=== PATIENT | female | born 1960 | race Caucasian/White ===

== ENCOUNTER → 2024-12-22 15:23 | Outpatient (BNVA) | payer OTHER, SELFPAY | PROVIDERS: PCP Internal Medicine; Visit Provider Surgery ==

== ENCOUNTER 2024-12-31 08:05 | Outpatient (AMB) | payer OTHER, SELFPAY ==
--- OUTSIDE RECORDS SUMMARY | 2024-12-31 08:14 | XMS_ITS | Clinical Summary ---
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 - Each Nare Active semaglutide (Wegovy) 0.25 mg/0.5 mL injection penIndications:C lass 3 severe obesity due to excess calories without serious comorbidity with body mass index (BMI) of 45.0 to 49.9 in adult Inject 0.25 mg under the skin every 7 (seven) days. 2 mL 11/05/2024 Active Active Problems Problem Noted Date Diagnosed Date Nausea and vomiting 10/23/2024 Current moderate episode of major depressive disorder (CMS/HCC V24, CMS/HCC V28) 08/10/2023 GERD (gastroesophageal reflux disease) 2 Hypertension 07/07/2022 Obesity 07/07/2022 Osteoarthritis 07/07/2022 Encounters Date Type Department Care Team Description 11/19/2024 Telephone Pediatrics - [address] [phone] Jose Rafael George MD prior auth 11/05/2024 9:45 AM EST Office Visit [facility] [address] [place] [phone] Jose Rafael George MD Follow-up exam (Primary Dx); Class 3 severe obesity due to excess calories without serious comorbidity with body mass index (BMI) of 45.0 to 49.9 in adult ([facility] V24, [facility] V28) 11/05/2024 Telephone [facility] - [facility] [address] [place], [place] [phone] Jose Rafael George MD Prior Authorization 10/23/2024 5:26 PM EST - 10/24/2024 2:13 PM EST Hospital Encounter [facility] Emergency [address] [place] [id number] Cora Noland DO Ishtiaq, Rizwan, MD Santoyo-Pach eco, Omar D, MD Intractable nausea (Primary Dx); Dizziness Discharge Disposition: Home or Self Care from Last 3 Months Immunizations Name Administration Dates Next Due Influenza, Unspecified 06/11/2023,06/15/2022 Medical History Medical History Date Comments Hypertension 07/07/2022 DX:Hypertension Obesity 07/07/2022 DX:Obesity GERD (gastroesophageal reflux disease) DX:GERD (gastroesophageal reflux disease) Osteoarthritis 07/07/2022 DX:Osteoarthriti s Social History Tobacco Use Types Packs/Day Years Used Date Smoking Tobacco: Never Smokeless Tobacco: Never Tobacco Cessation:Counseling Given: Not Answered Alcohol Use Standard Drinks/Week Comments Yes 0 (1 standard drink = 0.6 oz pur e alcohol) Comments No Sex and Gender Information Value Date Recorded Sex Assigned at Female 10/23/2024 5:35 PM EST Legal Sex Female 5:11 PM EST Gender Identity Female 10/23/2024 5:35 PM EST Sexual Orientation Straight 10/23/2024 5: 35 PM EST Obstetrics History Last Filed Vital Signs Vital Sign Reading Time Taken Comments Blood Pressure 117/80 11/05/2024 10:02 AM EST Pulse 84 11/05/2024 10:02 AM EST Temperature 36.5 ??C (97.7 ??F) 10/24/2024 6:22 AM ES T Respiratory Rate 16 10/24/2024 12:05 PM EST Oxygen Saturation 96% 10/24/2024 12:05 PM EST Inhaled Oxygen Concentration - - Weight 126 kg (277 lb 12.8 oz) 11/05/2024 10:02 AM EST Height 162.6 cm (5' 4 ) 11/05/2024 10:02 AM EST Body Mass Index 47.68 11/05/2024 10:02 AM EST Plan of Treatment Upcoming Encounters Date Type Department Care Team (Late st Contact Info) Description 01/13/2025 3:30 PM EDT Office Visit Internal Medicine - [facility] [address] [place], [place] [phone] Jose Rafael George MD [address] [place] [address] Health Maintenance Due Date Last Done Comments Breast Cancer Screening 1960 Pneumococcal Vaccine: 50+ Years (1 of 1 - PCV) 2011 Zoster Vaccines (1 of 2) 2011 RSV Immunization Adult Patients (1 - Risk 60-74 years 1-dose series) 2021 Depression Screening 08/20/2022 HIV Screening 08/20/2022 Social Influencers of Health Screening 08/20/2022 COVID-19 Vaccine ( season) 2024 09/08/2021, 01/20/2021, 12/23/2020 Hypertension/CHF/CAD Annual BMP Blood Test 10/24/2025 10/24/2024, 10/23/2024, 03/21/2024, Additional history exists Cervical Cancer Screening: Pap Smear 11/22/2025 11/22/2022 Cholesterol Screening (Lipid Panel) 10/24/2029 10/24/2024, 03/21/2024, 03/21/2024 DTaP,Tdap,and Td Vaccines (2 - Td or Tdap) 11/16/2029 11/17/2019 Colorectal Cancer Screening: Colonoscopy 10/26/2031 10/26/2021 Hepatitis C Screening Completed 04/19/2023 Influenza Vaccine Completed 08/04/2024, , 06/11/2023, Additional history exists HIB Vaccines Aged Out No longer eligi ble based on patient's age to complete this topic HPV Vaccines Aged Out No longer eligi ble based on patient's age to complete this topic Hepatitis A Vaccines Aged Out No long er eligible based on patient's age to complete this topic Hepatitis B Vaccines Aged Out No long er eligible based on patient's age to complete this topic IPV Vaccines Aged Out No longer eligi ble based on patient's age to complete this topic MMR Vaccines Aged Out No longer eligi ble based on patient's age to complete this topic Meningococcal ACWY Vaccine Aged Out N o longer eligible based on patient's age to complete this topic Meningococcal B Vaccine Aged Out No l onger eligible based on patient's age to complete this topic Pneumococcal Vaccine: Pediatrics (0 to 5 Years) and At-Risk Patients (6 to 64 Years) Aged Out No longer eligible based on patient's age to complete this topic RSV Immunization Patients Under 20 months Aged Out No longer eligible based on patient's age to complete this topic Varicella Vaccines Aged Out No longer eligible based on patient's age to complete this topic Procedures Procedure Name Priority Date/Time Associated Diagnosis Comments ECG ANNOTATED 10/27/2024 RESPIRATORY VIRUS PANEL MOLECULAR STUDY Routine 10/24/2024 9:[address] ANGIO HEAD/NECK WO AND/OR W CONTRAST STAT 10/24/2024 8:46 AM EST LIPID PANEL WITH REFLEX TO DIRECT LDL Add-On 10/24/2024 6:53 AM EST HEMOGLOBIN A1C Add-On 10/24/2024 6:53 AM EST THYROID STIMULATING HORMONE WITH REFLEX TO FREE T4 AND FREE T3 Add-On 10/24/2024 6:53 AM EST CBC WITH AUTO DIFFERENTIAL Routine 10/24/2024 6:53 AM EST MAGNESIUM Routine 10/24/2024 6:53 AM EST BASIC METABOLIC PANEL Routine 10/24/2024 6:53 AM EST CBC AND DIFFERENTIAL Routine 10/24/2024 6:53 AM EST IBRAHIM URINE CULTURE TUBE STAT 10/23/2024 9:15 PM EST URINALYSIS WITH REFLEX MICROSCOPIC AND CULTURE STAT 10/23/2024 9:15 PM EST URINALYSIS WITH REFLEX MICROSCOPIC AND CULTURE STAT 10/23/2024 9:[address] ABDOMEN PELVIS W CONTRAST STAT 10/23/2024 7:43 PM EST [id number], RSV, FLU A AND B QUALITATIVE RT-PCR, INTERNAL LAB STAT 10/23/2024 6:28 PM EST TROPONIN I HIGH SENSITIVITY STAT 10/23/2024 3:07 PM EST TROPONIN I HIGH SENSITIVITY STAT 10/23/2024 12:37 PM EST CBC WITH AUTO DIFFERENTIAL STAT 10/23/2024 12:37 PM EST MAGNESIUM STAT 10/23/2024 12:37 PM EST BASIC METABOLIC PANEL STAT 10/23/2024 12:37 PM EST CBC AND DIFFERENTIAL STAT 10/23/2024 12:37 PM EST ECG 12-LEAD STAT 10/23/2024 12:29 PM EST HM HEPATITIS C SCREENING Routine 04/19/2023 HM PAP SMEAR Routine 11/22/2022 HM COLONOSCOPY Routine 10/26/2021 from Last 3 Months or Most Recently Relevant to Health Maintenance Results * ECG-Annotated (10/27/2024) us Provider Onbase MD ECG ORDERABLES Final Result * Respiratory virus panel molecular study (10/24/2024 9:31 AM EST) Adenovirus Detection by PCR Not Detected Not Detected LAB MICROBIOLOGY METHOD 10/24/2024 10:44 AM [facility] Influenza A PCR Not Detected Not Detected LAB MICROBIOLOGY METHOD 10/24/2024 10:44 AM [facility] Influenza B PCR Not Detected Not Detected LAB MICROBIOLOGY METHOD 10/24/2024 10:44 AM [facility] Coronavirus 229E Not Detected Not Detected LAB MICROBIOLOGY METHOD 10/24/2024 10:44 AM [facility] Coronavirus HKU1 Not Detected Not Detected LAB MICROBIOLOGY METHOD 10/24/2024 10:44 AM [facility] Coronavirus OC43 Not Detected Not Detected LAB MICROBIOLOGY METHOD 10/24/2024 10:44 AM [facility] Coronavirus NL63 Not Detected Not Detected LAB MICROBIOLOGY METHOD 10/24/2024 10:44 AM [facility] Parainfluenza Virus 1 Not Detected Not Detected LAB MICROBIOLOGY METHOD 10/24/2024 10:44 AM [facility] Parainfluenza Virus 2 Not Detected Not Detected LAB MICROBIOLOGY METHOD 10/24/2024 10:44 AM [facility] Parainfluenza Virus 3 Not Detected Not Detected LAB MICROBIOLOGY METHOD 10/24/2024 10:44 AM [facility] Parainfluenza Virus 4 Not Detected Not Detected LAB MICROBIOLOGY METHOD 10/24/2024 10:44 AM [facility] RSV PCR Not Detected Not Detected LAB MICROBIOLOGY METHOD 10/24/2024 10:44 AM [facility] Human Metapneumovirus A and B Not Detected Not Detected LAB MICROBIOLOGY METHOD 10/24/2024 10:44 AM [facility] Rhinovirus/Entero virus Not Detected Not Detected LAB MICROBIOLOGY METHOD 10/24/2024 10:44 AM EST [facility] Bordetella pertussis Not Detected Not Detected LAB MICROBIOLOGY METHOD 10/24/2024 10:44 AM EST [facility] Bordetella parapertussis Not Detected Not Detected LAB MICROBIOLOGY METHOD 10/24/2024 10:44 AM EST [facility] Mycoplasma pneumo by PCR Not Detected Not Detected LAB MICROBIOLOGY METHOD 10/24/2024 10:44 AM EST [facility] Chlamydia pneumoniae Not Detected Not Detected LAB MICROBIOLOGY METHOD 10/24/2024 10:44 AM EST [facility] SARS COV-2 Not Detected Not Detected LAB MICROBIOLOGY METHOD 10/24/2024 10:44 AM [facility] Swab Both anterior nares / Unknown Non-blood Collection / Unknown 10/24/2024 9:31 AM EST 10/24/2024 9:44 AM EST [facility] - 10/24/2024 10:44 AM EST Testing was performed using the [employer] Respiratory Pathogen PCR Assay. All results must be correlated with the clinical findings. Results should not be used as the sole basis for diagnosis. False Negative results may occur from the presence of sequence variants in the region targeted by the assay or the presence of inhibitors. Results may be affected by concurrent antiviral/antimicrobial therapy or levels of organisms that are below the limit of detection. us Julius Crespo MD LAB MICROBIOLOGY - GENERAL ORD ERABLES Final Result [facility] [address] [place] [address], * CT Angio Head/Neck wo and/or w Contrast (10/24/2024 8:46 AM EST) Anatomical Region Laterality Modality Head and Neck Computed Tomogra phy 10/24/2024 12:5 8 PM EST Impressions 10/24/2024 1:02 PM EST NO ACUTE ABNORMALITY. -------- FINAL REPORT -------- Dictated By: Monique Henderson Dictated Date: 10/24/2024 12:58 ET Assigned Physician: Monique Henderson Reviewed and Electronically Signed By: Monique Henderson Signed Date: 10/24/2024 13:02 ET Workstation ID: [id number] Transcribed By: Self Edit Transcribed Date: 10/24/2024 12:58 ET Narrative 10/24/2024 1:02 PM EST PROCEDURE: CTA HEAD AND NECK INDICATION: Dizziness, non-specific TECHNIQUE: CTA of the head and neck with intravenous contrast. Multiplanar reformats. The examination was performed utilizing dose reduction techniques.3-D or MIP images were produced with postprocessing on an independent computer workstation. 90cc Omnipaque 370 injected. Scan was analyzed using Verimatrix AI based computer aided triage software. Total DLP: 1730 mGy/cm COMPARISON: ??No priors available. FINDINGS: ?? Noncon Brain: Cerebral hemispheres are symmetric without evidence for mass, hemorrhage or CT evidence for acute territorial infarct. ?? CTA Neck: There is a left-sided aortic arch. ??Great vessels are patent with conventional anatomy. Common carotid and internal carotid arteries are patent in the neck. ??Cervical vertebral arteries are patent. Visualized lung apices are clear. ??Soft tissues of the neck are normal. CTA Head: Intracranial portions of the internal carotid arteries are patent. Proximal middle and anterior circulation is patent. Vertebrobasilar system is patent. Proximal ophthalmic nurse are patent. Major dural venous sinuses opacify normally with contrast. Extracranial structures are unremarkable. ??Degenerative changes in the bones. Procedure Note Monique Henderson MD - 10/24/2024 PROCEDURE: CTA HEAD AND NECK INDICATION: Dizziness, non-specific TECHNIQUE: CTA of the head and neck with intravenous contrast. Multiplanarreformats. The examination was performed utilizing dose reductiontechniques.3-D or MIP images were produced with postprocessing on anindependent computer workstation. 90cc Omnipaque 370 injected. Scan wasanalyzed using [employer] Contact AI based computer aided triage software. Total DLP: 1730 mGy/cm COMPARISON: No priors available. FINDINGS: Noncon Brain: Cerebral hemispheres are symmetric without evidence for mass, hemorrhageor CT evidence for acute territorial infarct. CTA Neck: There is a left-sided aortic arch. Great vessels are patent withconventional anatomy. Common carotid and internal carotid arteries arepatent in the neck. Cervical vertebral arteries are patent. Visualized lung apices are clear. Soft tissues of the neck are normal. CTA Head: Intracranial portions of the internal carotid arteries are patent. Proximal middle and anterior circulation is patent. Vertebrobasilar system is patent. Proximal ophthalmic nurse are patent. Major dural venous sinuses opacify normally with contrast. Extracranial structures are unremarkable. Degenerative changes in thebones. IMPRESSION: NO ACUTE ABNORMALITY. -------- FINAL REPORT -------- Dictated By: Monique Henderson Dictated Date: 10/24/2024 12:58 ET Assigned Physician: Monique Henderson Reviewed and Electronically Signed By: Monique Henderson Signed Date: 10/24/2024 13:02 ET Workstation ID: [id number] Transcribed By: Self Edit Transcribed Date: 10/24/2024 12:58 ET us Cora Noland DO IMG CT PROCEDURES Final R esult * Thyroid stimulating hormone with reflex to free t4 and free t3 (10/24/2024 6:53 AM EST) [facility] TSH 0.82 0.40 - 4.00 mcIU/mL LAB CHEMISTRY METHOD 10/24/2024 8:04 AM EST [facility] Blood Venous blood specimen / Unknown Venipuncture / Unknown 10/24/2024 6:53 AM EST 10/24/2024 7:17 AM EST us Julius Crespo MD LAB BLOOD ORDERABLES Final Res ult [facility] [address] [place] [address], [place] [phone] * Lipid panel with reflex to direct LDL (10/24/2024 6:53 AM EST) Pathologist [facility] Cholesterol 158 0 - 200 mg/dL LAB CHEMISTRY METHOD 10/24/2024 7:56 AM EST [facility] Triglycerides 69 0 - 150 mg/dL LAB CHEMISTRY METHOD 10/24/2024 7:56 AM [facility] HDL 69 >=40 mg/dL LAB CHEMISTRY METHOD 10/24/2024 7:56 AM [facility] LDL Calculated 75 0 - 100 mg/dL LAB CHEMISTRY METHOD 10/24/2024 7:56 AM [facility] VLDL Cholesterol Antolin 13.8 mg/dL LAB CHEMISTRY METHOD 10/24/2024 7:56 AM [facility] Non HDL Chol. (LDL+VLDL) 89 <145 mg/dL LAB CHEMISTRY METHOD 10/24/2024 7:56 AM [facility] Chol/HDL Ratio 2.3 0.0 - 4.4 LAB CHEMISTRY METHOD 10/24/2024 7:56 AM [facility] Blood Venous blood specimen / Unknown Venipuncture / Unknown 10/24/2024 6:53 AM EST 10/24/2024 7:17 AM EST us Julius Crespo MD LAB BLOOD ORDERABLES Final Res ult [facility] [address] [place] [address], * (ABNORMAL) CBC auto differential (10/24/2024 6:53 AM EST) Only the most recent of2 resultswithin the time period is included. WBC 9.1 4.8 - 10.8 K/mcL LAB HEMETOLOGY METHOD 10/24/2024 7:28 AM [facility] RBC 4.00 3.80 - 4.80 M/mcL LAB HEMETOLOGY METHOD 10/24/2024 7:28 AM [facility] Hemoglobin 11.3(L) 11.5 - 16.0 g/dL LAB HEMETOLOGY METHOD 10/24/2024 7:28 AM [facility] Hematocrit 34.5(L) 35.0 - 47.0 % LAB HEMETOLOGY METHOD 10/24/2024 7:28 AM [facility] MCV 86.5 79.0 - 98.0 FL LAB HEMETOLOGY METHOD 10/24/2024 7:28 AM [facility] MCH 28.3 27.0 - 32.0 pcg LAB HEMETOLOGY METHOD 10/24/2024 7:28 AM [facility] MCHC 32.8 32.0 - 37.0 g/dL LAB HEMETOLOGY METHOD 10/24/2024 7:28 AM [facility] RDW 12.3 11.0 - 15.0 % LAB HEMETOLOGY METHOD 10/24/2024 7:28 AM [facility] Platelets 292 130 - 400 K/mcL LAB HEMETOLOGY METHOD 10/24/2024 7:28 AM [facility] MPV 10.2 7.0 - 11.0 FL LAB HEMETOLOGY METHOD 10/24/2024 7:28 AM [facility] NRBC 0.0 <1.0 % LAB HEMETOLOGY METHOD 10/24/2024 7:28 AM [facility] NRBC Absolute 0.00 <0.10 K/mcL LAB HEMETOLOGY METHOD 10/24/2024 7:28 AM [facility] Neutrophils Relative 79.3 % LAB HEMETOLOGY METHOD 10/24/2024 7:28 AM [facility] Lymphocytes Relative 15.1 % LAB HEMETOLOGY METHOD 10/24/2024 7:28 AM [facility] Monocytes Relative 4.9 % LAB HEMETOLOGY METHOD 10/24/2024 7:28 AM [facility] Eosinophils Relative 0.2 % LAB HEMETOLOGY METHOD 10/24/2024 7:28 AM EST [facility] Basophils Relative 0.2 % LAB HEMETOLOGY METHOD 10/24/2024 7:28 AM EST [facility] Immature Granulocytes Relative 0.3 % LAB HEMETOLOGY METHOD 10/24/2024 7:28 AM [facility] Neutrophils Absolute 7.19(H) 1.50 - 7.00 K/mcL LAB HEMETOLOGY METHOD 10/24/2024 7:28 AM EST [facility] Lymphocytes Absolute 1.37 1.00 - 5.00 K/mcL LAB HEMETOLOGY METHOD 10/24/2024 7:28 AM EST [facility] Monocytes Absolute 0.44 0.20 - 1.00 K/mcL LAB HEMETOLOGY METHOD 10/24/2024 7:28 AM [facility] Eosinophils Absolute 0.02 0.00 - 0.50 K/mcL LAB HEMETOLOGY METHOD 10/24/2024 7:28 AM EST [facility] Basophils Absolute 0.02 0.00 - 0.20 K/mcL LAB HEMETOLOGY METHOD 10/24/2024 7:28 AM EST [facility] Immature Granulocytes Absolute 0.03 0.00 - 0.03 K/mcL LAB HEMETOLOGY METHOD 10/24/2024 7:28 AM [facility] Blood Venous blood specimen / Unknown Venipuncture / Unknown 10/24/2024 6:53 AM EST 10/24/2024 7:17 AM EST us Julius Crespo MD LAB BLOOD ORDERABLES Final Res ult [facility]) [facility] [address] [place] [address], * Magnesium (10/24/2024 6:53 AM EST) Only the most recent of2 resultswithin the time period is included. Magnesium 2.3 1.9 - 2.6 mg/dL LAB CHEMISTRY METHOD 10/24/2024 7:56 AM EST [facility] Blood Venous blood specimen / Unknown Venipuncture / Unknown 10/24/2024 6:53 AM EST 10/24/2024 7:17 AM EST us Julius Crespo MD LAB BLOOD ORDERABLES Final Res ult Performing Organization Address [facility]/ZIP Co de Phone Number [facility] [address] [place] [address], [place] [phone] * Hemoglobin A1c (10/24/2024 6:53 AM EST) [facility] Hemoglobin A1C 5.6 <6.5 % LAB CHEMISTRY METHOD 10/24/2024 11:24 AM EST [facility] Mean Bld Glu Estim. 114 mg/dL LAB CHEMISTRY METHOD 10/24/2024 11:24 AM EST [facility] Blood Venous blood specimen / Unknown Venipuncture / Unknown 10/24/2024 6:53 AM EST 10/24/2024 7:17 AM EST us Julius Crespo MD LAB BLOOD ORDERABLES Final Res ult Performing Organization Address [facility]/ZIP Ri de Phone Number [facility] [address] [place] [address], [place] [phone] * (ABNORMAL) Basic metabolic panel (10/24/2024 6:53 AM EST) Only the most recent of2 resultswithin the time period is included. [facility] Sodium 141 133 - 145 mmol/L LAB CHEMISTRY METHOD 10/24/2024 7:56 AM EST [facility] Potassium 3.7 3.5 - 5.5 mmol/L LAB CHEMISTRY METHOD 10/24/2024 7:56 AM EST [facility] Chloride 111(H) 96 - 110 mmol/L LAB CHEMISTRY METHOD 10/24/2024 7:56 AM [facility] CO2 26 21 - 32 mmol/L LAB CHEMISTRY METHOD 10/24/2024 7:56 AM [facility] Anion Gap 4 3 - 11 LAB CHEMISTRY METHOD 10/24/2024 7:56 AM [facility] Glucose 104(H) 70 - 100 mg/dL LAB CHEMISTRY METHOD 10/24/2024 7:56 AM [facility] BUN 10 5 - 25 mg/dL LAB CHEMISTRY METHOD 10/24/2024 7:56 AM [facility] Creatinine 0.71 0.50 - 1.10 mg/dL LAB CHEMISTRY METHOD 10/24/2024 7:56 AM [facility] eGFR 96 >=60 mL/min/1. 73m2 LAB CHEMISTRY METHOD 10/24/2024 7:56 AM [facility] Comment:Calculation based on the??Chronic Kidney Disease Epidemiology Collaboration (CKD-EPI) equation refit??without adjustment for race. BUN/Creatinine Ratio 14.1 LAB CHEMISTRY METHOD 10/24/2024 7:56 AM [facility] Calcium 9.3 8.5 - 10.5 mg/dL LAB CHEMISTRY METHOD 10/24/2024 7:56 AM [facility] Blood Venous blood specimen / Unknown Venipuncture / Unknown 10/24/2024 6:53 AM EST 10/24/2024 7:17 AM EST us Julius Crespo MD LAB BLOOD ORDERABLES Final Res ult [facility] [address] [place] [address], * (ABNORMAL) Urinalysis with reflex microscopic and culture (10/23/2024 9:15 PM EST) Specific [place] Urine 1.042(H) 1.003 - 1.030 LAB URINALYSIS - AUTOMATED METHOD 10/23/2024 9:32 PM [facility] pH, Urine 7.0 5.0 - 8.0 pH LAB URINALYSIS - AUTOMATED METHOD 10/23/2024 9:32 PM [facility] Leukocytes, Urine Negative Negative LAB URINALYSIS - AUTOMATED METHOD 10/23/2024 9:32 PM [facility] Nitrite, Urine Negative Negative LAB URINALYSIS - AUTOMATED METHOD 10/23/2024 9:32 PM [facility] Protein, Urine Negative <=Trace mg/dL LAB URINALYSIS - AUTOMATED METHOD 10/23/2024 9:32 PM [facility] Glucose, Urine Negative Negative mg/dL LAB URINALYSIS - AUTOMATED METHOD 10/23/2024 9:32 PM [facility] Ketones, Urine Trace(A) Negative mg/dL LAB URINALYSIS - AUTOMATED METHOD 10/23/2024 9:32 PM [facility] Urobilinogen, Urine 0.2 0.2 - 1.0 mg/dL LAB URINALYSIS - AUTOMATED METHOD 10/23/2024 9:32 PM [facility] Bilirubin, Urine Negative Negative LAB URINALYSIS - AUTOMATED METHOD 10/23/2024 9:32 PM [facility] Blood, Urine Negative Negative LAB URINALYSIS - AUTOMATED METHOD 10/23/2024 9:32 PM [facility] Urine Urine specimen obtained by clean catch procedure / Unknown Non-blood Collection / Unknown 10/23/2024 9:15 PM EST 10/23/2024 9:26 PM EST us Cora Noland DO LAB URINE ORDERABLES Raquel l Result [facility] [address] [place] [address], [place] [phone] * Ibrahim urine culture tube (10/23/2024 9:15 PM EST) Extra Tube Hold for add-ons. 10/23/2024 11:01 PM EST [facility] Comment:Auto resulted. Urine Urine specimen obtained by clean catch procedure / Unknown Non-blood Collection / Unknown 10/23/2024 9:15 PM EST 10/23/2024 9:26 PM EST us Cora Noland DO LAB URINE ORDERABLES Raquel l Result [facility] ([facility]) [facility] [address] [place] [address], [place] [phone] * CT Abdomen Pelvis w Contrast (10/23/2024 7:43 PM EST) Anatomical Region Laterality Modality Body Computed Tomogra phy 10/23/2024 8:14 PM EST Impressions 10/23/2024 8:14 PM EST 1. No acute intraabdominal or pelvic pathology. This document has been electronically signed by: Christopher Gutierrez MD on 10/23/2024 20:14:57 Narrative 10/23/2024 8:14 PM EST INDICATION: Abdominal abscess/infection suspected CT abdomen and pelvis with contrast Comparison: None Findings: Small hiatal hernia. Visualized lungs are clear. Hepatic steatosis. Fatty atrophy of the distal pancreas. No pancreatic duct dilatation. Spleen, gallbladder, and adrenal glands are within normal limits. No hydronephrosis. Symmetric contrast enhancement of the kidneys. Left cortical cysts. No biliary duct dilatation. No bowel obstruction, pneumoperitoneum, or pneumatosis. Pelvic contents unremarkable. Hemangioma at L3. No acute fracture. Procedure Note Christopher Gutierrez MD - 10/23/2024 INDICATION: Abdominal abscess/infection suspected CT abdomen and pelvis with contrast Comparison: None Findings: Small hiatal hernia. Visualized lungs are clear. Hepatic steatosis. Fatty atrophy of the distal pancreas. No pancreatic duct dilatation. Spleen, gallbladder, and adrenal glands are within normal limits. No hydronephrosis. Symmetric contrast enhancement of the kidneys. Left cortical cysts. No biliary duct dilatation. No bowel obstruction, pneumoperitoneum, or pneumatosis. Pelvic contents unremarkable. Hemangioma at L3. No acute fracture. IMPRESSION: 1. No acute intraabdominal or pelvic pathology. This document has been electronically signed by: Christopher Gutierrez MD on 10/23/2024 20:14:57 [facility] PROCEDURES Final R esult * [id number], RSV, Influenza A and B qualitative RT-PCR (10/23/2024 6:28 PM EST) Pathologist [facility] Influenza A PCR Not Detected Not Detected LAB MICROBIOLOGY METHOD 10/23/2024 8:00 PM EST [facility] Influenza B PCR Not Detected Not Detected LAB MICROBIOLOGY METHOD 10/23/2024 8:00 PM [facility] RSV PCR Not Detected Not Detected LAB MICROBIOLOGY METHOD 10/23/2024 8:00 PM [facility] SARS COV-2 Not Detected Not Detected LAB MICROBIOLOGY METHOD 10/23/2024 8:00 PM [facility] Swab Nasopharyngeal structure / Unknown Non-blood Collection / Unknown 10/23/2024 6:28 PM EST 10/23/2024 7:09 PM EST [facility] - 10/23/2024 8:00 PM EST Disclaimer: ??Testing was performed using the [employer] GeneXpert Xpress SARS-CoV-2 _Flu_RSV PLUS PCR assay. ??The manner in which this information is used to guide patient care is the responsibility of the healthcare provider. ??Results should be correlated with the clinical history, epidemiological data, and other data available to the clinician evaluating the patient. ??Negative results do not preclude infection. ??This test has been authorized by the FDA under an Emergency Use Authorization (EUA). ??This test is only authorized for the duration of time the declaration that circumstances exist justifying the authorization of the emergency use of in vitro diagnostic tests for detection of SARS-CoV-2 virus and/or diagnosis of COVID-19 infection under section 564 (b) (1) of the Act, 21 U.S.C 360bbb-3 (b) (1), unless the authorization is terminated or revoked sooner. ?? Reference Range: Not Detected Fact sheet for Healthcare providers can be found at https://www.fda.gov/media/330837/download. ?? Fact sheet for Healthcare patients can be found at https://www.fda.gov/media/711994/download. Cora Noland DO LAB MICROBIOLOGY - GENERA L ORDERABLES Final Result Performing Organization Address City/[facility]/ZIP Co de Phone Number [facility] [address] [place] [address], * Troponin I high sensitivity (10/23/2024 3:07 PM EST) Only the most recent of2 resultswithin the time period is included. [facility] High Sensitivity Troponin I 33 <=54 ng/L LAB CHEMISTRY METHOD 10/23/2024 5:17 PM EST [facility] Blood Venous blood specimen / Unknown Venipuncture / Unknown 10/23/2024 3:07 PM EST 10/23/2024 3:38 PM EST Narrative [facility] - 10/23/2024 5:17 PM EST High levels of biotin in samples may falsely decrease hsTroponin values. ??Use caution when interpreting hsTroponin results in patients taking biotin who exhibit renal impairment (eGFR <60) or in patients taking more than 20 mg/day of biotin. Judah Lala MD LAB BLOOD ORDERABLES Final Result Performing Organization Address [facility]/ZIP Co de Phone Number [facility] [address] [place] [address], [place] [phone] * ECG 12 lead (10/23/2024 12:29 PM EST) [facility] Ventricular Rate ECG 75 BPM GEMUSE Atrial Rate 75 BPM GEMUSE P-R Interval 116 ms GEMUSE QRS Duration 76 ms GEMUSE Q-T Interval 380 ms GEMUSE QTc 424 ms GEMUSE P Wave [place] 38 degrees GEMUSE R [place] 5 degrees GEMUSE T [place] 7 degrees GEMUSE ECG Interpretation Normal sinus rhythm Normal ECG No previous ECGs available Confirmed by DAVID SIERRA ([id number]) on 10/26/2024 8:48:41 AM GEMUSE 10/23/2024 12:2 9 PM EST 10/26/2024 8:48 AM EST Cora Vlad Wai Ludin DO ECG ORDERABLES Final Res ult GEMUSE * Hepatitis C Screening (04/19/2023) Pathologist [facility] Hepatitis C Screening abstracted Historical Provider HEALTH MAINTENANCE Final Result * Pap Smear (11/22/2022) Pap smear normal,abs tracted Historical Provider HEALTH MAINTENANCE Final Result * Colonoscopy (10/26/2021) Pathologist [facility] Colonoscopy normal,abs tracted Anatomical Region Laterality Modality Other Historical Provider HEALTH MAINTENANCE Final Result from Last 3 Months or Most Recently Relevant to Health Maintenance Insurance [facility] Advance Directives * Full Code - Default (Latest Code Status on File) Date Activated Date Inactivated Comments 10/23/2024 10:41 PM 10/24/2024 4:13 PM This is ord er is used when code status has not been discussed with the patient, or code status is otherwise unknown/unconfirmed To update the patient's code status, place a code status order. Do not modify or discontinue any currently active code status orders. Care Teams [employer] Relationship Specialty Start Date End Date Jose Rafael George MD [address] [place] [id number] PCP - General Internal Medicine 10/23/24
--- NOTE | 2024-12-31 12:16 | MHC.OFFVISWM ---
VS Expanded 12/31/24 12:38 Height 5 ft 4 in Weight 275 lb 4 oz BMI 47.2 Body Fat % 45.2 Body Fat Mass 124.4 Fat Free Mass 151 Visceral Fat Rating 17 Body Water % 38.9 Body Water Mass 107.2 Basal Metabolic Rate/Score 2,117 Intake Visit Reasons: [employer] BMI 47.2 Allergies acetaminophen [From Percocet] Adverse Reaction (Intermediate, Verified 12/31/24 12:16) Nausea and Vomiting oxycodone [From Percocet] Adverse Reaction (Intermediate, Verified 12/31/24 12:16) Nausea and Vomiting propoxyphene [From Darvocet-N] Adverse Reaction (Intermediate, Verified 12/31/24 12:16) Nausea and Vomiting Medication List - Last Reconciled 12/31/24 by Maurice Coleman MD cholecalciferol (vitamin D3) 50 mcg PO DAILY fluticasone propionate 50 mcg/actuation sprays intranasal magnesium 250 mg PO DAILY pantoprazole 40 mg PO DAILY HPI HPI [employer] SW[employer] BMI 47.2: Details: Start time: 12.10pm, End time: 12.42pm ?I spent 27 minutes speaking with the patient on the phone plus an additional 5 minutes reviewing and updating records for a total of 32 minutes HPI Comments Details: Previous weight loss efforts: WW, protein shakes, Ozempic (high copay) Wakes up: 5.30am, Sleeps:10pm Breakfast: 7am (Fruit smoothie) Lunch: 12pm (chicken, vegetables, starch) Dinner: 6pm (pasta) Snacks: 10am (2 oranges), 3-4pm (fruits: orange or banana) Exercise: has home treadmill, will have a bike Beverages: Coffee: (1 cup/d black), tea: none, soda: none, juice: none, ETOH: none PFSH Medical History (Updated 12/31/24 @ 12:18 by Maurice Coleman MD) GERD (gastroesophageal reflux disease) DJD (degenerative joint disease) Sleep apnea Morbid obesity Surgical History (Updated 12/22/24 @ 15:46 by Yamil Pickett [facility]) History of esophagogastroduodenoscopy (EGD) H/O colonoscopy Hx of section Family History (Updated 12/22/24 @ 15:48 by DANIEL Puri) Paternal Grandmother Pancreatic cancer Maternal Grandfather Pancreatic cancer Sister Cervical cancer Sister Breast cancer Mother Breast cancer Social History (Updated 12/22/24 @ 15:49 by DANIEL Puri) Alcohol intake: current Alcohol intake frequency: holidays/special occasions only Patient Tobacco Use Status: Never used Tobacco Telehealth Telehealth Telehealth Platform: Telephone Location of provider rendering services: practice address Location of patient: address on file Patient Identification confirmed using: Name, : Yes Telehealth method: voice only Patient verbally consented to treatment: Yes Patient verbally consented to billing insurance company: Yes Patient informed of any privacy concerns related to visit: Yes Minutes spent on Phone/Video with Pt.: 32 Assessment & Plan Assessment & Plan (1) Morbid obesity: Code(s): E66.01 - Morbid (severe) obesity due to excess calories Category: Medical Plan: 1. We discussed in detail the available therapeutic options: 1) our lifestyle intervention program that has an average weight loss of 10% in 3 months.? 2) Weight loss medications. Her insurance requires participation in a lifestlyle program for 3 months before medications can be covered. 3) We also discussed about the lap sleeve gastrectomy. I emphasized the importance of close follow-up, adherence to instructions and good communication. The surgery does not replace the need to change your lifestlyle which is the cause of the obesity problem. The surgery provides the motivation to try again to change your lifestyle, it reduces the appetite and make the transition to a better lifestyle easier and doubles the amount of weight you would lose compared to doing the lifestyle change without the surgery. You will need to be on a liquid diet with protein shakes for 2 weeks before surgery to maximize weight loss and boost your nutritional status to recover better from surgery and also for the first two weeks after surgery to let the stomach heal before we introduce other foods. After the first 2 weeks we will introduce protein bars and soft foods like scrambled eggs, cottage cheese and yogurt and after the 6th week will introduce meat, fish and cooked vegetables in small amounts. Over time you should be able to eat everything in small amounts. Side effects like nausea, vomiting, heartburn or abdominal pain are not common in the practice unless you are not following in the practice. This operation requires lifetime commitment to following in our practice and communication with me. You will much less weight and experience side effects if you don?t communicate or not following in the practice. Complications are rare and in our practice is about 1/10 of the national average. The patient is interested in bariatric surgery and she will call her insurance plan to confirm if she has any additional copay except the deductible that she would have to pay and she will get back to me with her decision.
[2024-12-31 12:38] VITALS: BMI 47.2
== END 2024-12-31 12:43 | disposition home or self-care (01) ==
LOC: HO.HBS 08:05
PROVIDERS: PCP Internal Medicine; Visit Provider Surgery
DX: E66.01 Morbid (severe) obesity due to excess calories (principal); E66.813 Obesity, class 3; Z68.42 Body mass index [BMI] 45.0-49.9, adult
CPT/HCPCS: 98009

== ENCOUNTER → 2024-12-31 08:05 | Outpatient (BNVA) | payer OTHER, SELFPAY | PROVIDERS: PCP Internal Medicine; Visit Provider Surgery ==

== ENCOUNTER 2025-01-08 08:10 | Outpatient (REF) | payer OTHER, SELFPAY ==
--- NOTE | ~2025-01-08 | XR_ITS ---
EXAMINATION: XR CHEST 2 VIEWS HISTORY: E66.01 - Morbid (severe) obesity due to excess calories COMPARISON: There are no prior studies for comparison. FINDINGS: PA and lateral views of the chest are submitted. The lungs are expanded and clear. There is no pleural effusion, pneumothorax, or pulmonary vascular congestion. The heart is top normal in size. There is mild degenerative disc disease of the spine. XR/XR chest 2V IMPRESSION: Borderline cardiomegaly. The lungs are clear. Electronically signed by: Aníbal Escobedo MD 01/09/2025 08:09 AM EDT
--- OUTSIDE RECORDS SUMMARY | 2025-01-08 08:23 | XMS_ITS | Clinical Summary ---
Author Organization [address] [facility] [facility] Building Address [address] [place] [address] Phone Care Team Providers Care Yard Cleaner Name Role Phone Jose Rafael George MD Primary Care Provider [phone] Allergies Active Allergy Reactions Criticality Noted Date [...] (BMI) of 45.0 to 49.9 in adult ([facility] V24, [facility] V28) Inject 0.25 mg under the skin every 7 (seven) days. 2 mL 11/05/2024 Active Active Problems Problem Noted Date Diagnosed Date Nausea and vomiting 10/23/2024 Current moderate episode of major depressive disorder ([facility] V24, [facility] V28) 08/10/2023 GERD (gastroesophageal reflux disease) Hypertension 07/07/2022 Obesity 07/07/2022 Osteoarthritis 07/07/2022 Encounters Date Type Department Care Team Description 11/19/2024 Telephone Pediatrics - [address] [phone] Jose Rafael George MD prior auth 11/05/2024 9:45 AM EST Office Visit [employer] [facility] [address] [place], [place] [phone] Jose Rafael George MD Follow-up exam (Primary Dx); Class 3 severe obesity due to excess calories without serious comorbidity with body mass index (BMI) of 45.0 to 49.9 in adult ([facility] V24, [facility] V28) 11/05/2024 Telephone [employer] [facility] [address] [place], [place] [phone] Jose Rafael George MD Prior Authorization 10/23/2024 5:26 PM EST - 10/24/2024 2:13 PM EST Hospital Encounter [facility] Emergency [address] [place] [id number] Cora Noland DO Ishtiaq, Rizwan, MD Santoyo-Pach [...] PM EDT [facility] [address] [place] [phone] Jose Rafael George MD [address] [place] [address] Health Maintenance Due Date Last Done Comments [...] W CONTRAST STAT 10/23/2024 7:43 PM EST [id number], RSV, FLU A AND B QUALITATIVE RT-PCR, [...] Detected LAB MICROBIOLOGY METHOD 10/24/2024 10:44 AM [facility] Influenza A PCR Not Detected Not Detected LAB MICROBIOLOGY METHOD 10/24/2024 10:44 AM [facility] Influenza B PCR Not Detected Not Detected LAB MICROBIOLOGY METHOD 10/24/2024 10:44 AM [facility] Coronavirus 229E Not Detected Not Detected LAB MICROBIOLOGY METHOD 10/24/2024 10:44 AM [facility] Coronavirus HKU1 Not Detected Not Detected LAB MICROBIOLOGY METHOD 10/24/2024 10:44 AM [facility] Coronavirus OC43 Not Detected Not Detected LAB MICROBIOLOGY METHOD 10/24/2024 10:44 AM [facility] Coronavirus NL63 Not Detected Not Detected LAB MICROBIOLOGY METHOD 10/24/2024 10:44 AM [facility] Parainfluenza Virus 1 Not Detected Not Detected LAB MICROBIOLOGY METHOD 10/24/2024 10:44 AM [facility] Parainfluenza Virus 2 Not Detected Not Detected LAB MICROBIOLOGY METHOD 10/24/2024 10:44 AM [facility] Parainfluenza Virus 3 Not Detected Not Detected LAB MICROBIOLOGY METHOD 10/24/2024 10:44 AM [facility] Parainfluenza Virus 4 Not Detected Not Detected LAB MICROBIOLOGY METHOD 10/24/2024 10:44 AM [facility] RSV PCR Not Detected Not Detected LAB MICROBIOLOGY METHOD 10/24/2024 10:44 AM [facility] Human Metapneumovirus A and B Not Detected Not Detected LAB MICROBIOLOGY METHOD 10/24/2024 10:44 AM [facility] Rhinovirus/Entero virus Not Detected Not Detected LAB MICROBIOLOGY METHOD 10/24/2024 10:44 AM EST [facility] Bordetella pertussis Not Detected Not Detected LAB MICROBIOLOGY METHOD 10/24/2024 10:44 AM EST [facility] Bordetella parapertussis Not Detected Not Detected LAB MICROBIOLOGY METHOD 10/24/2024 10:44 AM EST [facility] Mycoplasma pneumo by PCR Not Detected Not Detected LAB MICROBIOLOGY METHOD 10/24/2024 10:44 AM EST [facility] Chlamydia pneumoniae Not Detected Not Detected LAB MICROBIOLOGY METHOD 10/24/2024 10:44 AM EST [facility] SARS COV-2 Not Detected Not Detected LAB MICROBIOLOGY METHOD 10/24/2024 10:44 AM [facility] Swab Both anterior nares / Unknown Non-blood Collection / Unknown 10/24/2024 9:31 AM EST 10/24/2024 9:44 AM EST [facility] - 10/24/2024 10:44 AM EST Testing was performed using the [employer] Respiratory Pathogen PCR Assay. All results must [...] MICROBIOLOGY - GENERAL ORD ERABLES Final Result [facility] [address] [place] [address], * CT Angio Head/Neck wo and/or w [...] Signed Date: 10/24/2024 13:02 ET Workstation ID: [id number] Transcribed By: Self Edit Transcribed Date: 10/24/2024 12:58 ET Narrative 10/24/2024 1:02 PM EST PROCEDURE: CTA HEAD AND NECK INDICATION: Dizziness, non-specific TECHNIQUE: CTA of the head and neck with intravenous contrast. Multiplanar reformats. The examination was performed utilizing dose reduction techniques.3-D or MIP images were produced with postprocessing on an independent computer workstation. 90cc Omnipaque 370 injected. Scan was analyzed using [employer] AI based computer aided triage software. Total [...] is patent. Vertebrobasilar system is patent. Proximal bog worker are patent. Major dural venous sinuses opacify [...] 90cc Omnipaque 370 injected. Scan wasanalyzed using [employer] Contact AI based computer aided triage software. [...] is patent. Vertebrobasilar system is patent. Proximal bog worker are patent. Major dural venous sinuses opacify normally with contrast. Extracranial structures are unremarkable. Degenerative changes in thebones. IMPRESSION: NO ACUTE ABNORMALITY. -------- FINAL REPORT -------- Dictated By: Monique Henderson Dictated Date: 10/24/2024 12:58 ET Assigned Physician: Monique Henderson Reviewed and Electronically Signed By: Monique Henderson Signed Date: 10/24/2024 13:02 ET Workstation ID: [id number] Transcribed By: Self Edit Transcribed Date: 10/24/2024 12:58 ET us Cora Noland DO IMG CT PROCEDURES Final R esult * Thyroid stimulating hormone with reflex to free t4 and free t3 (10/24/2024 6:53 AM EST) [facility] TSH 0.82 0.40 - 4.00 mcIU/mL LAB CHEMISTRY METHOD 10/24/2024 8:04 AM EST [facility] Blood Venous blood specimen / Unknown Venipuncture / Unknown 10/24/2024 6:53 AM EST 10/24/2024 7:17 AM EST us Julius Crespo MD LAB BLOOD ORDERABLES Final Res ult [facility] [address] [place] [address], [place] [phone] * Lipid panel with reflex to direct LDL (10/24/2024 6:53 AM EST) [facility] Cholesterol 158 0 - 200 mg/dL LAB CHEMISTRY METHOD 10/24/2024 7:56 AM [facility] Triglycerides 69 0 - 150 mg/dL LAB CHEMISTRY METHOD 10/24/2024 7:56 AM [facility] HDL 69 >=40 mg/dL LAB CHEMISTRY METHOD 10/24/2024 7:56 AM [facility] LDL Calculated 75 0 - 100 mg/dL LAB CHEMISTRY METHOD 10/24/2024 7:56 AM [facility] VLDL Cholesterol Antolin 13.8 mg/dL LAB CHEMISTRY METHOD 10/24/2024 7:56 AM [facility] Non HDL Chol. (LDL+VLDL) 89 <145 mg/dL LAB CHEMISTRY METHOD 10/24/2024 7:56 AM [facility] Chol/HDL Ratio 2.3 0.0 - 4.4 LAB CHEMISTRY METHOD 10/24/2024 7:56 AM [facility] Blood Venous blood specimen / Unknown Venipuncture / Unknown 10/24/2024 6:53 AM EST 10/24/2024 7:17 AM EST us Julius Crespo MD LAB BLOOD ORDERABLES Final Res ult [facility] [address] [place] [address], * (ABNORMAL) CBC auto differential (10/24/2024 6:53 AM EST) Only the most recent of2 resultswithin the time period is included. WBC 9.1 4.8 - 10.8 K/mcL LAB HEMETOLOGY METHOD 10/24/2024 7:28 AM [facility] RBC 4.00 3.80 - 4.80 M/mcL LAB HEMETOLOGY METHOD 10/24/2024 7:28 AM [facility] Hemoglobin 11.3(L) 11.5 - 16.0 g/dL LAB HEMETOLOGY METHOD 10/24/2024 7:28 AM [facility] Hematocrit 34.5(L) 35.0 - 47.0 % LAB HEMETOLOGY METHOD 10/24/2024 7:28 AM [facility] MCV 86.5 79.0 - 98.0 FL LAB HEMETOLOGY METHOD 10/24/2024 7:28 AM [facility] MCH 28.3 27.0 - 32.0 pcg LAB HEMETOLOGY METHOD 10/24/2024 7:28 AM [facility] MCHC 32.8 32.0 - 37.0 g/dL LAB HEMETOLOGY METHOD 10/24/2024 7:28 AM [facility] RDW 12.3 11.0 - 15.0 % LAB HEMETOLOGY METHOD 10/24/2024 7:28 AM [facility] Platelets 292 130 - 400 K/mcL LAB HEMETOLOGY METHOD 10/24/2024 7:28 AM [facility] MPV 10.2 7.0 - 11.0 FL LAB HEMETOLOGY METHOD 10/24/2024 7:28 AM [facility] NRBC 0.0 <1.0 % LAB HEMETOLOGY METHOD 10/24/2024 7:28 AM [facility] NRBC Absolute 0.00 <0.10 K/mcL LAB HEMETOLOGY METHOD 10/24/2024 7:28 AM [facility] Neutrophils Relative 79.3 % LAB HEMETOLOGY METHOD 10/24/2024 7:28 AM [facility] Lymphocytes Relative 15.1 % LAB HEMETOLOGY METHOD 10/24/2024 7:28 AM [facility] Monocytes Relative 4.9 % LAB HEMETOLOGY METHOD 10/24/2024 7:28 AM [facility] Eosinophils Relative 0.2 % LAB HEMETOLOGY METHOD 10/24/2024 7:28 AM EST [facility] Basophils Relative 0.2 % LAB HEMETOLOGY METHOD 10/24/2024 7:28 AM [facility] Immature Granulocytes Relative 0.3 % LAB HEMETOLOGY METHOD 10/24/2024 7:28 AM [facility] Neutrophils Absolute 7.19(H) 1.50 - 7.00 K/mcL LAB HEMETOLOGY METHOD 10/24/2024 7:28 AM EST [facility] Lymphocytes Absolute 1.37 1.00 - 5.00 K/mcL LAB HEMETOLOGY METHOD 10/24/2024 7:28 AM [facility] Monocytes Absolute 0.44 0.20 - 1.00 K/mcL LAB HEMETOLOGY METHOD 10/24/2024 7:28 AM [facility] Eosinophils Absolute 0.02 0.00 - 0.50 K/mcL LAB HEMETOLOGY METHOD 10/24/2024 7:28 AM EST [facility] Basophils Absolute 0.02 0.00 - 0.20 K/mcL LAB HEMETOLOGY METHOD 10/24/2024 7:28 AM [facility] Immature Granulocytes Absolute 0.03 0.00 - 0.03 K/mcL LAB HEMETOLOGY METHOD 10/24/2024 7:28 AM [facility] Blood Venous blood specimen / Unknown Venipuncture / Unknown 10/24/2024 6:53 AM EST 10/24/2024 7:17 AM EST us Julius Crespo MD LAB BLOOD ORDERABLES Final Res ult [facility] [address] [place] [address], * Magnesium (10/24/2024 6:53 AM EST) Only the most recent of2 resultswithin the time period is included. [facility] Magnesium 2.3 1.9 - 2.6 mg/dL LAB CHEMISTRY METHOD 10/24/2024 7:56 AM EST [facility] Blood Venous blood specimen / Unknown Venipuncture / Unknown 10/24/2024 6:53 AM EST 10/24/2024 7:17 AM EST Julius Crespo MD LAB BLOOD ORDERABLES Final Res ult Performing Organization Address [facility]/ZIP Co de Phone Number [facility] [address] [place] [address], [place] [phone] * Hemoglobin A1c (10/24/2024 6:53 AM EST) [facility] Hemoglobin A1C 5.6 <6.5 % LAB CHEMISTRY METHOD 10/24/2024 11:24 AM EST [facility] Mean Bld Glu Estim. 114 mg/dL LAB CHEMISTRY METHOD 10/24/2024 11:24 AM EST [facility] Blood Venous blood specimen / Unknown Venipuncture / Unknown 10/24/2024 6:53 AM EST 10/24/2024 7:17 AM EST us Julius Crespo MD LAB BLOOD ORDERABLES Final Res ult Performing Organization Address [facility]/ZIP Co de Phone Number [facility] [address] [place] [address], [place] [phone] * (ABNORMAL) Basic metabolic panel (10/24/2024 6:53 AM EST) Only the most recent of2 resultswithin the time period is included. [facility] Sodium 141 133 - 145 mmol/L LAB CHEMISTRY METHOD 10/24/2024 7:56 AM EST [facility] Potassium 3.7 3.5 - 5.5 mmol/L LAB CHEMISTRY METHOD 10/24/2024 7:56 AM EST [facility] Chloride 111(H) 96 - 110 mmol/L LAB CHEMISTRY METHOD 10/24/2024 7:56 AM [facility] CO2 26 21 - 32 mmol/L LAB CHEMISTRY METHOD 10/24/2024 7:56 AM [facility] Anion Gap 4 3 - 11 LAB CHEMISTRY METHOD 10/24/2024 7:56 AM [facility] Glucose 104(H) 70 - 100 mg/dL LAB CHEMISTRY METHOD 10/24/2024 7:56 AM [facility] BUN 10 5 - 25 mg/dL LAB CHEMISTRY METHOD 10/24/2024 7:56 AM [facility] Creatinine 0.71 0.50 - 1.10 mg/dL LAB CHEMISTRY METHOD 10/24/2024 7:56 AM [facility] eGFR 96 >=60 mL/min/1. 73m2 LAB CHEMISTRY METHOD 10/24/2024 7:56 AM [facility] Comment:Calculation based on the??Chronic Kidney Disease Epidemiology Collaboration (CKD-EPI) equation refit??without adjustment for race. BUN/Creatinine Ratio 14.1 LAB CHEMISTRY METHOD 10/24/2024 7:56 AM [facility] Calcium 9.3 8.5 - 10.5 mg/dL LAB CHEMISTRY METHOD 10/24/2024 7:56 AM [facility] Blood Venous blood specimen / Unknown Venipuncture / Unknown 10/24/2024 6:53 AM EST 10/24/2024 7:17 AM EST us Julius Crespo MD LAB BLOOD ORDERABLES Final Res ult [facility] [address] [place] [address], [place] [phone] * (ABNORMAL) Urinalysis with reflex microscopic and culture (10/23/2024 9:15 PM EST) Specific Guin Urine 1.042(H) 1.003 - 1.030 LAB URINALYSIS - AUTOMATED METHOD 10/23/2024 9:32 PM [facility] pH, Urine 7.0 5.0 - 8.0 pH LAB URINALYSIS - AUTOMATED METHOD 10/23/2024 9:32 PM [facility] Leukocytes, Urine Negative Negative LAB URINALYSIS - AUTOMATED METHOD 10/23/2024 9:32 PM [facility] Nitrite, Urine Negative Negative LAB URINALYSIS - AUTOMATED METHOD 10/23/2024 9:32 PM [facility] Protein, Urine Negative <=Trace mg/dL LAB URINALYSIS - AUTOMATED METHOD 10/23/2024 9:32 PM [facility] Glucose, Urine Negative Negative mg/dL LAB URINALYSIS - AUTOMATED METHOD 10/23/2024 9:32 PM [facility] Ketones, Urine Trace(A) Negative mg/dL LAB URINALYSIS - AUTOMATED METHOD 10/23/2024 9:32 PM [facility] Urobilinogen, Urine 0.2 0.2 - 1.0 mg/dL LAB URINALYSIS - AUTOMATED METHOD 10/23/2024 9:32 PM [facility] Bilirubin, Urine Negative Negative LAB URINALYSIS - AUTOMATED METHOD 10/23/2024 9:32 PM [facility] Blood, Urine Negative Negative LAB URINALYSIS - AUTOMATED METHOD 10/23/2024 9:32 PM [facility] Urine Urine specimen obtained by clean catch procedure / Unknown Non-blood Collection / Unknown 10/23/2024 9:15 PM EST 10/23/2024 9:26 PM EST us Cora Noland DO LAB URINE ORDERABLES Raquel l Result [facility] [address] [place] [address], [place] [phone] * Ibrahim urine culture tube (10/23/2024 9:15 PM EST) Extra Tube Hold for add-ons. 10/23/2024 11:01 PM EST [facility] Comment:Auto resulted. Urine Urine specimen obtained by clean catch procedure / Unknown Non-blood Collection / Unknown 10/23/2024 9:15 PM EST 10/23/2024 9:26 PM EST us Cora Noland DO LAB URINE ORDERABLES Raquel l Result [facility] [address] [place] [address], [place] [phone] * CT Abdomen Pelvis w Contrast (10/23/2024 [...] by: Christopher Gutierrez MD on 10/23/2024 20:14:57 Cora Noland DO IMG CT PROCEDURES Final R esult * [id number], RSV, Influenza A and B qualitative RT-PCR (10/23/2024 6:28 PM EST) Influenza A PCR Not Detected Not Detected LAB MICROBIOLOGY METHOD 10/23/2024 8:00 PM EST [facility] Influenza B PCR Not Detected Not Detected LAB MICROBIOLOGY METHOD 10/23/2024 8:00 PM EST [facility] RSV PCR Not Detected Not Detected LAB MICROBIOLOGY METHOD 10/23/2024 8:00 PM EST [facility] SARS COV-2 Not Detected Not Detected LAB MICROBIOLOGY METHOD 10/23/2024 8:00 PM [facility] Swab Nasopharyngeal structure / Unknown Non-blood Collection / Unknown 10/23/2024 6:28 PM EST 10/23/2024 7:09 PM EST [facility] - 10/23/2024 8:00 PM EST Disclaimer: ??Testing was performed using the [employer] GeneXpert Xpress SARS-CoV-2 _Flu_RSV PLUS PCR assay. [...] for Healthcare providers can be found at https://www.fda.gov/media/683844/download. ?? Fact sheet for Healthcare patients can be found at https://www.fda.gov/media/920426/download. Cora Noland DO LAB MICROBIOLOGY - GENERA L ORDERABLES Final Result Performing Organization Address [facility]/ZIP Co de Phone Number [facility] [address] [place] [address], * Troponin I high sensitivity (10/23/2024 3:07 PM EST) Only the most recent of2 resultswithin the time period is included. [facility] High Sensitivity Troponin I 33 <=54 ng/L LAB CHEMISTRY METHOD 10/23/2024 5:17 PM EST [facility] Blood Venous blood specimen / Unknown Venipuncture / Unknown 10/23/2024 3:07 PM EST 10/23/2024 3:38 PM EST Narrative [facility] - 10/23/2024 5:17 PM EST High levels of biotin in samples may falsely decrease hsTroponin values. ??Use caution when interpreting hsTroponin results in patients taking biotin who exhibit renal impairment (eGFR <60) or in patients taking more than 20 mg/day of biotin. Judah Lala MD LAB BLOOD ORDERABLES Final Result Performing Organization Address [facility]/ZIP Co de Phone Number [facility] [address] [place] [address], [place] [phone] * ECG 12 lead (10/23/2024 12:29 PM EST) Ventricular Rate ECG 75 BPM GEMUSE Atrial Rate 75 BPM GEMUSE P-R Interval 116 ms GEMUSE QRS Duration 76 ms GEMUSE Q-T Interval 380 ms GEMUSE QTc 424 ms GEMUSE P Wave Raymond 38 degrees GEMUSE R Raymond 5 degrees GEMUSE T Raymond 7 degrees GEMUSE ECG Interpretation Normal sinus rhythm Normal ECG No previous ECGs available Confirmed by DAVID SIERRA ([id number]) on 10/26/2024 8:48:41 AM GEMUSE 10/23/2024 12:2 9 PM EST 10/26/2024 8:48 AM EST Cora Noland DO ECG ORDERABLES Final Res ult GEM[facility] * Hepatitis C Screening (04/19/2023) Hepatitis C Screening abstracted Historical Provider HEALTH MAINTENANCE Final Result * Pap Smear (11/22/2022) Pap smear normal,abs tracted Historical Provider HEALTH MAINTENANCE Final Result * Colonoscopy (10/26/2021) Pathologist [facility] Colonoscopy normal,abs tracted Anatomical Region Laterality Modality Other Historical Provider HEALTH MAINTENANCE Final Result from Last 3 Months or Most Recently Relevant to Health Maintenance Insurance [facility] Advance Directives * Full Code - [...] currently active code status orders. Care Teams Yard Cleaner Relationship Specialty Start Date End Date Jose Rafael George MD [address] [place] [id number] PCP - General Internal Medicine 10/23/24
--- NOTE | 2025-01-08 08:41 | ECG_ITS ---
Test Reason : E66.1 Blood Pressure : */* mmHG Vent. Rate : 75 BPM Atrial Rate : 75 BPM P-R Int : 136 ms QRS Dur : 76 ms QT Int : 374 ms P-R-T Axes : 50 5 30 degrees QTcB Int : 417 ms Normal sinus rhythm Low voltage QRS Borderline ECG No previous ECGs available Referred By: Maurice Coleman Electronically Signed By: Herrera Sierra
[2025-01-08 09:07] LABS: MANUAL DIFF FLAG NO
[2025-01-08 09:31] LABS: Basophils Percent Auto 0.4 % (0-2); Eosinophils Absolute Auto 0.2 X10*3/uL (0.0-0.4); Eosinophils Percent Auto 2.2 % (0-4); Hematocrit 38.9 % (37.0-47.0); Imm Gran Abs Auto 0.02 X10*3/uL (0.00-0.03); Imm Gran Pct Auto 0.3 % (0.0-0.4); Lymphocytes Absolute Auto 1.3 X10*3/uL (1.2-4.9); Lymphocytes Percent Auto 17.4 % (20-40); Mean Corpuscular HGB Conc 33.4 g/dl (31.0-35.0); Mean Corpuscular Volume 86.6 fL (80.0-98.0); Mean Platelet Volume 9.9 fL (9.4-12.3); Monocytes Absolute Auto 0.4 X10*3/uL (0.1-1.2); Monocytes Percent Auto 5.8 % (2-11); Neutrophils Absolute Auto 5.7 x10*3/uL (2.0-8.3); Neutrophils Percent Auto 73.9 % (45-73); Platelet Count 292 X10*3/uL (160-400); Red Blood Count 4.49 X10*6/uL (4.20-5.50); Red Cell Distribution Width 12.3 % (11.0-16.0); White Blood Count 7.7 X10*3/uL (4.8-10.8)
[2025-01-08 09:36] LABS: Estimated Average Glucose 111 mg/dL; Hemoglobin A1C 127.5263 umol/L; Hemoglobin A1c % 5.5 % (<6.0); Total Hemoglobin (HGBA1C) 3448.5369 umol/L
[2025-01-08 10:16] LABS: Alanine Aminotransferase 35 U/L (0-31); Albumin Level 4.5 g/dL (3.5-5.0); Alkaline Phosphatase 98 U/L (39-117); Anion Gap 13 (12-20); Aspartate Amino Transferase 22 U/L (5-31); Bilirubin Total 0.6 mg/dL (0.0-1.0); Blood Urea Nitrogen 26 mg/dL (9-16); C Reactive Protein 0.86 mg/dL (< or = 0.50); Calcium 9.8 mg/dL (8.4-10.2); Carbon Dioxide 25 mmol/L (22-29); Chloride 106 mmol/L (96-108); Cholesterol 193 mg/dL (<200); Estimated Glomerular Filt Rate > 60; Glucose Random 100 mg/dL (60-115); HDL Cholesterol 60 mg/dL (>40); Iron 92 mcg/dL (30-160); LDL Cholesterol Calculated 115 mg/dL (<100); Percent Iron Saturation 30 % (15-50); Potassium 4.2 mmol/L (3.3-5.1); Sodium 140 mmol/L (135-145); Total Iron Binding Capacity 307 mcg/dL (228-428); Total Protein 7.7 g/dL (6.5-8.0); Triglycerides 94 mg/dL (<150); Unsaturated Iron Binding 215 ug/dL
[2025-01-08 10:42] LABS: Folate 9.1 ng/mL (> or = 4.0); Vitamin B12 401 pg/mL (200-900)
[2025-01-08 10:46] LABS: Ferritin 61 ng/mL (10-250); Insulin 13 uU/mL (2-29); TSH reflex Free T4 1.19 uIU/mL (0.32-4.0); Vitamin D 25-OH Total 25.7 ng/mL (>30)
[2025-01-11 14:59] LABS: Vitamin A 44 mcg/dL (38-98)
[2025-01-12 01:34] LABS: Zinc 62 mcg/dL (60-130)
[2025-01-13 06:23] LABS: Vitamin B1 12 nmol/L (8-30)
== END 2025-01-08 08:11 | disposition home or self-care (01) ==
LOC: HO.XRAY 08:10
PROVIDERS: PCP Internal Medicine; Visit Provider Surgery
DX: E66.01 Morbid (severe) obesity due to excess calories (principal); K21.9 Gastro-esophageal reflux disease without esophagitis; G47.30 Sleep apnea, unspecified; Z13.1 Encounter for screening for diabetes mellitus
CPT/HCPCS: 36415; 71046; 80053; 80061; 82306; 82607; 82728; 82746; 83036; 83525; 83540; 84425; 84443; 84590; 84630; 85025; 86140; 93005

== ENCOUNTER → 2025-01-08 08:19 | Outpatient (BNV) | payer OTHER, SELFPAY | PROVIDERS: PCP Internal Medicine; Visit Provider Radiology Diagnostic Radiology | DX: E66.01 Morbid (severe) obesity due to excess calories (principal) | CPT/HCPCS: 71046 ==

== ENCOUNTER → 2025-01-08 08:41 | Outpatient (BNV) | payer OTHER, SELFPAY | PROVIDERS: PCP Internal Medicine; Visit Provider Internal Medicine Cardiovascular Disease | DX: E66.1 Drug-induced obesity (principal) | CPT/HCPCS: 93010 ==

== ENCOUNTER 2025-01-26 12:10 | Outpatient (AMB) | payer OTHER, SELFPAY ==
--- NOTE | 2025-01-26 12:05 | MHC.WMTHER ---
Intake Intake Visit Reasons: TV BH Intake Allergies acetaminophen [From Percocet] Adverse Reaction (Intermediate, Verified 12/31/24 12:16) Nausea and Vomiting oxycodone [From Percocet] Adverse Reaction (Intermediate, Verified 12/31/24 12:16) Nausea and Vomiting propoxyphene [From Darvocet-N] Adverse Reaction (Intermediate, Verified 12/31/24 12:16) Nausea and Vomiting PFSH Medical History (Updated 12/31/24 @ 12:18 by Maurice Coleman MD) GERD (gastroesophageal reflux disease) DJD (degenerative joint disease) Sleep apnea Morbid obesity Surgical History (Updated 12/22/24 @ 15:46 by DANIEL Puri) History of esophagogastroduodenoscopy (EGD) H/O colonoscopy Hx of section Family History (Updated 12/22/24 @ 15:48 by DANIEL Puri) Paternal Grandmother Pancreatic cancer Maternal Grandfather Pancreatic cancer Sister Cervical cancer Sister Breast cancer Mother Breast cancer Social History (Updated 12/22/24 @ 15:49 by DANIEL Puri) Alcohol intake: current Alcohol intake frequency: holidays/special occasions only Patient Tobacco Use Status: Never used Tobacco Behavioral Health Assessment Weight Management Therapy Therapy Notes Details The patient is a 64-year-old female who presents for ainitial visit to start behavioral health assessment as part of the preoperative evaluation for the surgical weight loss program. She reports being referred by a family member and expresses a desire to become healthier, more active, and overall happier with her life. Presenting Concerns Referral Source WMP- Provider Reason for referral Completion of behavioral health assessment as part of process for weight-loss surgery. Precipitating Event Obesity. Living Situation Current Living Situation Own At risk of losing current housing? No Satisfied with current living situation? Yes Comments PT lives alone, but her youngest resides with her when off college. Food/Weight/Diet Expectations of change PT started the program on 12/31/2024 at 275Lbs, and she would like to at least reach 180Lbs. Her most recent weight was 264 lbs as of 01/22/2025. PT is implementing the following: Current meal plan: a combination of shakes, bars, and 1 meal. Exercise plan: stationary bike. Scale: yes. Communication with provider: yes, on . History/Relationship with food She used to eat pasta a lot because it was easy and affordable. felt always hungry PT reports she likes eating, and at some point, she felt she needed food to survive. When her parent , she started eating unhealthy options, and throughout her life, she has gotten used to having easy/quick meals. when his kids were youngest, she was always on the go, grabbing easy and unhealthy. Example of meals before starting the program: Breakfast: Lunch: Dinner: Snacks: Drinks/Liquids: History/Relationship with weight Patient reports she was never a thin child but maintained an average weight during childhood. She began gaining weight with each . She experienced significant weight gain during the COVID-19 pandemic. The last time she weighed under 200 lbs was around 1985. Over the past 10 years, her weight has fluctuated, with a low of 230 lbs and a high of 275 lbs. History/Relationship with dieting [facility] on and off, [employer] (lost 25 lbs, was unable to afford it, and re-gained all the weight), used an jose miguel for calorie tracking, and diets. In 2022 she started Ozempic for 1 month at the lowest dosage, but didn't lose weight. Stopped as insurance no longer covered. Binge Eating Do you frequently eat large amounts of food in short periods of time, not feeling physically hungry? No Do you feel out of control when you eat a large amount of food in a short period of time? No Do you eat large amounts of food rapidly and typically alone? No Night Eating Do you wake up at least once during the night to eat? No If you wake up in the night, do you find that it is necessary to eat something in order to fall back asleep? No Do you have little or no appetite in the morning and feel very hungry in the evening, often overeating between dinner and when you go to bed? No Social History Family history and relationship PT is . PT has 3 adult children. Her youngest is finishing college and still lives with her when off school. Parents are , she had 3 siblings, 2 sisters are , her oldest brother is alive, and they're close. 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 Developmental history and status None reported. Currently [facility]. Social support [id number], children, some co-workers and friends. 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 Cultural/Ethnic information . Legal Involvement and History Current or historical involvement with the legal system? None reported. Education Highest grade completed HS. Some college courses. Currently enrolled in educational program? No Interested in further educational program? No Educational Interests/Skills she was in a [employer] for several years. 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 ) Wants help to find employment? No Meaningful activities Family activities, bowling. Financial Situation Describe current financial situation Comfortable and Occasional struggle Financial assistance? None Service Service? No Mental Health and Addiction Treatment Psychiatric history Attended therapy for a while. Questionnaires PHQ-9 Over the last 2 weeks, how often have you been bothered by any of the following problems? 1. Little interest or pleasure in doing things: not at all 2. Feeling down, depressed, or hopeless: not at all 3. Trouble falling or staying asleep, or sleeping too much: several days 4. Feeling tired or having little energy: several days 5. Poor appetite or overeating: nearly every day 6. Feeling bad about yourself - or that you are a failure or have let yourself or your family down: not at all 7. Trouble concentrating on things, such as reading the newspaper or watching television: not at all 8. Moving or speaking so slowly that other people could have noticed. Or the opposite - being so fidgety or restless that you have been moving around a lot more than usual: not at all 9. Thoughts that you would be better off or of hurting yourself in some way: not at all Total score: 5 Depression Screening Interpretation: Positive (from new PT pack, completed on 12/22/24. a new one will be administered at next encounter. ) Depression Screening Done: Yes Source: Developed by Roxie Muñoz[employer]. [employer], Wei Huizar and colleagues, with an educational perla from [employer]. Binge Eating Scale Group 1 A. I don't feel self-conscious about my wt. or body size when I'm with others. B. I feel concerned about how I look to others, but it normally does not make me fell disappointed with myself C. I do get self-conscious about my appearance and wt. which makes me feel disappointed in myself. D. I feel very self-conscious about my wt. and frequently I feel intense shame and disgust for myself. I try to avoid social contacts because of my self-consciousness. Response Group 1: C Group 2 A. I don't have any difficulty eating slowly in the proper manner. B. Although I seem to gobble down foods, I don't end up feeling stuffed because of eating to much. C. At times, I tend to eat quickly and then, I feel uncomfortably full afterwards. D. I have the habit of bolting down my food, without really chewing it. When this happens I usually feel uncomfortably stuffed because I've eaten to much. Response Group 2: D Group 3 A. I feel capable to control my eating urges when I want to. B. I feel like I have failed to control my eating more than the average person. C. I feel utterly helpless when it comes to feeling in control of my eating urges. D. Because I feel so helpless about controlling my eating I have become very desperate about trying to get control. Response Group 3: C Group 4 A. I don't have the habit of eating when I'm bored. B. I sometimes eat when I'm bored, but often I'm able to get busy and get my mind off food. C. I have a regular habit of eating when I'm bored, but occasionally, I can use some other activity to get my mind off eating. D. I have a strong habit of eating when I'm bored. Nothing seems to help me breath the habit. Response Group 4: D Group 5 A. I'm usually physically hungry when I eat something. B. Occasionally, I eat something on impulse even though I really am not hungry. C. I have the regular habit of eating foods, that I might not really enjoy, to satisfy a hungry feeling even though physically, I don't need the food. D. Although I'm not physically hungry, I get a hungry feeling in my mouth that only seems to be satisfied when I eat a food, like sandwich, that fills my mouth. Sometimes, when I eat the food to satisfy my mouth hunger, I then spit the food out so I won't gain weight. Response Group 5: C Group 6 A. I don't feel any guilt or self-hate after I overeat. B. After I overeat, occasionally I feel guilt or self-hate. C. Almost all the time I experience strong guilt or self-hate after I overeat. Response Group 6: C Group 7 A. I don't lose total control of my eating when dieting even after periods when I overeat. B. Sometimes when I eat a forbidden food on a diet, I feel like I blew it and eat even more. C. Frequently, I have the habit of saying to myself, I've blown it now, why not go all the way, when I overeat on a diet. When that happens I eat more. D. I have a regular habit of starting a strict diets for myself but I break the diets by going on an eating binge. My life seems to be either a feast or famine. Response Group 7: D Group 8 A. I rarely eat so much food that I feel uncomfortably stuffed afterwards. B. Usually about once a month, I each such a quantity of food, I end up feeling very stuffed. C. I have regular periods during the month when I eat large amounts of food, either at mealtime or at snacks. D. I eat so much food that I regularly feel quite uncomfortable after eating and sometimes a bit nauseous. Response Group 8: C Group 9 A. My level of calorie intake does not go up very high or go down very low on a regular basis. B. Sometimes after I overeat, I will try to reduce my caloric intake to almost nothing to compensate for the excess calories I've eaten. C. I have a regular habit of overeating during the night. It seems that my routine is not to be hungry in the morning but overeat in the evening. D. In my adult years, I have had week-long periods where I practically starve myself. This follows periods when I overeat. It seems I live a life of either feast or famine. Response Group 9: C Group 10 A. I usually am able to stop eating when I want to. I know when enough is enough. B. Every so often, I experience a compulsion to eat which I can't seem to control. C. Frequently, I experience strong urges to eat which I seem unable to control, but at other times I can control my eating urges. D. I feel incapable of controlling urges to eat. I have a fear of not being able to stop eating voluntarily. Response Group 10: D Group 11 A. I don't have any problem stopping eating when I feel full. B. I usually can stop eating when I feel full but occasionally overeat leaving me feeling uncomfortably stuffed. C. I have a problem stopping eating once I start and usually I feel uncomfortably stuffed after I eat a meal. D. Because I have a problem not being able to stop eating when I want, I sometimes have to induce vomiting to relieve my stuffed feeling. Response Group 11: B Group 12 A. I seem to eat just as much when I'm with others, Family social gatherings as when I'm by myself. B. Sometimes, when I'm with other persons, I don't eat as much as I want to eat because I'm self-conscious about my eating. C. Frequently, I eat only a small amount of food when others are present, because I'm very embarrassed about my eating. D. I feel so ashamed about overeating that I pick times to overeat when I know no one will see me. I feel like a closet eater. Response Group 12: A Group 13 A. I eat three meals a day with only an occasional between meal snack. B. I eat 3 meals a day, but I also normally snack between meals. C. When I am snacking heavily, I get in the habit of skipping regular meals. D. There are regular periods when I seem to be continually eating, with no planned meals. Response Group 13: B Group 14 A. I don't think much about trying to control unwanted eating urges. B. At least some of the time, I feel my thoughts are pre-occupied with trying to control my eating urges. C. I feel that frequently I spend much time thinking about how much I ate or about trying not to eat anymore. D. It seems to me that most of my waking hours are pre-occupied by thoughts about eating or not eating. I feel like I'm constantly struggling not to eat. Response Group 14: D Group 15 A. I don't think about food a great deal. B. I have strong craving for food but they last only for brief periods of time. C. I have days when I can't seem to think about anything else but food. D. Most of my days seem to be pre-occupied with thoughts about food. I feel like I live to eat. Response Group 15: D Group 16 A. I usually know whether or not I'm physically hungry. I take the right portion of food to satisfy me. B. Occasionally, I feel uncertain about knowing whether or not I'm physically hungry. A these times it's hard to know how much food I should take to satisfy me. C. Even though I might know how many calories I should eat, I don't have any idea what is a normal amount of food for me. Response Group 16: C Binge Eating Score: 34 Score less than 17 Minimal Risk Score between 18-26 Moderate Risk Score between 27-46 High Risk Assessment & Plan Assessment & Plan (1) Adjustment disorder: Code(s): F43.20 - Adjustment disorder, unspecified (2) Pre-bariatric surgery psychological evaluation: Code(s): Z71.89 - Other specified counseling Plan Patient has not been cleared at this time, as the assessment is still in progress. She is scheduled to return in two weeks to continue the evaluation. Next Appointment: 02/10/2025 at 12:00 PM via telehealth. (PV) Telehealth Telehealth [facility] Location of [facility] rendering services: other Location of patient: address on file Patient Identification confirmed using: Name, : Yes Telehealth method: voice only Patient verbally consented to treatment: Yes Patient verbally consented to billing insurance company: Yes Patient informed of any privacy concerns related to visit: Yes Minutes spent on Phone/Video with Pt.: 50 Coding Level of Care Code New Pt Tele Psy Diag Eval ([id number]) Patient Type New Diagnoses Adjustment disorder F43.20 Pre-bariatric surgery psychological evaluation Z71.89 Time Spent (min) 50
--- OUTSIDE RECORDS SUMMARY | 2025-01-26 12:40 | XMS_ITS | Clinical Summary ---
Author Organization [place] [id number] Hector villegas [facility] Building Address [facility] [address] [place], [place] Phone Care Team Providers Care Extension Course Counselor Name Role Phone Jose Rafael George MD Primary Care Provider [phone] Allergies Active Allergy Reactions Criticality Noted Date Comments Oxycodone Nausea Only 10/23/2024 Medications pantoprazole (PROTONIX) 40 mg EC tablet TAKE 1 TABLET BY MOUTH EVERY DAY 90 tablet 1 5 Active fluticasone propionate (FLONASE) 50 mcg/actuation nasal spray Administer 1 spray into each nostril 1 (one) time each day. 2 Sprays by Each Nare route daily for 360 days. - Each Nare 15.8 mL 5 Active fluticasone propionate (FLONASE) 50 mcg/actuation nasal spray 2 Sprays by Each Nare route daily for 360 days. - Each Nare 025 Discontinu ed(Reorder ) semaglutide (Wegovy) 0.25 mg/0.5 mL injection penIndications: Class 3 severe obesity due to excess calories without serious comorbidity with body mass index (BMI) of 45.0 to 49.9 in adult ([facility] V24, [facility] V28) Inject 0.25 mg under the skin every 7 (seven) days. 2 mL 5 025 Discontinu ed(Discont inued by another clinician) Active Problems Problem Noted Date Diagnosed Date Nausea and vomiting 10/23/2024 Current moderate episode of major depressive disorder ([facility] V24, [facility] V28) 08/10/2023 GERD (gastroesophageal reflux disease) 2 Hypertension 07/07/2022 Obesity 07/07/2022 Osteoarthritis 07/07/2022 Encounters Date Type Department Care Team Description 01/13/2025 3:30 PM EDT Office Visit Internal [facility] - [facility] [address] [place] [address] Jose Rafael George MD Class 3 severe obesity due to excess calories without serious comorbidity with body mass index (BMI) of 45.0 to 49.9 in adult ([facility] V24, [facility] V28) (Primary Dx); Gastroesophageal reflux disease without esophagitis 11/19/2024 Telephone Pediatrics - [facility] [address] [place] [address] Jose Rafael George MD prior auth 11/05/2024 9:45 AM EST Office Visit [facility] [address] [facility] [place] [address] Jose Raafel George MD Follow-up exam (Primary Dx); Class 3 severe obesity due to excess calories without serious comorbidity with body mass index (BMI) of 45.0 to 49.9 in adult ([facility] V24, [facility] V28) 11/05/2024 Telephone [facility] [address] [facility] [place] [address] Jose Rafael George MD Prior Authorization from Last 3 Months Immunizations Name Administration Dates Next Due Influenza, Unspecified 06/11/2023,06/15/2022 Medical History Medical History Date Comments Hypertension 07/07/2022 DX:Hypertension Obesity 07/07/2022 DX:Obesity GERD (gastroesophageal reflux disease) 2 DX:GERD (gastroesophageal reflux disease) Osteoarthritis 07/07/2022 DX:Osteoarthriti s Social History Tobacco Use Types Packs/Day Years Used Date Smoking Tobacco: Never Smokeless Tobacco: Never Tobacco Cessation:Counseling Given: Not Answered Alcohol Use Standard Drinks/Week Comments Yes 0 (1 standard drink = 0.6 oz pur e alcohol) Housing Instability Answer Date Recorde d Are you worried that in the next 2 months you may not have stable housing? No 01/12/2025 Food Access & Nutrition Answer Date Rec orded Do you have access to a vari ety of food including fruits and vegetables? Yes 01/12/2025 Health Literacy Answer Date Recorded How often do you need to hav e someone help you when you read instructions, pamphlets, or other written material from your doctor or pharmacy? Never 01/12/2025 Caregiver: How often do you need to have someone help you when you read instructions, pamphlets, or other written material from your doctor or pharmacy? Not on file 01/12/2025 Financial Risk Answer Date Recorded How hard is it for you to pa y for the very basics like food, housing, medical care, and air conditioning / heating? Somewhat hard 01/12/2025 Transportation Answer Date Recorded Has the lack of transportati on kept you from meetings, work, or from getting things needed for daily living? No Has the lack of transportati on kept you from medical appointments or from getting medications? No 01/12/2025 Social Isolation Answer Date Recorded How often do you feel lonely or isolated from th ose around you? Never 01/12/2025 Food Risk Answer Date Recorded Within the past 12 months we worried whether our food would run out before we got money to buy more. Never true 01/12/2025 Within the past 12 months th e food we bought just didn't last and we didn't have money to get more. Never true 01/12/2025 Dependent Care Answer Date Recorded Do you need help finding or paying for care for your loved ones. For example, child psychometrist or elderly care for an older adult? No 01/12/2025 Education Answer Date Recorded Do you think completing more education or training, like finishing a GED, going to college, or learning a trade, would be helpful for you? No 01/12/2025 Employment and Income Answer Date Recor ded During the last four weeks, have you been actively looking for work? No 01/12/2025 Living Situation Answer Date Recorded What is your living situation? 0 01/12/2025 Comments No Sex and Gender Information Value Date Recorded Sex Assigned at Female 10/23/2024 5:35 PM EST Legal Sex Female 5:11 PM EST Gender Identity Female 10/23/2024 5:35 PM EST Sexual Orientation Straight 10/23/2024 5: 35 PM EST Obstetrics History Last Filed Vital Signs Vital Sign Reading Time Taken Comments Blood Pressure 104/78 01/13/2025 3:39 PM EDT Pulse 90 01/13/2025 3:39 PM EDT Temperature 36.5 ??C (97.7 ??F) 10/24/2024 6:22 AM ES T Respiratory Rate 16 10/24/2024 12:05 PM EST Oxygen Saturation 96% 10/24/2024 12:05 PM EST Inhaled Oxygen Concentration - - Weight 123 kg (270 lb 8 oz) 01/13/2025 3:39 PM E DT Height 162.6 cm (5' 4 ) 01/13/2025 3:39 PM EDT Body Mass Index 46.43 01/13/2025 3:39 PM EDT Plan of Treatment Upcoming Encounters Date Type Department Care Team (Late st Contact Info) Description 07/21/2025 4:30 PM EST Office Visit Internal Medicine - [facility] [address] [place], [place] [phone] Jose Rafael George MD [address] [place] [address] Health Maintenance Due Date Last Done Comments Breast Cancer Screening 1961 Pneumococcal Vaccine: 50+ Years (1 of 1 - PCV) 2011 Zoster Vaccines (1 of 2) 2011 RSV Immunization Adult Patients (1 - Risk 60-74 years 1-dose series) 2021 HIV Screening 08/20/2022 COVID-19 Vaccine ( season) 2024 09/08/2021, 01/20/2021, 12/23/2020 Hypertension/CHF/CAD Annual BMP Blood Test 10/24/2025 10/24/2024, 10/23/2024, 03/21/2024, Additional history exists Cervical Cancer Screening: Pap Smear 11/22/2025 11/22/2022 Depression Screening 01/12/2026 01/12/2025 Social Influencers of Health Screening 01/12/2026 01/12/2025 Cholesterol Screening (Lipid Panel) 10/24/2029 10/24/2024, 03/21/2024, [...] Date/Time Associated Diagnosis Comments EXTERNAL CLINICAL LAB 01/13/2025 EXTERNAL CLINICAL LAB 01/12/2025 EXTERNAL CLINICAL LAB 01/09/2025 EXTERNAL XRAY REPORT 01/09/2025 BASIC METABOLIC PANEL Routine 10/24/2024 6:53 AM EST LIPID PANEL WITH REFLEX TO DIRECT LDL Add-On 10/24/2024 6:53 AM EST HEPATITIS C SCREENING Routine 04/19/2023 PAP SMEAR Routine 11/22/2022 COLONOSCOPY Routine 10/26/2021 from Last 3 Months or Most Recently Relevant to Health Maintenance Results * External clinical lab (01/13/2025) Only the most recent of3 resultswithin the time period is included. Provider [facility] LAB BLOOD ORDERABLES Fin al Result * External Xray Report (01/09/2025) Anatomical Region Laterality Modality Radiographic Amy ging us Provider [facility] IMG XR PROCEDURES Final Result * Lipid panel with reflex to direct LDL (10/24/2024 6:53 AM EST) Cholesterol 158 0 - 200 mg/dL LAB CHEMISTRY METHOD 10/24/2024 7:56 AM [facility] Triglycerides 69 0 - 150 mg/dL LAB CHEMISTRY METHOD 10/24/2024 7:56 AM [facility] HDL 69 >=40 mg/dL LAB CHEMISTRY METHOD 10/24/2024 7:56 AM [facility] LDL Calculated 75 0 - 100 mg/dL LAB CHEMISTRY METHOD 10/24/2024 7:56 AM [facility] VLDL Cholesterol Antolin 13.8 mg/dL LAB CHEMISTRY METHOD 10/24/2024 7:56 AM [facility] Non HDL Chol. (LDL+VLDL) 89 <145 mg/dL LAB CHEMISTRY METHOD 10/24/2024 7:56 AM [facility] Chol/HDL Ratio 2.3 0.0 - 4.4 LAB CHEMISTRY METHOD 10/24/2024 7:56 AM [facility] Blood Venous blood specimen / Unknown Venipuncture / Unknown 10/24/2024 6:53 AM EST 10/24/2024 7:17 AM EST Julius Crespo MD LAB BLOOD ORDERABLES Final Res ult [facility] [address] [place] [address], * (ABNORMAL) Basic metabolic panel (10/24/2024 6:53 AM EST) Sodium 141 133 - 145 mmol/L LAB CHEMISTRY METHOD 10/24/2024 7:56 AM EST [facility] Potassium 3.7 3.5 - 5.5 mmol/L LAB CHEMISTRY METHOD 10/24/2024 7:56 AM [facility] Chloride 111(H) 96 - 110 mmol/L LAB CHEMISTRY METHOD 10/24/2024 7:56 AM [facility] CO2 26 21 - 32 mmol/L LAB CHEMISTRY METHOD 10/24/2024 7:56 AM EST [facility] Anion Gap 4 3 - 11 LAB CHEMISTRY METHOD 10/24/2024 7:56 AM [facility] Glucose 104(H) 70 - 100 mg/dL LAB CHEMISTRY METHOD 10/24/2024 7:56 AM [facility] BUN 10 5 - 25 mg/dL LAB CHEMISTRY METHOD 10/24/2024 7:56 AM [facility] Creatinine 0.71 0.50 - 1.10 mg/dL LAB CHEMISTRY METHOD 10/24/2024 7:56 AM [facility] eGFR 96 >=60 mL/min/1. 73m2 LAB CHEMISTRY METHOD 10/24/2024 7:56 AM [facility] Comment:Calculation based on the??Chronic Kidney Disease Epidemiology Collaboration (CKD-EPI) equation refit??without adjustment for race. BUN/Creatinine Ratio 14.1 LAB CHEMISTRY METHOD 10/24/2024 7:56 AM [facility] Calcium 9.3 8.5 - 10.5 mg/dL LAB CHEMISTRY METHOD 10/24/2024 7:56 AM EST [facility] Blood Venous blood specimen / Unknown Venipuncture / Unknown 10/24/2024 6:53 AM EST 10/24/2024 7:17 AM EST Julius Crespo MD LAB BLOOD ORDERABLES Final Res ult [facility] [address] [place] [address], * Hepatitis C Screening (04/19/2023) Hepatitis C Screening abstracted Historical Provider HEALTH MAINTENANCE Final Result * Pap Smear (11/22/2022) Pap smear normal,abs tracted Historical Provider HEALTH MAINTENANCE Final Result * Colonoscopy (10/26/2021) Colonoscopy normal,abs tracted Anatomical Region Laterality Modality Other Historical Provider HEALTH MAINTENANCE Final Result from Last 3 Months or Most Recently Relevant to Health Maintenance Insurance [facility] Advance Directives * Full Code - Default [...] currently active code status orders. Care Teams Extension Course Counselor Relationship Specialty Start Date End Date Jose Rafael George MD [address] [place] [id number] PCP - General Internal Medicine 10/23/24
== END 2025-01-26 13:02 | disposition home or self-care (01) ==
LOC: HO.HBST 12:10
PROVIDERS: PCP Internal Medicine; Visit Provider Counselor Mental Health
DX: F43.20 Adjustment disorder, unspecified (principal); Z71.89 Other specified counseling
CPT/HCPCS: 90791

== ENCOUNTER → 2025-01-26 12:10 | Outpatient (BNVA) | payer OTHER, SELFPAY | PROVIDERS: PCP Internal Medicine; Visit Provider Counselor Mental Health ==

== ENCOUNTER 2025-02-04 12:20 | Day surgery (SDC) | payer OTHER, SELFPAY ==
--- OUTSIDE RECORDS SUMMARY | 2025-01-12 08:06 | XMS_ITS | Clinical Summary ---
Author Organization [address] [facility] Building Address [address] [place] [address] Phone Care Team Providers Care Head Swamper Name Role Phone Jose Rafael George MD Primary Care Provider [phone] Allergies Active Allergy Reactions Criticality Noted Date [...] (BMI) of 45.0 to 49.9 in adult ([facility] V24, [facility] V28) Inject 0.25 mg under the skin every 7 (seven) days. 2 mL 11/05/2024 Active Active Problems Problem Noted Date Diagnosed Date Nausea and vomiting 10/23/2024 Current moderate episode of major depressive disorder ([facility] V24, [facility] V28) 08/10/2023 GERD (gastroesophageal reflux disease) Hypertension 07/07/2022 Obesity 07/07/2022 Osteoarthritis 07/07/2022 Encounters Date Type Department Care Team Description 11/19/2024 Telephone Pediatrics - [address] [phone] Jose Rafael George MD prior auth 11/05/2024 9:45 AM EST Office Visit [facility] [address] [place], [place] [phone] Jose Rafael George MD Follow-up exam (Primary Dx); Class 3 severe obesity due to excess calories without serious comorbidity with body mass index (BMI) of 45.0 to 49.9 in adult ([facility] V24, [facility] V28) 11/05/2024 Telephone [facility] [address] [place], [place] [phone] Jose Rafael George MD Prior Authorization 10/23/2024 5:26 PM EST - 10/24/2024 2:13 PM EST Hospital Encounter [facility] [address] [place] [id number] Cora Noland DO Ishtiaq, Rizwan, MD Santoyo-Pach [...] PM EDT [facility] [address] [place] [address] Jose Rafael George MD [address] [place] [address] Health Maintenance Due Date Last Done Comments [...] Procedure Name Priority Date/Time Associated Diagnosis Comments EXTERNAL CLINICAL LAB 01/09/2025 EXTERNAL XRAY REPORT 01/09/2025 ECG ANNOTATED 10/27/2024 RESPIRATORY VIRUS PANEL MOLECULAR [...] W CONTRAST STAT 10/23/2024 7:43 PM EST [id number], RSV, FLU A AND B QUALITATIVE RT-PCR, [...] Recently Relevant to Health Maintenance Results * External Xray Report (01/09/2025) Anatomical Region Laterality Modality Radiographic Amy ging us Provider [facility] IMG XR PROCEDURES Final Result * External clinical lab (01/09/2025) us Provider [facility] LAB BLOOD ORDERABLES Fin al Result * ECG-Annotated (10/27/2024) us Provider [facility] MD ECG ORDERABLES Final Result * Respiratory virus panel molecular study (10/24/2024 9:31 AM EST) Adenovirus Detection by PCR Not Detected Not Detected LAB MICROBIOLOGY METHOD 10/24/2024 10:44 AM [facility] Influenza A PCR Not Detected Not Detected LAB MICROBIOLOGY METHOD 10/24/2024 10:44 AM [facility] Influenza B PCR Not Detected Not Detected LAB MICROBIOLOGY METHOD 10/24/2024 10:44 AM [facility] Coronavirus 229E Not Detected Not Detected LAB MICROBIOLOGY METHOD 10/24/2024 10:44 AM [facility] Coronavirus HKU1 Not Detected Not Detected LAB MICROBIOLOGY METHOD 10/24/2024 10:44 AM [facility] Coronavirus OC43 Not Detected Not Detected LAB MICROBIOLOGY METHOD 10/24/2024 10:44 AM [facility] Coronavirus NL63 Not Detected Not Detected LAB MICROBIOLOGY METHOD 10/24/2024 10:44 AM [facility] Parainfluenza Virus 1 Not Detected Not Detected LAB MICROBIOLOGY METHOD 10/24/2024 10:44 AM [facility] Parainfluenza Virus 2 Not Detected Not Detected LAB MICROBIOLOGY METHOD 10/24/2024 10:44 AM [facility] Parainfluenza Virus 3 Not Detected Not Detected LAB MICROBIOLOGY METHOD 10/24/2024 10:44 AM [facility] Parainfluenza Virus 4 Not Detected Not Detected LAB MICROBIOLOGY METHOD 10/24/2024 10:44 AM [facility] RSV PCR Not Detected Not Detected LAB MICROBIOLOGY METHOD 10/24/2024 10:44 AM [facility] Human Metapneumovirus A and B Not Detected Not Detected LAB MICROBIOLOGY METHOD 10/24/2024 10:44 AM [facility] Rhinovirus/Entero virus Not Detected Not Detected LAB MICROBIOLOGY METHOD 10/24/2024 10:44 AM [facility] Bordetella pertussis Not Detected Not Detected LAB MICROBIOLOGY METHOD 10/24/2024 10:44 AM [facility] Bordetella parapertussis Not Detected Not Detected LAB MICROBIOLOGY METHOD 10/24/2024 10:44 AM [facility] Mycoplasma pneumo by PCR Not Detected Not Detected LAB MICROBIOLOGY METHOD 10/24/2024 10:44 AM [facility] Chlamydia pneumoniae Not Detected Not Detected LAB MICROBIOLOGY METHOD 10/24/2024 10:44 AM [facility] SARS COV-2 Not Detected Not Detected LAB MICROBIOLOGY METHOD 10/24/2024 10:44 AM [facility] Swab Both anterior nares / Unknown Non-blood Collection / Unknown 10/24/2024 9:31 AM EST 10/24/2024 9:44 AM EST [facility] - 10/24/2024 10:44 AM EST Testing was performed using the Topmission Respiratory Pathogen PCR Assay. All results must [...] MICROBIOLOGY - GENERAL ORD ERABLES Final Result [facility] LAB [address] [facility] [place] [address], [place] [phone] * CT Angio Head/Neck wo and/or w [...] Signed Date: 10/24/2024 13:02 ET Workstation ID: [id number] Transcribed By: Self Edit Transcribed Date: 10/24/2024 12:58 ET Narrative 10/24/2024 1:02 PM EST PROCEDURE: CTA HEAD AND NECK INDICATION: Dizziness, non-specific TECHNIQUE: CTA of the head and neck with intravenous contrast. Multiplanar reformats. The examination was performed utilizing dose reduction techniques.3-D or MIP images were produced with postprocessing on an independent computer workstation. 90cc Omnipaque 370 injected. Scan was analyzed using XAware Contact TrackR based computer aided triage software. Total DLP: [...] is patent. Vertebrobasilar system is patent. Proximal forest aide are patent. Major dural venous sinuses opacify [...] 90cc Omnipaque 370 injected. Scan wasanalyzed using Viz Contact AI based computer aided triage software. [...] is patent. Vertebrobasilar system is patent. Proximal forest aide are patent. Major dural venous sinuses opacify normally with contrast. Extracranial structures are unremarkable. Degenerative changes in thebones. IMPRESSION: NO ACUTE ABNORMALITY. -------- FINAL REPORT -------- Dictated By: Monique Henderson Dictated Date: 10/24/2024 12:58 ET Assigned Physician: Monique Henderson Reviewed and Electronically Signed By: Monique Henderson Signed Date: 10/24/2024 13:02 ET Workstation ID: [id number] Transcribed By: Self Edit Transcribed Date: 10/24/2024 12:58 ET us Cora Noland DO IMG CT PROCEDURES Final R esult * Thyroid stimulating hormone with reflex to free t4 and free t3 (10/24/2024 6:53 AM EST) TSH 0.82 0.40 - 4.00 mcIU/mL LAB CHEMISTRY METHOD 10/24/2024 8:04 AM EST [facility] Blood Venous blood specimen / Unknown Venipuncture / Unknown 10/24/2024 6:53 AM EST 10/24/2024 7:17 AM EST us Julius Crespo MD LAB BLOOD ORDERABLES Final Res ult Performing Organization Address City/[facility]/ZIP Co de Phone Number [facility] [address] [place] [address], [place] [phone] * Lipid panel with reflex to direct LDL (10/24/2024 6:53 AM EST) Cholesterol 158 0 - 200 mg/dL LAB CHEMISTRY METHOD 10/24/2024 7:56 AM EST [facility] Triglycerides 69 0 - 150 mg/dL LAB CHEMISTRY METHOD 10/24/2024 7:56 AM [facility] HDL 69 >=40 mg/dL LAB CHEMISTRY METHOD 10/24/2024 7:56 AM [facility] LDL Calculated 75 0 - 100 mg/dL LAB CHEMISTRY METHOD 10/24/2024 7:56 AM EST [facility] VLDL Cholesterol Antolin 13.8 mg/dL LAB CHEMISTRY METHOD 10/24/2024 7:56 AM [facility] Non HDL Chol. (LDL+VLDL) 89 <145 mg/dL LAB CHEMISTRY METHOD 10/24/2024 7:56 AM [facility] Chol/HDL Ratio 2.3 0.0 - 4.4 LAB CHEMISTRY METHOD 10/24/2024 7:56 AM [facility] Blood Venous blood specimen / Unknown Venipuncture / Unknown 10/24/2024 6:53 AM EST 10/24/2024 7:17 AM EST us Julius Crespo MD LAB BLOOD ORDERABLES Final Res ult Performing Organization Address City/[facility]/ZIP Co de Phone Number [facility] [address] [place] [address], [place] [phone] * (ABNORMAL) CBC auto differential (10/24/2024 6:53 AM EST) Only the most recent of2 resultswithin the time period is included. [facility] Signature WBC 9.1 4.8 - 10.8 K/mcL LAB HEMETOLOGY METHOD 10/24/2024 7:28 AM [facility] RBC 4.00 3.80 - 4.80 M/mcL LAB HEMETOLOGY METHOD 10/24/2024 7:28 AM [facility] Hemoglobin 11.3(L) 11.5 - 16.0 g/dL LAB HEMETOLOGY METHOD 10/24/2024 7:28 AM [facility] Hematocrit 34.5(L) 35.0 - 47.0 % LAB HEMETOLOGY METHOD 10/24/2024 7:28 AM [facility] MCV 86.5 79.0 - 98.0 FL LAB HEMETOLOGY METHOD 10/24/2024 7:28 AM [facility] MCH 28.3 27.0 - 32.0 pcg LAB HEMETOLOGY METHOD 10/24/2024 7:28 AM [facility] MCHC 32.8 32.0 - 37.0 g/dL LAB HEMETOLOGY METHOD 10/24/2024 7:28 AM [facility] RDW 12.3 11.0 - 15.0 % LAB HEMETOLOGY METHOD 10/24/2024 7:28 AM [facility] Platelets 292 130 - 400 K/mcL LAB HEMETOLOGY METHOD 10/24/2024 7:28 AM [facility] MPV 10.2 7.0 - 11.0 FL LAB HEMETOLOGY METHOD 10/24/2024 7:28 AM [facility] NRBC 0.0 <1.0 % LAB HEMETOLOGY METHOD 10/24/2024 7:28 AM [facility] NRBC Absolute 0.00 <0.10 K/mcL LAB HEMETOLOGY METHOD 10/24/2024 7:28 AM [facility] Neutrophils Relative 79.3 % LAB HEMETOLOGY METHOD 10/24/2024 7:28 AM [facility] Lymphocytes Relative 15.1 % LAB HEMETOLOGY METHOD 10/24/2024 7:28 AM [facility] Monocytes Relative 4.9 % LAB HEMETOLOGY METHOD 10/24/2024 7:28 AM [facility] Eosinophils Relative 0.2 % LAB HEMETOLOGY METHOD 10/24/2024 7:28 AM [facility] Basophils Relative 0.2 % LAB HEMETOLOGY METHOD 10/24/2024 7:28 AM [facility] Immature Granulocytes Relative 0.3 % LAB HEMETOLOGY METHOD 10/24/2024 7:28 AM [facility] Neutrophils Absolute 7.19(H) 1.50 - 7.00 K/mcL LAB HEMETOLOGY METHOD 10/24/2024 7:28 AM [facility] Lymphocytes Absolute 1.37 1.00 - 5.00 K/mcL LAB HEMETOLOGY METHOD 10/24/2024 7:28 AM [facility] Monocytes Absolute 0.44 0.20 - 1.00 K/mcL LAB HEMETOLOGY METHOD 10/24/2024 7:28 AM [facility] Eosinophils Absolute 0.02 0.00 - 0.50 K/mcL LAB HEMETOLOGY METHOD 10/24/2024 7:28 AM [facility] Basophils Absolute 0.02 0.00 - 0.20 K/mcL LAB HEMETOLOGY METHOD 10/24/2024 7:28 AM [facility] Immature Granulocytes Absolute 0.03 0.00 - 0.03 K/mcL LAB HEMETOLOGY METHOD 10/24/2024 7:28 AM [facility] Blood Venous blood specimen / Unknown Venipuncture / Unknown 10/24/2024 6:53 AM EST 10/24/2024 7:17 AM EST Juluis Crespo MD LAB BLOOD ORDERABLES Final Res ult [facility] [address] [place] [address], [place] [phone] * Magnesium (10/24/2024 6:53 AM EST) Only the most recent of2 resultswithin the time period is included. Magnesium 2.3 1.9 - 2.6 mg/dL LAB CHEMISTRY METHOD 10/24/2024 7:56 AM EST [facility] Blood Venous blood specimen / Unknown Venipuncture / Unknown 10/24/2024 6:53 AM EST 10/24/2024 7:17 AM EST Julius Crespo MD LAB BLOOD ORDERABLES Final Res ult Performing Organization Address [facility] Co de Phone Number [facility] [address] [place] [address], [place] [phone] * Hemoglobin A1c (10/24/2024 6:53 AM EST) Hemoglobin A1C 5.6 <6.5 % LAB CHEMISTRY METHOD 10/24/2024 11:24 AM EST [facility] Mean Bld Glu Estim. 114 mg/dL LAB CHEMISTRY METHOD 10/24/2024 11:24 AM EST [facility] Blood Venous blood specimen / Unknown Venipuncture / Unknown 10/24/2024 6:53 AM EST 10/24/2024 7:17 AM EST Julius Crespo MD LAB BLOOD ORDERABLES Final Res ult [facility] [address] [place] [address], [place] [phone] * (ABNORMAL) Basic metabolic panel (10/24/2024 6:53 AM EST) Only the most recent of2 resultswithin the time period is included. Sodium 141 133 - 145 mmol/L LAB CHEMISTRY METHOD 10/24/2024 7:56 AM [facility] Potassium 3.7 3.5 - 5.5 mmol/L LAB CHEMISTRY METHOD 10/24/2024 7:56 AM [facility] Chloride 111(H) 96 - 110 mmol/L LAB CHEMISTRY METHOD 10/24/2024 7:56 AM [facility] CO2 26 21 - 32 mmol/L LAB CHEMISTRY METHOD 10/24/2024 7:56 AM [facility] Anion Gap 4 3 - 11 LAB CHEMISTRY METHOD 10/24/2024 7:56 AM [facility] Glucose 104(H) 70 - 100 mg/dL LAB CHEMISTRY METHOD 10/24/2024 7:56 AM [facility] BUN 10 5 - 25 mg/dL LAB CHEMISTRY METHOD 10/24/2024 7:56 AM [facility] Creatinine 0.71 0.50 - 1.10 mg/dL LAB CHEMISTRY METHOD 10/24/2024 7:56 AM [facility] eGFR 96 >=60 mL/min/1. 73m2 LAB CHEMISTRY METHOD 10/24/2024 7:56 AM [facility] Comment:Calculation based on the??Chronic Kidney Disease Epidemiology Collaboration (CKD-EPI) equation refit??without adjustment for race. BUN/Creatinine Ratio 14.1 LAB CHEMISTRY METHOD 10/24/2024 7:56 AM [facility] Calcium 9.3 8.5 - 10.5 mg/dL LAB CHEMISTRY METHOD 10/24/2024 7:56 AM [facility] Blood Venous blood specimen / Unknown Venipuncture / Unknown 10/24/2024 6:53 AM EST 10/24/2024 7:17 AM EST us Julius Crespo MD LAB BLOOD ORDERABLES Final Res ult [facility] [address] [place] [address], [place] [phone] * (ABNORMAL) Urinalysis with reflex microscopic and culture (10/23/2024 9:15 PM EST) Specific [place] Urine 1.042(H) 1.003 - 1.030 LAB URINALYSIS - AUTOMATED METHOD 10/23/2024 9:32 PM [facility] pH, Urine 7.0 5.0 - 8.0 pH LAB URINALYSIS - AUTOMATED METHOD 10/23/2024 9:32 PM [facility] Leukocytes, Urine Negative Negative LAB URINALYSIS - AUTOMATED METHOD 10/23/2024 9:32 PM [facility] Nitrite, Urine Negative Negative LAB URINALYSIS - AUTOMATED METHOD 10/23/2024 9:32 PM [facility] Protein, Urine Negative <=Trace mg/dL LAB URINALYSIS - AUTOMATED METHOD 10/23/2024 9:32 PM [facility] Glucose, Urine Negative Negative mg/dL LAB URINALYSIS - AUTOMATED METHOD 10/23/2024 9:32 PM [facility] Ketones, Urine Trace(A) Negative mg/dL LAB URINALYSIS - AUTOMATED METHOD 10/23/2024 9:32 PM [facility] Urobilinogen, Urine 0.2 0.2 - 1.0 mg/dL LAB URINALYSIS - AUTOMATED METHOD 10/23/2024 9:32 PM [facility] Bilirubin, Urine Negative Negative LAB URINALYSIS - AUTOMATED METHOD 10/23/2024 9:32 PM [facility] Blood, Urine Negative Negative LAB URINALYSIS - AUTOMATED METHOD 10/23/2024 9:32 PM EST [facility] Urine Urine specimen obtained by clean catch procedure / Unknown Non-blood Collection / Unknown 10/23/2024 9:15 PM EST 10/23/2024 9:26 PM EST us Cora Noland DO LAB URINE ORDERABLES Raquel l Result Performing Organization Address [facility]/ZIP Co de Phone Number [facility] [address] [place] [address], [place] [phone] * Ibrahim urine culture tube (10/23/2024 9:15 PM EST) Extra Tube Hold for add-ons. 10/23/2024 11:01 PM EST [facility] Comment:Auto resulted. Urine Urine specimen obtained by clean catch procedure / Unknown Non-blood Collection / Unknown 10/23/2024 9:15 PM EST 10/23/2024 9:26 PM EST Cora Noland LAB URINE ORDERABLES Raquel l Result Performing Organization Address [facility] Co de Phone Number [facility] [address] [place] [address], [place] [phone] * CT Abdomen Pelvis w Contrast (10/23/2024 7:43 PM EST) Anatomical Region Laterality Modality Body Computed Tomogra phy 10/23/2024 8:14 PM EST Impressions 10/23/2024 8:14 PM EST 1. No acute intraabdominal or pelvic pathology. This document has been electronically signed by: Christopher Gtuierrez MD on 10/23/2024 20:14:57 Narrative 10/23/2024 8:14 [...] Christopher Gutierrez MD on 10/23/2024 20:14:57 us [facility] Vlad Welchny Ludin DO IMG CT PROCEDURES Final R esult * [id number], RSV, Influenza A and B qualitative RT-PCR (10/23/2024 6:28 PM EST) Influenza A PCR Not Detected Not Detected LAB MICROBIOLOGY METHOD 10/23/2024 8:00 PM [facility] Influenza B PCR Not Detected Not Detected LAB MICROBIOLOGY METHOD 10/23/2024 8:00 PM [facility] RSV PCR Not Detected Not Detected LAB MICROBIOLOGY METHOD 10/23/2024 8:00 PM [facility] SARS COV-2 Not Detected Not Detected LAB MICROBIOLOGY METHOD 10/23/2024 8:00 PM [facility] Swab Nasopharyngeal structure / Unknown Non-blood Collection / Unknown 10/23/2024 6:28 PM EST 10/23/2024 7:09 PM EST [facility] - 10/23/2024 8:00 PM EST Disclaimer: ??Testing was performed using the ZIIBRA GeneXpert Xpress SARS-CoV-2 _Flu_RSV PLUS PCR assay. [...] for Healthcare providers can be found at https://www.fda.gov/media/055424/download. ?? Fact sheet for Healthcare patients can be found at https://www.fda.gov/media/780078/download. Cora Noland DO LAB MICROBIOLOGY - GENERA L ORDERABLES Final Result [facility] [address] [place] [address], * Troponin I high sensitivity (10/23/2024 3:07 PM EST) Only the most recent of2 resultswithin the time period is included. High Sensitivity Troponin I 33 <=54 ng/L LAB CHEMISTRY METHOD 10/23/2024 5:17 PM EST [facility] Blood Venous blood specimen / Unknown Venipuncture / Unknown 10/23/2024 3:07 PM EST 10/23/2024 3:38 PM EST Narrative [facility] - 10/23/2024 5:17 PM EST High levels of biotin in samples may falsely decrease hsTroponin values. ??Use caution when interpreting hsTroponin results in patients taking biotin who exhibit renal impairment (eGFR <60) or in patients taking more than 20 mg/day of biotin. Judah Lala MD LAB BLOOD ORDERABLES Final Result [facility] [address] [place] [address], * ECG 12 lead (10/23/2024 12:29 PM EST) Ventricular Rate ECG 75 BPM GEMUSE Atrial Rate 75 BPM GEMUSE P-R Interval 116 ms GEMUSE QRS Duration 76 ms GEMUSE Q-T Interval 380 ms GEMUSE QTc 424 ms GEMUSE P Wave [place] 38 degrees GEMUSE R [place] 5 degrees GEMUSE T [place] 7 degrees GEMUSE ECG Interpretation Normal sinus rhythm Normal ECG No previous ECGs available Confirmed by DAVID SIERRA ([id number]) on 10/26/2024 8:48:41 AM GEMUSE 10/23/2024 12:2 9 PM EST 10/26/2024 8:48 AM EST Cora Noland DO ECG ORDERABLES Final Res ult Performing Organization Address [facility] Co de Phone Number GEM[facility] * Hepatitis C Screening (04/19/2023) Pathologist [facility] Hepatitis C Screening abstracted Historical Provider HEALTH MAINTENANCE Final Result * Pap Smear (11/22/2022) Pathologist [facility] Pap smear normal,abs tracted Historical Provider HEALTH MAINTENANCE Final Result * Colonoscopy (10/26/2021) Pathologist [facility] Colonoscopy normal,abs tracted Anatomical Region Laterality Modality Other Historical Provider HEALTH MAINTENANCE Final Result from Last 3 Months or Most Recently Relevant to Health Maintenance Insurance [facility] [address] [place] [address] Advance Directives * Full Code - Default [...] currently active code status orders. Care Teams Head Swamper Relationship Specialty Start Date End Date Jose Rafael George MD [address] [place], [place] [address], [place] [address] PCP - General Internal Medicine 10/23/24
--- OUTSIDE RECORDS SUMMARY | 2025-01-12 08:06 | XMS_ITS | Continuity of Care Document ---
Author Organization [facility] Address [address] [facility] [address] [place] [address] Insurance Providers Payer Plan Claims Address Claims Phone Policy Number Group Number Relation Employer Guarantor Name Guarantor Guarantor Address Guarantor Phone JEN Clement [facility] [place] [facility] [address], [place] [address] [id number] 1 Self Atiya Mitchell [address] [place] [id number] [place] [id number] Self Atiya Mitchell [address] [place] [id number] Problems Condition ICD9 code ICD10 code SNOMED code Start Date End Date S tatus Encounter for screening for other metabolic disorders Z13.228 Results No Results Allergies, adverse reactions, alerts No known allergies and adverse reactions Medications No administered medications reported Vital Signs No vital signs reported Social History No smoking Hx information available
--- NOTE | 2025-02-03 08:28 | HO.ANESPROP2 ---
Documented by User: Denise Cevallos NP 02/03/25 08:28 HPI - Anesthesia Eval Consult details Narrative: 64yo F for Upper Endoscopy PMFSH Active Problems Active Problems: All Active Problems GERD (gastroesophageal reflux disease) (Acute) DJD (degenerative joint disease) (Acute) Sleep apnea (Acute) Morbid obesity (Acute) Past Medical History Medical History GERD (gastroesophageal reflux disease) DJD (degenerative joint disease) Sleep apnea Morbid obesity Family History Family History Paternal Grandmother Pancreatic cancer Maternal Grandfather Pancreatic cancer Sister Cervical cancer Sister Breast cancer Mother Breast cancer Surgical History Surgical History History of esophagogastroduodenoscopy (EGD) H/O colonoscopy Hx of section Social History Social History Alcohol intake: current Alcohol intake frequency: holidays/special occasions only Patient Tobacco Use Status: Never used Tobacco Advance Directives: No Advance Directives Information Provided: Yes Meds Allergies Allergy/AdvReac Type Severity Reaction Status Date / Time oxycodone [From Percocet] AdvReac Intermediate Nausea and Verified 02/04/25 12:53 Vomiting propoxyphene AdvReac Intermediate Nausea and Verified 02/04/25 12:53 [From Darvocet-N] Vomiting Home Medications ?Medication ?Instructions ?Recorded ?Confirmed ?Last Taken ?Type cholecalciferol (vitamin D3) 50 50 mcg PO DAILY 12/22/24 12/31/24 Unknown History mcg (2,000 unit) capsule fluticasone propionate 50 spray intranasal 12/22/24 12/31/24 Unknown History mcg/actuation nasal spray,suspension magnesium 250 mg tablet 250 mg PO DAILY 12/22/24 12/31/24 Unknown History pantoprazole 40 mg tablet,delayed 40 mg PO DAILY 12/22/24 12/31/24 Unknown History release Assessment and Plan Assessment Anesthesia Assessment: Chart Reviewed Documented by User: Helga Painter MD 02/04/25 13:20 [facility] Past Medical History Medical History GERD (gastroesophageal reflux disease) DJD (degenerative joint disease) Sleep apnea Morbid obesity Family History Family History Paternal Grandmother Pancreatic cancer Maternal Grandfather Pancreatic cancer Sister Cervical cancer Sister Breast cancer Mother Breast cancer Surgical History Surgical History History of esophagogastroduodenoscopy (EGD) H/O colonoscopy Hx of section History of Problems with Anesthesia: No Social History Social History Alcohol intake: current Alcohol intake frequency: holidays/special occasions only Patient Tobacco Use Status: Never used Tobacco Advance Directives: No Advance Directives Information Provided: Yes Meds Allergies Allergy/AdvReac Type Severity Reaction Status Date / Time oxycodone [From Percocet] AdvReac Intermediate Nausea and Verified 02/04/25 12:53 Vomiting propoxyphene AdvReac Intermediate Nausea and Verified 02/04/25 12:53 [From Darvocet-N] Vomiting Home Medications ?Medication ?Instructions ?Recorded ?Confirmed ?Last Taken ?Type cholecalciferol (vitamin D3) 50 50 mcg PO DAILY 12/22/24 12/31/24 Unknown History mcg (2,000 unit) capsule fluticasone propionate 50 spray intranasal 12/22/24 12/31/24 Unknown History mcg/actuation nasal spray,suspension magnesium 250 mg tablet 250 mg PO DAILY 12/22/24 12/31/24 Unknown History pantoprazole 40 mg tablet,delayed 40 mg PO DAILY 12/22/24 12/31/24 Unknown History release Exam Airway Mallampati Class: III TM Dist: >3cm Neck ROM: Full Loose/Missing/Broken Teeth: No Heart: RRR Lungs: CTA Assessment and Plan Assessment Anesthesia Assessment: Anesthesia Plan Discussed and PAT Visit Final Anesthetic Review History of Problems with Anesthesia: No NPO: Yes ASA Class: III Final Preanesthetic Review: Meds/Allgs Chart Reviewed, Consent Obtained/Reviewed and Anes Risks/Benef Reviewed Patient Risk: Intermediate Procedure Risk: Intermediate Anesthetic Plan Anesthetic Plan: MAC: Disposition: Standard PACU
[2025-02-04 12:54] VITALS: BP 116/64; PULSE 77; RESP 14; TEMP 36.6; O2SAT 97; BMI 43.5
[2025-02-04] MEDS: Lactated Ringers 1,000 ML 100 ML IVCONT (13:00)
--- NOTE | 2025-02-04 13:19 | MHC.SHP ---
Pre-Procedural Eval Section A - 24 Hr Update-Section A only Date of Service: 02/04/25 The patient is an INPATIENT: No The patient has been examined within 24 hours of the surgical procedure. The History & Physical has been completed within 30 days and I have reviewed it.: Yes Section B - Complete if H&P > 30 days Chief Complaint: Morbid (severe) obesity due to excess calories Details of Present Illness: GERD Relevant Family History (Specify if Yes): No Relevant Social History: None Present Medications: None Medical History: No relevant PMH History of Previous Operations: No relevant previous surgery Allergies: Allergies Allergy/AdvReac Type Severity Reaction Status Date / Time oxycodone [From Percocet] AdvReac Intermediate Nausea and Verified 02/04/25 12:53 Vomiting propoxyphene AdvReac Intermediate Nausea and Verified 02/04/25 12:53 [From Darvocet-N] Vomiting Review of Systems Sugical H&P ROS: Negative: Constitution, Cardiovascular, Respiratory, Neurological, Psychiatric, Hem-Onc, Allergic/Immunologic, Gastrointestinal, Genitourinary, Musculoskeletal, Integumentary, Endocrine and Eyes/Ears/Nose/Throat Exam Surgical H&P Exam: Normal: HEENT, Normal: Heart, Normal: Lungs, Normal: Extremities, Normal: Abdomen, Normal: Skin and Normal: Neurological Plan Diagnosis/Plan: Unchanged (EGD to assess etiology of GERD. Risks of bleeding and perforation were discussed with the patient and she is in agreement with the plan.) I have reviewed the history and physical and performed a pertinent physical examination on my patient. No changes have occurred unless specified. Time Spent With Patient Time: Total time managing care of this patient today ____ minutes.
--- NOTE | 2025-02-04 13:25 | PM.OP ---
Brief Operative Note Date of Service: 02/04/25 Pre-op diagnosis: GERD Post-op diagnosis: same Procedure: PROCEDURE DATE: 02/04/2025 PREOPERATIVE DIAGNOSIS: GERD POSTOPERATIVE DIAGNOSIS: ?Same as above. PROCEDURE: [id number] with biopsies Surgeon: Franklyn Coleman M.D.. Ph.D. Journeyman Lineman: None ? Anesthesia: IV sedation Estimated blood loss: ?Minimal FINDINGS AND PROCEDURE: ? OPERATIVE INDICATIONS: ?The patient is a 64 year old female known to me who is interested in bariatric surgery. The patient has GERD. Based on this information I recommended an upper endoscopy to evaluate the patient's symptoms. Risks and complications of the surgery were discussed with the patient in advance particularly the possibility of perforation or bleeding that may require surgical intervention. The patient understood the risks and was in agreement with the plan. ? PROCEDURE: After informed consent was obtained by the patient, the patient was ?transferred to the Operating Room and was placed in the supine position.? After successful induction of IV sedation, a mouth block was inserted and the patient was placed in the left lateral decubitus position. An upper endoscopy was performed next, the oropharynx and esophagus appeared within the normal limits. There was no hiatal hernia. The z-line was smooth. Two biopsies were obtained from the distal esophagus 2-3 cm proximal to the GE junction and two additional biopsies from the GE junction. The stomach was entered and it appeared to be of normal size. There was no gastritis. There was no stricture or ulcer. A biopsy was obtained from the gastric fundus and the antrum. No significant bleeding was noted from any of the biopsy sites. Retroflexion of the scope confirmed a normal GE junction. The scope was then advanced into the duodenum which appeared to be normal as well. At that point the duodenum ?and the stomach were decompressed and the scope was withdrawn from the patient's mouth. The patient extubated and was transferred in stable condition to the Recovery Room for further care. I was present and performed all steps of the procedure. There were no residents to assist with this case. Jefe Coleman M.D., Ph.D. Surgeon: Maurice Coleman MD Anesthesia: MAC Was an Journeyman Lineman used for this Procedure?: No Estimated blood loss (mL): 0 IV fluids (mL): 400 Urine output (mL): 0 (No [place] to record output) Pathology: other (1) antrum x1, 2) fundus x1, 3) GE junction x2, 4) distal esophagus x2) Condition: stable Disposition: PACU
[2025-02-04 13:44] VITALS: BP 109/63; PULSE 70; RESP 18; TEMP 36.4; O2SAT 98
[2025-02-04 13:59] VITALS: BP 115/72; PULSE 85; RESP 16; TEMP 36.6; O2SAT 96
[2025-02-04 14:14] VITALS: BP 117/64; PULSE 70; RESP 17; TEMP 36.7; O2SAT 95
== END 2025-02-04 15:02 | disposition home or self-care (01) ==
PROVIDERS: PCP Internal Medicine; Visit Provider Surgery
PROC: 0DJ08ZZ Inspection of Upper Intestinal Tract, Via Natural or Artificial Opening Endoscopic (ICD-10-PCS; CPT 43235; principal; 2025-02-04 14:30)
DX: K21.9 Gastro-esophageal reflux disease without esophagitis (principal); E66.01 Morbid (severe) obesity due to excess calories; Z68.42 Body mass index [BMI] 45.0-49.9, adult; G47.30 Sleep apnea, unspecified; M19.90 Unspecified osteoarthritis, unspecified site; Z79.51 Long term (current) use of inhaled steroids; Z79.899 Other long term (current) drug therapy; Z88.5 Allergy status to narcotic agent
CPT/HCPCS: 43239; 88305; 88313; 88342; J2003; J2704

== ENCOUNTER → 2025-02-04 12:20 | Outpatient (BNV) | payer OTHER, SELFPAY | PROVIDERS: PCP Internal Medicine; Visit Provider Surgery | DX: K21.9 Gastro-esophageal reflux disease without esophagitis (principal) | CPT/HCPCS: 43239 ==

== ENCOUNTER 2025-02-10 12:00 | Outpatient (AMB) | payer OTHER, SELFPAY ==
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
== END 2025-02-10 13:16 | disposition home or self-care (01) ==
LOC: HO.HBST 12:27
PROVIDERS: PCP Internal Medicine; Visit Provider Counselor Mental Health
DX: F43.20 Adjustment disorder, unspecified (principal); Z71.89 Other specified counseling
CPT/HCPCS: 90837

== ENCOUNTER 2025-02-16 | Outpatient (REF) | payer OTHER, SELFPAY ==
--- NOTE | ~2025-02-16 | US_ITS ---
EXAMINATION: US ABDOMEN COMPLETE WITH LIVER ELASTOGRAPHY HISTORY: E66.01 - Morbid (severe) obesity due to excess calories TECHNIQUE: Real-time grayscale ultrasound imaging of the abdomen was performed and images were reviewed. COMPARISON: There are no prior studies available for comparison. FINDINGS: Liver: The right lobe of the liver measures 15.7 cm in size. The left lobe of the liver measures 8.3 cm in size. The liver demonstrates increased echotexture, consistent with steatosis. No focal mass or intrahepatic biliary ductal dilatation is identified. There is normal hepatopedal flow in the portal vein. Ultrasound elastography of the liver was performed with 10 separate measurements of the liver parenchyma with the patient in the supine position. Measurements were obtained approximately 2 cm below Armand's capsule and perpendicular to the capsule. The median shear wave velocity is 1.71 m/s. The interquartile range/median (IQR/median) is 0.05. Gallbladder and biliary tree: The gallbladder is unremarkable, without evidence of calculi, wall thickening, or pericholecystic fluid. There is no sonographic Churchill sign. The common bile duct is normal in caliber measuring 2 mm. Kidneys: The right kidney measures 12.4 cm in length. The left kidney measures 10.3 cm in length. There is a 1.6 x 1.7 x 1.2 cm cyst in the interpolar region of the left kidney and a 1.7 x 1.3 x 1.9 cm cyst at the lower pole. The kidneys are otherwise unremarkable, without evidence of solid masses, hydronephrosis, or calculi. Pancreas: The pancreatic head, neck, and body are unremarkable. The pancreatic tail is obscured by bowel gas. Spleen: The spleen is normal in size and contour, measuring 10.3 cm in length. Abdominal aorta and inferior vena cava: The visualized portions of the abdominal aorta and inferior vena cava are normal in caliber. There is no free fluid in the abdomen. US/US abdomen comp w elastography IMPRESSION: Hepatic steatosis. Left renal cysts as described. The median shear wave velocity in the liver is 1.71 m/s, corresponding to a median liver stiffness of 8.90 kPa. The IQR/median value is 0.05. This is indicative of a quality data set. Findings are indicative of a high elastography value suggestive of compensated advanced chronic liver disease. REFERENCE: Society of Radiologists in Ultrasound Liver Stiffness Thresholds (2020): LIVER STIFFNESS THRESHOLDS: *Shear wave velocity less than 1.3 m/s (Liver Stiffness equal or less than 5 kPa): High probability of being normal. *Shear wave velocity less than 1.7 m/s (Liver Stiffness less than 9 kPa): In the absence of other known clinical signs, rules out compensated advanced chronic liver disease. *Shear wave velocity between 1.7-2.1 m/s (Liver Stiffness 9-13 kPa): Suggestive of compensated advanced chronic liver disease but need further test for confirmation. *Shear wave velocity between 2.1-2.4 m/s (Liver Stiffness 13-17 kPa): Rules in compensated advanced chronic liver disease. *Shear wave velocity greater than 2.4 m/s (Liver Stiffness over 17 kPa): Suggestive of clinically significant portal hypertension. QUALITY OF DATA SET: *IQR/Median value equal or less than 0.15 implies a quality data set. *IQR/Median value over 0.15 implies a poor quality data set. SIGNIFICANT CHANGE FROM PRIOR EXAM: Significant change if liver stiffness measurement is 10% or greater from prior exam. OTHER CONSIDERATIONS: The stage of liver fibrosis may be overestimated in the setting of acute hepatitis, liver inflammation, elevated liver function tests, hepatic vascular congestion, obstructive cholestasis, non-fasting state, and infiltrative diseases such as amyloidosis and lymphoma. In some patients with NAFLD, the liver stiffness thresholds for compensated advanced chronic liver disease may be lower. In causes other than viral hepatitis and NAFLD, liver stiffness thresholds are not well established. Electronically signed by: Aníbal Escobedo MD 02/16/2025 10:27 AM EDT
--- OUTSIDE RECORDS SUMMARY | 2025-03-10 09:05 | XMS_ITS | Clinical Summary ---
Author Organization [address] Building Address [address] [place] [address] Phone Care Team Providers Care In Home Sales Representative Name Role Phone Jose Rafael George MD Primary Care Provider [phone] Allergies Active Allergy Reactions Criticality Noted Date Comments Oxycodone Nausea Only 10/23/2024 Medications fluticasone propionate (FLONASE) 50 mcg/actuation nasal spray Administer 1 spray into each nostril 1 (one) time each day. 2 Sprays by Each Nare route daily for 360 days. - Each Nare 15.8 mL 01/14/20 25 Active pantoprazole (PROTONIX) 40 mg EC tablet TAKE 1 TABLET BY MOUTH EVERY DAY 90 tablet 1 02/10/20 25 Active pantoprazole (PROTONIX) 40 mg EC tablet TAKE 1 TABLET BY MOUTH EVERY DAY 90 tablet 1 10/06/19 25 025 Discontinued Active Problems Problem Noted Date Diagnosed Date Nausea and vomiting 10/23/2024 Current moderate episode of major depressive disorder (CMS/HCC V24, CMS/HCC V28) 08/10/2023 GERD (gastroesophageal reflux disease) 2 Hypertension 07/07/2022 Obesity 07/07/2022 Osteoarthritis 07/07/2022 Encounters Date Type Department Care Team Description 01/13/2025 3:30 PM EDT Office Visit Internal Medicine - [address] [phone] Jose Rafael George MD Class 3 severe obesity due to excess calories without serious comorbidity with body mass index (BMI) of 45.0 to 49.9 in adult ([facility] V24, [facility] V28) (Primary Dx); Gastroesophageal reflux disease without esophagitis from Last 3 Months Immunizations Name Administration [...] care for your loved ones. For example, assistant child care teacher or elderly care for an older adult? [...] 90 01/13/2025 3:39 PM EDT Temperature 36.5 C (97.7 F) 10/24/2024 6:22 AM EST Respiratory Rate 16 10/24/2024 12:05 PM EST [...] PM EST Office Visit Internal Medicine - [facility] [address] [place], [place] [phone] Jose Rafael George MD [address] [place] [address] Health Maintenance Due Date Last Done Comments Breast Cancer Screening 1960 Pneumococcal Vaccine: 50+ Years (1 of 1 - PCV) 2011 Zoster Vaccines (1 of 2) 2011 RSV Immunization Adult Patients (1 - Risk 60-74 years 1-dose series) 2021 HIV Screening 08/20/2022 COVID-19 Vaccine (4 - season) 2024 09/08/2021, 01/20/2021, 12/23/2020 Hypertension/CHF/CAD Annual [...] resultswithin the time period is included. Provider [facility] LAB BLOOD ORDERABLES Fin al Result * External Xray Report (01/09/2025) Anatomical Region Laterality Modality Radiographic Amy ging Provider [facility] XR PROCEDURES Final Result * Lipid panel with reflex to direct LDL (10/24/2024 6:53 AM EST) Cholesterol 158 0 - 200 mg/dL LAB CHEMISTRY METHOD 10/24/2024 7:56 AM EST [facility] Triglycerides 69 0 - 150 mg/dL LAB CHEMISTRY METHOD 10/24/2024 7:56 AM EST [facility] HDL 69 >=40 mg/dL LAB CHEMISTRY METHOD 10/24/2024 7:56 AM EST [facility] LDL Calculated 75 0 - 100 mg/dL LAB CHEMISTRY METHOD 10/24/2024 7:56 AM EST [facility] VLDL Cholesterol Antolin 13.8 mg/dL LAB CHEMISTRY METHOD 10/24/2024 7:56 AM EST [facility] Non HDL Chol. (LDL+VLDL) 89 <145 mg/dL LAB CHEMISTRY METHOD 10/24/2024 7:56 AM [facility] Chol/HDL Ratio 2.3 0.0 - 4.4 LAB CHEMISTRY METHOD 10/24/2024 7:56 AM [facility] Blood Venous blood specimen / Unknown Venipuncture / Unknown 10/24/2024 6:53 AM EST 10/24/2024 7:17 AM EST us Julius Crespo MD LAB BLOOD ORDERABLES Final Res ult [facility] [address] [place] [address], * (ABNORMAL) Basic metabolic panel (10/24/2024 6:53 [...] LAB CHEMISTRY METHOD 10/24/2024 7:56 AM EST [facility] Creatinine 0.71 0.50 - 1.10 mg/dL LAB CHEMISTRY METHOD 10/24/2024 7:56 AM EST [facility] eGFR 96 >=60 mL/min/1. 73m2 LAB CHEMISTRY METHOD 10/24/2024 7:56 AM EST [facility] Comment:Calculation based on the Chronic Kidney Disease Epidemiology Collaboration (CKD-EPI) equation refit without adjustment for race. BUN/Creatinine Ratio 14.1 LAB CHEMISTRY METHOD 10/24/2024 7:56 AM [facility] Calcium 9.3 8.5 - 10.5 mg/dL LAB CHEMISTRY METHOD 10/24/2024 7:56 AM [facility] Blood Venous blood specimen / Unknown Venipuncture / Unknown 10/24/2024 6:53 AM EST 10/24/2024 7:17 AM EST Julius Crespo MD LAB BLOOD ORDERABLES Final Res ult [facility] [address] [place] [address], * Hepatitis C Screening (04/19/2023) Hepatitis C Screening abstracted Historical Provider HEALTH MAINTENANCE Final Result * Pap Smear (11/22/2022) Pap smear normal,abs tracted Historical Denny RILEY HEALTH MAINTENANCE Final Result * Colonoscopy (10/26/2021) Pathologist [facility] Colonoscopy normal,abs tracted Anatomical Region Laterality Modality Other Historical Provider HEALTH MAINTENANCE Final Result from Last 3 Months or Most Recently Relevant to Health Maintenance Insurance [facility] [address] [place] [address] Advance Directives * Full Code - Default [...] currently active code status orders. Care Teams In Home Sales Representative Relationship Specialty Start Date End Date Jose Rafael George MD [facility] [place] [address] PCP - General Internal Medicine 10/23/24
--- OUTSIDE RECORDS SUMMARY | 2025-03-10 09:05 | XMS_ITS | Continuity of Care Document ---
Author Organization [facility] Address [address] [facility] [address] [place] [address] Insurance Providers Payer Plan Claims Address Claims Phone Policy Number Group Number Relation Employer Guarantor Name Guarantor Guarantor Address Guarantor Phone JEN Clement [facility] [place] [address] [facility] [address], [place] [address] [id number] 1 Self Atiya Mitchell [address] [place] [id number] [place] [id number] Self Atiya Mitchell [address] [place] [phone] Problems Condition ICD9 code ICD10 code SNOMED code Start Date End Date S tatus Encounter for screening for other metabolic disorders Z13.228 Results No Results Allergies, adverse reactions, alerts No known allergies and adverse reactions Medications No administered medications reported Vital Signs No vital signs reported Social History No smoking Hx information available
== END 2025-02-16 00:01 | disposition home or self-care (01) ==
LOC: HO.US
PROVIDERS: PCP Internal Medicine; Visit Provider Surgery
DX: E66.01 Morbid (severe) obesity due to excess calories (principal); K21.9 Gastro-esophageal reflux disease without esophagitis; G47.30 Sleep apnea, unspecified
CPT/HCPCS: 76700; 76981

== ENCOUNTER → 2025-02-16 09:03 | Outpatient (BNV) | payer OTHER, SELFPAY | PROVIDERS: PCP Internal Medicine; Visit Provider Radiology Diagnostic Radiology | DX: N28.1 Cyst of kidney, acquired (principal) | CPT/HCPCS: 76700 ==

== ENCOUNTER 2025-02-16 14:48 | Outpatient (AMB) | payer OTHER, SELFPAY ==
[2025-02-16 11:04] VITALS: BMI 43.2
--- NOTE | 2025-02-16 11:04 | MHC.OFFVISWM ---
VS Expanded 02/16/25 11:04 Height 5 ft 4 in Weight 251 lb 8 oz BMI 43.2 Body Fat % 59.7 Body Fat Mass 150.3 Fat Free Mass 101.6 Visceral Fat Rating 24 Body Water % 27.7 Body Water Mass 69.7 Basal Metabolic Rate/Score 1,366 Intake Visit Reasons: TV Pre Op LSG 02/26/25 Allergies oxycodone [From Percocet] Adverse Reaction (Intermediate, Verified 02/16/25 12:03) Nausea and Vomiting propoxyphene [From Darvocet-N] Adverse Reaction (Intermediate, Verified 02/16/25 12:03) Nausea and Vomiting Medication List - Last Reconciled 02/16/25 by Maurice Coleman MD cholecalciferol (vitamin D3) 50 mcg PO DAILY fluticasone propionate 50 mcg/actuation sprays intranasal magnesium 250 mg PO DAILY ondansetron 4 mg PO Q6H PRN pantoprazole 40 mg PO DAILY pantoprazole 40 mg PO DAILY polyethylene glycol 3350 17 grams PO DAILY sucralfate 10 mL PO BID HPI HPI TV Pre Op LSG 02/26/25: Details: Start time: 6.17pm, End time: 6.47pm ?I spent 25 minutes speaking with the patient on the phone plus an additional 5 minutes reviewing and updating records for a total of 30 minutes HPI Comments Details: Overall weight loss: 23.6 lbs, or 8.57% TBWL Is doing 3 Celebrate Rebuild protein shakes with one scoop each in 8oz almond milk, 2 Celebrate protein bars and one meal (10 forks of meat and 10 forks of salad or vegetables) Exercise: is doing treadmill for 400 calories, 5 days per week PFSH Medical History GERD (gastroesophageal reflux disease) DJD (degenerative joint disease) Sleep apnea Morbid obesity Surgical History History of esophagogastroduodenoscopy (EGD) H/O colonoscopy Hx of section Family History Paternal Grandmother Pancreatic cancer Maternal Grandfather Pancreatic cancer Sister Cervical cancer Sister Breast cancer Mother Breast cancer Social History Are you a primary career development counselor to a significant other at home: No Do you presently have visiting nurse or other home services: No Alcohol intake: current Alcohol intake frequency: does not drink Patient Tobacco Use Status: Never used Tobacco Physical Exam Vital Signs: BMI result Body Mass Index 43.2 Telehealth Telehealth Telehealth Platform: Telephone Location of provider rendering services: practice address Location of patient: address on file Patient Identification confirmed using: Name, : Yes Telehealth method: voice only Patient verbally consented to treatment: Yes Patient verbally consented to billing insurance company: Yes Patient informed of any privacy concerns related to visit: Yes Minutes spent on Phone/Video with Pt.: 30 Assessment & Plan Assessment & Plan (1) Morbid obesity: Code(s): E66.01 - Morbid (severe) obesity due to excess calories Category: Medical Plan: 1. Plan for lap sleeve gastrectomy including upper GI endoscopy. All tests has been completed and reviewed and the patient is cleared for the surgery. ?If diaphragmatic or ventral hernias are present at time of surgery, these will be repaired laparoscopically as well. Risks and complications were discussed in detail including possible conversion to an open procedure, anastomotic leak, bleeding requiring transfusion, small bowel obstruction, , DVT and pulmonary embolism, cardiac, or pulmonary complications, as shelter complications such as anastomotic ulcer, insufficient weight loss and vitamin deficiencies. I emphasized the importance of close follow-up, adherence to instructions and good communication. So far she has proven to be an excellent communicator and very compliant with all our directions accomplishing a great weight loss. I believe that she is an excellent candidate and she is ready. 2. Preop prescriptions were provided and explained the purpose of each one. Need to be purchased preop. Start Pantoprazole now as you get it from the pharmacy, 1 pill per day. Sucralfate and Zofran are for after surgery as needed. 3. Bowel prep: please do 7 packets ?of Miralax mixing each one with a an 8oz glass of water, crystal light, gatorade zero, or propel ?on 02/24/25 and the same amount on 02/25/25. The Miralax you begin with one packet at a time in 8oz water or crystal light, gatorade zero, or propel ?as early in the day as you can and you do them back to back until you finish them. Continue the protein shakes during ?the bowel prep. 4. Needs to purchase 1oz medicine cups . 5. Needs to purchase Children's liquid Tylenol for postop pain control. 6. Avoid aspirin, motrin, Advil, Aleve, Meloxicam, Excedrin, Ibuprofen, Naproxyn. Tylenol is OK. 7. She needs to purchase the Celebrate multivitamins from the hospital's gift shop, chewable or pills whatever you prefer. 8. Will do basic preop blood work-up any day between Sunday02/17/25 and Sunday02/20/25 fasting for 12 hours and is scheduled to see the Anesthesiologist prior to the day of surgery. 9. Importance of adherence to postop folllow-up and recommendations was underscored and she understands that. 10. Stop food and bars as of tomorrow 02/17/25 and continue with 2 Celebrate REBUILD protein shakes (ONE scoop EACH in 8oz almond milk) at 7am-9am, 10am-12pm and THREE more Celebrate Rebuild protein shakes with TWO scoops EACH in 10oz of almond milk at 1pm-3pm, 4pm-6pm and 7pm-9pm 11. No soups, broths or V8 12. The patient's?medical?history has been reviewed and they are considered low risk for post op DVT and therefore DVT prophylaxis is not considered necessary. Travel after surgery was reviewed. The patient has not disclosed any travel plans during the first 30 days after surgery and they have been advised that within the first 30 days after surgery any bus, plane, train or car travel over 2 hours in duration is contraindicated due to the possibility of developing blood clots from immobility. Any travel, needs to include periods of ambulation of 10 minutes in duration every 2 hours.? Patient was instructed to discuss any plans for travel during this period with their bariatric surgeon.? 13. Please take at the day of surgery the following medications: NONE 14. Stop any control pills and don't use them for one month after surgery 15. Absolutely no smoking or vaping, or marijuana until the surgery and for at least the first 4 weeks. Only nicotine patches are allowed. 16. Send me weight measurements on 02/19/25 and then on 02/26/25, the day of surgery before you go to the hospital. 17. Avoid any steroids by mouth for any reason. Let me know if someone prescribes them to you 18. These instructions supersede anything else you read in the handbook, anything you watched in videos or classes or you were told by any other provider. If there is any conflict, you follow the above instructions and nothing else. Orders: Orders TSH reflex Free T4 Today E66.01 - Morbid (severe) obesity due to excess calories C Reactive Protein Today E66.01 - Morbid (severe) obesity due to excess calories Lipid Panel Today E66.01 - Morbid (severe) obesity due to excess calories Hemoglobin A1c Today E66.01 - Morbid (severe) obesity due to excess calories Complete Blood Count Auto Diff Today E66.01 - Morbid (severe) obesity due to excess calories Comprehensive Met. Panel Today E66.01 - Morbid (severe) obesity due to excess calories Prothrombin Time INR Today E66.01 - Morbid (severe) obesity due to excess calories Type and Screen Today E66.01 - Morbid (severe) obesity due to excess calories Partial Thromboplastin Time Today E66.01 - Morbid (severe) obesity due to excess calories Insulin Today E66.01 - Morbid (severe) obesity due to excess calories Medications: New pantoprazole 40 mg PO DAILY 90 tabs 0RF K21.9 - Gastro-esophageal reflux disease without esophagitis sucralfate 10 mL PO BID 600 mL 2RF K21.9 - Gastro-esophageal reflux disease without esophagitis ondansetron Only take one every 12 hours as needed if you have nausea 4 mg PO Q6H PRN 20 tabs 0RF nausea and vomiting R11.0 - Nausea polyethylene glycol 3350 Mix each measuring cup with 8oz of water, Crystal light, or Gatorade zero, or Propel and do 7 measuring cups on 02/24/25 and another 7 measuring cups on 02/25/25 17 grams PO DAILY 238 grams 0RF Z01.818 - Encounter for other preprocedural examination
== END 2025-02-16 18:48 | disposition home or self-care (01) ==
LOC: HO.HBS 14:48
PROVIDERS: PCP Internal Medicine; Visit Provider Surgery
DX: E66.01 Morbid (severe) obesity due to excess calories (principal)
CPT/HCPCS: 99214

== ENCOUNTER 2025-02-26 07:45 | Day surgery (SDC) | payer OTHER, SELFPAY ==
[2025-02-16 09:05] LABS: MANUAL DIFF FLAG NO
[2025-02-16 09:40] LABS: Basophils Percent Auto 0.7 % (0-2); Eosinophils Absolute Auto 0.1 X10*3/uL (0.0-0.4); Eosinophils Percent Auto 2.5 % (0-4); Hematocrit 39.9 % (37.0-47.0); Hemoglobin 13.2 g/dl (12.0-16.0); Imm Gran Abs Auto 0.02 X10*3/uL (0.00-0.03); Imm Gran Pct Auto 0.4 % (0.0-0.4); Lymphocytes Absolute Auto 1.1 X10*3/uL (1.2-4.9); Lymphocytes Percent Auto 19.6 % (20-40); Mean Corpuscular HGB Conc 33.1 g/dl (31.0-35.0); Mean Corpuscular Hemoglobin 28.4 pg (27.0-33.0); Monocytes Absolute Auto 0.3 X10*3/uL (0.1-1.2); Monocytes Percent Auto 5.9 % (2-11); Neutrophils Absolute Auto 3.9 x10*3/uL (2.0-8.3); Neutrophils Percent Auto 70.9 % (45-73); Platelet Count 251 X10*3/uL (160-400); Red Blood Count 4.64 X10*6/uL (4.20-5.50); Red Cell Distribution Width 12.9 % (11.0-16.0); White Blood Count 5.6 X10*3/uL (4.8-10.8)
[2025-02-16 09:41] LABS: INTERNATIONAL NORM RATIO 1.1 (0.9-1.1); Prothrombin Time 12.9 SEC (10.9-12.4)
[2025-02-16 09:44] LABS: Estimated Average Glucose 105 mg/dL; Hemoglobin A1c % 5.3 % (<6.0); Partial Thromboplastin Time 36.7 SEC (26.0-36.8); Total Hemoglobin (HGBA1C) 3528.8103 umol/L
[2025-02-16 10:13] LABS: Alanine Aminotransferase 28 U/L (0-31); Albumin Level 4.4 g/dL (3.5-5.0); Alkaline Phosphatase 83 U/L (39-117); Anion Gap 12 (12-20); Aspartate Amino Transferase 24 U/L (5-31); Bilirubin Total 0.7 mg/dL (0.0-1.0); Blood Urea Nitrogen 17 mg/dL (9-16); C Reactive Protein 0.98 mg/dL (< or = 0.50); Calcium 9.7 mg/dL (8.4-10.2); Carbon Dioxide 27 mmol/L (22-29); Chloride 107 mmol/L (96-108); Cholesterol 169 mg/dL (<200); Estimated Glomerular Filt Rate > 60; Glucose Random 97 mg/dL (60-115); HDL Cholesterol 43 mg/dL (>40); Iron 70 mcg/dL (30-160); LDL Cholesterol Calculated 109 mg/dL (<100); Percent Iron Saturation 27 % (15-50); Potassium 4.1 mmol/L (3.3-5.1); Sodium 142 mmol/L (135-145); Total Iron Binding Capacity 259 mcg/dL (228-428); Total Protein 7.4 g/dL (6.5-8.0); Triglycerides 85 mg/dL (<150); Unsaturated Iron Binding 189 ug/dL
[2025-02-16 10:32] LABS: Ferritin 80 ng/mL (10-250); TSH reflex Free T4 1.57 uIU/mL (0.32-4.0); Vitamin D 25-OH Total 32.6 ng/mL (>30)
[2025-02-16 10:34] LABS: Vitamin B12 562 pg/mL (200-900)
[2025-02-16 10:42] LABS: Insulin 8 uU/mL (2-29)
[2025-02-19 11:41] VITALS: BMI 42.6
[2025-02-19 13:53] LABS: Zinc 66 mcg/dL (60-130)
[2025-02-20 17:43] LABS: Vitamin B1 <6 nmol/L (8-30)
[2025-02-20 18:48] LABS: Vitamin A 35 mcg/dL (38-98)
--- NOTE | 2025-02-24 15:05 | HO.ANESPROP2 ---
Documented by User: Dneise Cevallos NP 02/24/25 15:06 HPI - Anesthesia Eval Consult details Narrative: 64yo F for Gastrectomy Sleeve - EGD, possible diaphragmatic hernia, possible ventral hernia, possible open PMFSH Active Problems Active Problems: All Active Problems Pre-op evaluation (Acute) GERD (gastroesophageal reflux disease) (Acute) DJD (degenerative joint disease) (Acute) Sleep apnea (Acute) Morbid obesity (Acute) Past Medical History Medical History (Updated 02/26/25 @ 09:44 by Maurice Coleman MD) GERD (gastroesophageal reflux disease) DJD (degenerative joint disease) Sleep apnea Morbid obesity Family History Family History Paternal Grandmother Pancreatic cancer Maternal Grandfather Pancreatic cancer Sister Cervical cancer Sister Breast cancer Mother Breast cancer Surgical History Surgical History (Updated 02/19/25 @ 11:39 by Lanie Hathaway, RN) History of esophagogastroduodenoscopy (EGD) (02/04/25) H/O colonoscopy Hx of section History of Problems with Anesthesia: No Social History Social History (Updated 02/19/25 @ 11:46 by Lanie Hathaway, RN) Household Members: Other Housing: House Are you a primary critical care unit manager to a significant other at home: No Do you presently have visiting nurse or other home services: No Alcohol intake: current Alcohol intake frequency: does not drink Patient Tobacco Use Status: Never used Tobacco Use of substances other than those prescribed or required for medical reasons: No Have you been hit, kicked, punched, or otherwise hurt by someone within the past year? If so, by whom?: No Are you DNR?: No Advance Directives: No Advance Directives Information Provided: Yes Advance Directives on File: No Poor oral hygiene: No Meds Allergies Allergy/AdvReac Type Severity Reaction Status Date / Time oxycodone (From Percocet) AdvReac Intermediate Nausea and Verified 02/16/25 12:03 Vomiting propoxyphene (From AdvReac Intermediate Nausea and Verified 02/16/25 12:03 Darvocet-N) Vomiting Home Medications ?Medication ?Instructions ?Recorded ?Confirmed ?Last Taken ?Type cholecalciferol (vitamin D3) 50 50 mcg PO DAILY 12/22/24 02/19/25 02/25/25 History mcg (2,000 unit) capsule fluticasone propionate 50 1 spray intranasal DAILY PRN 12/22/24 02/19/25 12/27/24 History mcg/actuation nasal Allergy Symptoms spray,suspension magnesium 250 mg tablet 250 mg PO DAILY 12/22/24 02/19/25 02/24/25 History pantoprazole 40 mg tablet,delayed 40 mg PO DAILY 12/22/24 02/19/25 02/25/25 History release Exam Height,Weight and Vital Signs: Height 5 ft 4 in Weight 112.491 kg Pertinent Lab Results Pertinent Lab Results: Laboratory Tests 02/16/25 09:00 WBC 5.6 RBC 4.64 Hgb 13.2 Hct 39.9 MCV 86.0 MCH 28.4 MCHC 33.1 RDW 12.9 Plt Count 251 MPV 11.0 Immature Gran % (Auto) 0.4 Neut % (Auto) 70.9 Lymph % (Auto) 19.6 L [place] % (Auto) 5.9 Eos % (Auto) 2.5 Baso % (Auto) 0.7 Lymph # (Auto) 1.1 L [place] # (Auto) 0.3 Eos # (Auto) 0.1 Baso # (Auto) 0.0 Abs Immat Gran (auto) 0.02 Absolute Neuts (auto) 3.9 Absolute Nucleated RBC 0.000 Nucleated RBC % (auto) 0.0 PT 12.9 H INR 1.1 APTT 36.7 Sodium 142 Potassium 4.1 Chloride 107 Carbon Dioxide 27 Anion Gap 12 BUN 17 H Creatinine 0.80 Estim Creat Clear Calc TNP Estimated GFR > 60 Random Glucose 97 Estimat Average Glucose 105 Hemoglobin A1c % 5.3 Insulin Level 8 Calcium 9.7 Iron 70 TIBC 259 % Saturation 27 Unsat Iron Binding 189 Ferritin 80 Total Bilirubin 0.7 AST 24 ALT 28 Alkaline Phosphatase 83 C-Reactive Protein 0.98 H Total Protein 7.4 Albumin 4.4 Triglycerides 85 Cholesterol 169 LDL Cholesterol, Calc 109 H HDL Cholesterol 43 Vitamin A 35 L Vitamin B1 <6 L Vitamin B12 562 25-OH Vitamin D Total 32.6 TSH 1.57 Zinc 66 Blood Type O Negative Antibody Screen NEGATIVE Narrative Narrative: EKG 01/2025 Vent. Rate : 75 BPM Atrial Rate : 75 BPM P-R Int : 136 ms QRS Dur : 76 ms QT Int : 374 ms P-R-T Axes : 50 5 30 degrees QTcB Int : 417 ms Normal sinus rhythm Low voltage QRS Borderline ECG No previous ECGs available Assessment and Plan Assessment Anesthesia Assessment: Chart Reviewed Final Anesthetic Review History of Problems with Anesthesia: No Documented by User: Helga Painter MD 02/26/25 10:29 [facility] Past Medical History Medical History (Updated 02/26/25 @ 09:44 by Maurice Coleman MD) GERD (gastroesophageal reflux disease) DJD (degenerative joint disease) Sleep apnea Morbid obesity Family History Family History Paternal Grandmother Pancreatic cancer Maternal Grandfather Pancreatic cancer Sister Cervical cancer Sister Breast cancer Mother Breast cancer Surgical History Surgical History (Updated 02/19/25 @ 11:39 by Lanie Hathaway, RN) History of esophagogastroduodenoscopy (EGD) (02/04/25) H/O colonoscopy Hx of section Social History Social History (Updated 02/19/25 @ 11:46 by Lanie Hathaway, RN) Household Members: Other Housing: House Are you a primary critical care unit manager to a significant other at home: No Do you presently have visiting nurse or other home services: No Alcohol intake: current Alcohol intake frequency: does not drink Patient Tobacco Use Status: Never used Tobacco Use of substances other than those prescribed or required for medical reasons: No Have you been hit, kicked, punched, or otherwise hurt by someone within the past year? If so, by whom?: No Are you DNR?: No Advance Directives: No Advance Directives Information Provided: Yes Advance Directives on File: No Poor oral hygiene: No Meds Allergies Allergy/AdvReac Type Severity Reaction Status Date / Time oxycodone (From Percocet) AdvReac Intermediate Nausea and Verified 02/16/25 12:03 Vomiting propoxyphene (From AdvReac Intermediate Nausea and Verified 02/16/25 12:03 Darvocet-N) Vomiting Home Medications ?Medication ?Instructions ?Recorded ?Confirmed ?Last Taken ?Type cholecalciferol (vitamin D3) 50 50 mcg PO DAILY 12/22/24 02/19/25 02/25/25 History mcg (2,000 unit) capsule fluticasone propionate 50 1 spray intranasal DAILY PRN 12/22/24 02/19/25 12/27/24 History mcg/actuation nasal Allergy Symptoms spray,suspension magnesium 250 mg tablet 250 mg PO DAILY 12/22/24 02/19/25 02/24/25 History pantoprazole 40 mg tablet,delayed 40 mg PO DAILY 12/22/24 02/19/25 02/25/25 History release Exam Airway Mallampati Class: III TM Dist: >3cm Neck ROM: Full Loose/Missing/Broken Teeth: No Heart: RRR Lungs: CTA Assessment and Plan Assessment Anesthesia Assessment: Anesthesia Plan Discussed Final Anesthetic Review NPO: Yes ASA Class: III Final Preanesthetic Review: Meds/Allgs Chart Reviewed, Consent Obtained/Reviewed and Anes Risks/Benef Reviewed Patient Risk: Intermediate Procedure Risk: Intermediate Anesthetic Plan Anesthetic Plan: GA Disposition: Standard PACU
[2025-02-26] VITALS (18 sets, daily range): BP systolic 89–140; BP diastolic 51–83; PULSE 58–90; RESP 16–20; TEMP 36–36.6; O2SAT 93–100; BMI 41.7
[2025-02-26] MEDS: Aprepitant 32 MG/4.4 ML VIAL IVPUSH (08:00)
[2025-02-26] MEDS: Lactated Ringers 1,000 ML 999 ML IV (08:20)
[2025-02-26 09:02] LABS: Glucose, Whole Blood 91 mg/dL (60-115)
--- NOTE | 2025-02-26 09:22 | PC.NURSE ---
pt sts feeling better nad neuros intact dr heredia at bedside aware fluids infusing without problem dr wynn aware pt feeling better vss see notes in vitals
[2025-02-26] MEDS: Lactated Ringers 1,000 ML 100 ML IVCONT ×2 (09:29→14:28)
--- NOTE | 2025-02-26 09:39 | MHC.SHP ---
Pre-Procedural Eval Section A - 24 Hr Update-Section A only Date of Service: 02/26/25 The patient is an INPATIENT: No The patient has been examined within 24 hours of the surgical procedure. The History & Physical has been completed within 30 days and I have reviewed it.: Yes Section B - Complete if H&P > 30 days Chief Complaint: Morbid (severe) obesity due to excess calories Relevant Family History (Specify if Yes): No Relevant Social History: None Present Medications: None Medical History: No relevant PMH History of Previous Operations: No relevant previous surgery Allergies: Allergies Allergy/AdvReac Type Severity Reaction Status Date / Time oxycodone (From Percocet) AdvReac Intermediate Nausea and Verified 02/16/25 12:03 Vomiting propoxyphene (From AdvReac Intermediate Nausea and Verified 02/16/25 12:03 Darvocet-N) Vomiting Review of Systems Sugical H&P ROS: Negative: Constitution, Cardiovascular, Respiratory, Neurological, Psychiatric, Hem-Onc, Allergic/Immunologic, Gastrointestinal, Genitourinary, Musculoskeletal, Integumentary, Endocrine and Eyes/Ears/Nose/Throat Exam Surgical H&P Exam: Normal: HEENT, Normal: Heart, Normal: Lungs, Normal: Extremities, Normal: Abdomen, Normal: Skin and Normal: Neurological Plan Diagnosis/Plan: Unchanged I have reviewed the history and physical and performed a pertinent physical examination on my patient. No changes have occurred unless specified. Time Spent With Patient Time: Total time managing care of this patient today ____ minutes.
--- NOTE | 2025-02-26 09:40 | PM.OP ---
Brief Operative Note Date of Service: 02/26/25 Pre-op diagnosis: Morbid obesity with comorbidities (see below) Post-op diagnosis: same (extensive congenital adhesions) Procedure: INITIAL PATIENT BMI ON PRESENTATION AT OUR OFFICE: 47.3 kg/m2 LAST BMI BEFORE SURGERY: 42.9 kg/m2 COMORBIDITIES: sleep apnea, GERD, DJD, liver steatosis, liver fibrosis ?The patient presented to the Weight Management Program with significant obesity that was negatively impacting the patient's comorbidities as listed above.? The program is a phased program with a special focus on preoperative medical weight management to promote substantial weight loss and prepare the patients for the second phase of the program: bariatric surgery. The patient participated in an intensive weekly lifestyle ?intervention and exercise program during which the patient ?has lost between the initial office visit and the last preoperative visit 27.4 lbs, or 10% of initial actual body weight. It was deemed appropriate for the patient to now have bariatric surgery. In light of the current Covid-19 pandemic and the well documented strong association of obesity and increased risk of worse outcomes if infected with Covid-19 (REFERENCES:https://pubmed.ncbi.nlm.nih.gov/68283619/,?https://pubmed.ncbi.nlm.nih.gov/88859461/), any delay in undergoing bariatric surgery may lead to the patient's worsening health condition and increased?risk of more severe Covid-19 disease if infected. In addition a recent?study from [facility] published in [employer] on 09/05/2021 ([email or web address]) found that, among patients with obesity, substantial weight loss achieved with surgery was associated with improved outcomes of COVID-19 infection. The findings suggest that obesity can be a modifiable risk factor for the severity of COVID-19 infection. In addition, the patient met the BMI-criteria for bariatric surgery based on the BMI on initial presentation. The patient should not be penalized for achieving such weight loss because ?it is not sustainable long-term without surgical intervention and it was achieved in preparation for bariatric surgery ?under my direction and based on my published research ([email or web address]).[email or web address] and?https://www.soard.org/article/[email or web address])62730-X/pdf) ?that a 10% preoperative weight loss improves long-term weight loss after surgery and reduces perioperative complications.? Insurance carriers such as [facility] have endorsed my recommendations ?and have included in their policies criteria to include a 10% preoperative weight loss requirement. PROCEDURE: Esophago-gastroscopy, laparoscopic lysis of adhesions, laparoscopic sleeve gastrectomy, laparoscopic excision of gastric tumor and laparoscopic gastropexy INDICATIONS: This is a 64 year-old female who was electively scheduled for laparoscopic, possibly open sleeve gastrectomy. The risks and complications of the procedure were discussed with the patient in advance, particularly the possibility of ; pulmonary embolism; staple line leak; bleeding; GERD; cardiac, pulmonary, or renal complications; as well as long-term problems such as insufficient weight loss, vitamin deficiency, strictures, or ulcers. The patient understood all the risks, and was in agreement to proceed with surgery. DESCRIPTION OF PROCEDURE: After informed consent was obtained from the patient, the patient was given preoperative antibiotics, and was transferred to the operating room. After successful induction of general anesthesia, pneumatic compression devices were placed on both lower extremities. An upper endoscopy was performed next. The oropharynx and esophagus appeared to be within normal limits. There was no diaphragmatic hernia present of moderate size. The stomach was entered. Then after all fluid and air were suctioned and the stomach was fully decompressed, the scope was withdrawn and secured in the mid esophagus. The patient was then prepped and draped in the usual sterile manner, and abdominal access was established at the right upper quadrant with the Augustin technique. A 12 mm blunt port was inserted, and the abdomen was insufflated with CO2 to a pressure of 15 mmHg. Under direct visualization, additional ports were placed, specifically two 5 mm Versi-step ports to the left upper quadrant, and a 5 mm Versi-Step port to the right upper quadrant. 1% lidocaine plain was used to infiltrate all port sites as well as all fascia defects. Following that, the patient was placed in a steep reverse Trendelenburg position. An additional 5 mm port was placed to the right flank for the Mediflex retractor that was used to retract the left lobe of the liver. The gastro-esophageal fat pad was opened with the ultrasonic device (underbeat, Olympus) and the anterior esophagus and hiatus were exposed. The angle of His was opened with the ultrasonic device the fundus of the stomach from any diaphragmatic and splenic attachments. I then opened the gastrocolic ligament between the transverse colon and the greater curvature of the stomach with the ultrasonic device to enter the lesser sac and facilitate the ligation of the short gastric vessels. I started at a mid-point along the greater curvature and using the Thunderbeat, all short gastric vessels were divided all the way to the angle of His until the left kelsey was completely dissected at its entirety. I then divided the gastro-colic ligament distally to a distance of about 3-4 cm proximal to the pylorus. There were extensive congenital adhesions between the pancreas, the spleen and posterior gastric wall. Especially with the spleen, the adhesions were extensive and a significant part of the posterior stomach was densely adherent to the spleen Those were lysed completely with the ultrasonic device. Adhesiolysis took approximately 60 min to complete and it required very careful and tedious dissection. This was a uniquely difficut dissection that prolonged the surgery for an additional 45 minutes.. The stomach was then divided transversely with three Endo LEWIS-45 purple and three LEWIS-60 articulating purple loads using the INSOMENIA stapler and loads. Every effort was made that the gastric sleeve had a tubular shape and an even caliber throughout. Once the sleeve resection was completed, the staple line of the gastric sleeve was reinforced with Hemoclips. There was a 3cm tumor at the posterior gastric wall. Careful resection was made to ensure that this tumor was included in the removed specimen. The tumor was marked with a suture. The resected stomach was retrieved without difficulty from the Augustin port. A gastropexy was then performed in order to prevent postoperative GERD and partial gastric volvulus. Several interrupted 2.0 Surgidac sutures were placed between the sleeve's staple line and the previously divided greater omentum and gastro-colic ligament using the Endo-Stitch device. ?An upper endoscopy was performed. There was no narrowing at the GE junction. The scope was easily advanced all the way to the pylorus which was clearly visualized. There was no narrowing anywhere and the sleeve's caliber was even throughout. The sleeve's staple line was inspected and there was no evidence of ischemia, bleeding or dehiscence. At that point the gastroscope was withdrawn from the patient?s mouth while we were decompressing the bowel and the stomach from any remaining air. I looked into the lesser sac to see how the sleeve was situating and it was situating well. There was no bleeding from the staple line, spleen, or short gastric vessels. The Mediflex retractor was removed, and the undersurface of the liver was inspected and there was no bleeding. The patient was placed in supine position. I closed the fascial defect of the 12 mm port site with a figure of eight #1 Polysorb suture. Then 30cc Ropivacaine plain with 10 mg of Dexamethasone were used to infiltrate the fascial closure as well as all skin incisions. At this point, the abdomen was deflated, all ports were removed under direct vision, and no bleeding was noted from any of the port sites. The skin incisions were irrigated with saline and were closed with 4-0 absorbable monofilament sutures. Steri-Strips and OpSites were used to cover all incisions. The patient was extubated and was transferred in stable condition to the recovery room for further care. I was present and performed all ramirez parts of the procedure. Ms. Velascoally was the radiology practitioner assistant. There were no residents to assist with this case. Jefe Coleman MD, PhD, FACS Surgeon: Maurice Coleman MD Anesthesia: local and other (TAP block) Was an Information Tech used for this Procedure?: No Information Tech: Roxann Demarco Estimated blood loss (mL): 10 IV fluids (mL): 2,500 Urine output (mL): 0 (No Garzon to record output) Pathology: other (1) Stomach, 2) gastro-esophageal fat pad, 3) gastric tumor posterior gastric wall marked with a suture) Condition: stable Disposition: PACU
--- NOTE | 2025-02-26 09:43 | PM.PNGS ---
Subjective Subjective Date of Service: 02/27/25 Interval history: Feels well. Mild incisional pain. She is tolerating phase 1 bariatric diet Physical Exam Vital Signs: Vital Signs: Last Vital Signs Temp 98 F 02/26/25 09:31 Pulse 68 02/26/25 09:31 Resp 19 02/26/25 09:31 BP 117/67 02/26/25 09:31 Pulse Ox 100 02/26/25 09:31 O2 Del Method Nasal Cannula 02/26/25 09:31 O2 Flow Rate 2 02/26/25 09:31 BMI result Body Mass Index 41.7 GI: Inspection: Yes normal to inspection and Yes incision (clean, dry and intact) Palpation (GI): Soft to palpation Extrem: Right lower extremity: normal to inspection (no calf tenderness) Left lower extremity: normal to inspection (no calf tenderness) Objective Data Active Medications Lactated Ringer's (Lr) 1,000 mls @ 999 mls/hr IV .Q1H1M [facility] Stop: 02/26/25 10:00 Last Admin: 02/26/25 08:20 Dose: 999 mls/hr Documented By: BHARATH Lactated Ringer's (Lr) 1,000 mls @ 100 mls/hr IVCONT .Q10H [facility] Stop: 02/26/25 10:59 Last Admin: 02/26/25 09:29 Dose: 100 mls/hr Documented By: BHARATH Labs 02/27/25 05:47 02/27/25 05:47 Labs: Laboratory Results - last 24 hr 02/26/25 08:56 POC Glucose 91 Procedures Date of Service Date of Service: 02/27/25 Progress Note: A&P Assessment and plan (1) Morbid obesity: Status: Acute Assessment and Plan: s/p laparoscopic sleeve gastrectomy, lysis of adhesions, resection of gastric tumor and gastropexy Doing well Will check am labs and if OK the patient will be discharged home (2) GERD (gastroesophageal reflux disease): Status: Acute (3) DJD (degenerative joint disease): Status: Acute (4) Sleep apnea: Status: Acute (5) Steatosis, liver: Status: Acute (6) Liver fibrosis: Status: Acute (7) Gastric tumor: Status: Acute (8) Congenital intra-abdominal adhesions: Status: Acute (9) S/P laparoscopic sleeve gastrectomy: Status: Acute Time Spent With Patient Time: Total time managing care of this patient today ____ minutes. Quality Stroke Does the patient have a stroke diagnosis?: No VTE Prior VTE?: No VTE Risk Level:: Surgical - moderate VTE Device Contraindication: N/A - Device Ordered VTE Drug Contraindication: Treatment Not Indicated
--- NOTE | 2025-02-26 09:48 | PC.NURSE ---
pt to the or sts feeling better nad
[2025-02-26] MEDS: ceFAZolin Sodium/Dextrose,Iso 2 GM/50 ML PIGGYBACK IV ×2 (10:00→15:42)
--- NOTE | 2025-02-26 12:40 | P.DS_ITS ---
DS: Providers Provider Date of Service: 02/27/25 Date of discharge: 02/27/25 Primary care physician: Jose Rafael George MD DS: Diagnosis Discharge Diagnosis (1) Morbid obesity: Status: Acute (2) GERD (gastroesophageal reflux disease): Status: Acute (3) DJD (degenerative joint disease): Status: Acute (4) Sleep apnea: Status: Acute (5) Steatosis, liver: Status: Acute (6) Liver fibrosis: Status: Acute (7) Gastric tumor: Status: Acute (8) Congenital intra-abdominal adhesions: Status: Acute (9) S/P laparoscopic sleeve gastrectomy: Status: Acute DS: Summary Hospital Course Hospital Course: ADMITTING DIAGNOSIS: morbid obesity, liver fibrosis, GERD, DJD, YANICK DISCHARGE DIAGNOSIS: same, s/p laparoscopic sleeve gastrectomy and gastropexy PAST SURGICAL HISTORY:? History of esophagogastroduodenoscopy (EGD) H/O colonoscopy Hx of section PROCEDURE: upper endoscopy, laparoscopic sleeve gastrectomy and gastropexy DISCHARGE SUMMARY: History of Present Illness: The patient is a?64 year-old woman with a BMI of?41.7 kg/m2 and associated co- morbidities as described above. The patient had extensive work-up, lost 27.6 lbs preoperatively and was electively scheduled for laparoscopic, possible open sleeve gastrectomy and gastropexy. Risks and complications of the surgery were discussed with the patient in advance, particularly the possibility of , pulmonary embolism, anastomotic leak, bleeding, bowel injury, GERD, cardiac, renal or pulmonary complications. The patient understood all the risks and was in agreement with the surgical plan. Hospital Course: The patient underwent laparoscopic sleeve gastrectomy with gastropexy on the day of admission. Of note, included in the surgical specimen was a 3cm tumor of the posterior gastric wall, which was marked with a suture to be analyzed by pathology. Postoperatively, the patient was transferred to the surgical floor. The patient received IV acetaminophen and IV Dilaudid for pain control. Patient was started on bariatric phase 1 diet POD #0. On postoperative day one, the patient was feeling well without nausea, vomiting, fevers, or tachycardia. The patient had some mild incisional pain and the abdomen was soft.? ? On the morning of postoperative day one, the patient was continued on 1 ounce of water or ice every half hour. During the day, the patient did fairly well, having some incisional pain, but able to ambulate adequately and to tolerate liquids well. Since the patient is doing well, we decided that the patient was ready to be discharged. The patient was given instructions to follow-up in office next week and to call the office for any fever over 101, persistent abdominal pain, nausea, vomiting, GERD, symptoms of DVT such as calf tenderness, or leg swell ing, or pulmonary embolism such as chest pain or shortness of breath.? The patient was also instructed to drink 40-60 ounces of liquids per day using the 1-ounce cups. The patient had been given prescriptions for Tylenol for pain, Zofran prn for nausea, and pantoprazole and carafate previously. The patient was encouraged to ambulate and use the incentive spirometer. The patient was allowed to shower, but no baths, and encouraged to stay active at home. All of these instructions were given to the patient personally. All questions were answered and the patient understood all instructions, the instructions were also given to the patient in print. Time Attestation Discharge Coordination Time (in mins): 30 Quality: Safe Use of Opioids Does Pt have an Active Cancer Diagnosis on the Problem List?: No Quality: Stroke Does the patient have a stroke diagnosis?: No Physical Exam Vital Signs: Vital Signs: Last Vital Signs Temp 97.8 F 02/26/25 12:20 Pulse 82 02/26/25 12:35 Resp 20 02/26/25 12:35 BP 139/80 02/26/25 12:35 Pulse Ox 95 02/26/25 12:35 O2 Del Method Nasal Cannula wit h Capnography 02/26/25 12:35 O2 Flow Rate 2 02/26/25 12:35 BMI result Body Mass Index 41.7 DS: Data Data Completed and Pending Pending studies at discharge: Pending at discharge 02/26/25 11:35 Surgical [PTH] Routine 02/26/25 12:02 Surgical [PTH] Routine Labs on day of discharge: Laboratory Results - last 24 hr 02/26/25 08:56 POC Glucose 91 Discharge Plan Discharge Patient Disposition: Home, Self-Care Referrals: Jose Rafael George MD [Primary Care Provider, Internal Medicine] - 1 Week Discharge Medications: Continued pantoprazole 40 mg tablet,delayed release (DR/EC) 40 mg PO DAILY@0630 fluticasone propionate 50 mcg/actuation spray,suspension 1 spray intranasal DAILY PRN (Reason: Allergy Symptoms) Held magnesium 250 mg tablet 250 mg PO DAILY Hold Instructions: Resume on 03/13/25. cholecalciferol (vitamin D3) 50 mcg (2,000 unit) capsule 50 mcg PO DAILY Hold Instructions: Resume on 03/13/25. No Action sucralfate 100 mg/mL suspension 10 ml PO BID ondansetron 4 mg tablet,disintegrating 4 mg PO Q6H PRN Discharge Orders: Discharge Order (Routine); Ordered 02/27/25 Ordered By: Maurice Coleman Activity on Discharge: No heavy lifting Activity Restrictions/Additional Instructions: No tub baths, sex or returning to work until discussed at first post op appointment. No alcohol, tobacco or illegal drug use. Continue to use incentive spirometer hourly while awake. Walk in home for 5- 10 minutes every 2 hours during the first week. Wear abdominal binder with activity. Follow all meal plan instructions from your bariatric surgeon. Review bariatric handbook and call with any questions. Discharge Instructions 1. Please call your doctor or come back to the emergency room should any new symptoms arise. 2. Activity: abstain from alcohol,? limited stair climbing, no bending, no driving, no exercise, no illicit substances, no lifting, no sex, no tub bath, no work. 4. Diet: follow your bariatric surgeon's recommendations for advancing diet. 5. Dressing Change/Wound Care: Your incisions are covered with waterproof dressings. You can shower with these and pat dry. Do not rub over dressings or incisions. If the area is tender, you may apply an ice pack for short intervals (no more than 20 minutes on, followed by at least 20 minutes off). Do not apply heat. Do not use creams, lotions, or topical antibiotics unless instructed to do so by your surgeon. 6. Call your doctor if: - Your temperature exceeds 101.5 F - You experience excessive pain or swelling - You have an unexpected reaction to medication - You have excessive bleeding - You experience continued vomiting/nausea - Your incision begins to separate - Your incision shows signs of infection such as increased redness, swelling, excessive pain, heat, or drainage (light blood or clear fluid is normal) General instructions: No lifting greater than 10 lbs for the next 6 weeks[address] driving within 24 hours of taking narcotic pain medications. If you do not move your bowels in the next 2 days, please take milk of magnesia over the counter. Please follow the post op diet and do not advance your diet until instructed by your surgeon or until you are seen in the office in about 1 week. Please walk around your home every hour or two to prevent blood clots from forming in your legs. You do not need to wake from sleeping to walk. Please sleep in a bed or couch to prevent kinking at the hips and knees. Please take your incentive spirometer (your lung document control clerk) home with you and use it for the next few days to prevent pneumonias. You may shower; no hot tubs, baths or swimming pools. Please make sure you are consuming 40-60 ounces of total fluids per day. Avoid all carbonation. Please call the office with any questions or concerns such as increasing abdo jennifer pain, fever, chills, shortness of breath, chest pain, leg pain or swelling, or redness or drainage from your incisions. Do not hesitate to contact the office with any questions at . The patient's medical history has been reviewed and they are considered low risk for post op DVT and therefore DVT prophylaxis is not considered necessary. Travel after surgery was reviewed. The patient has not disclosed any travel plans during the first 30 days after surgery and they have been advised that within the first 30 days after surgery any bus, plane, train or car travel over 2 hours in duration is contraindicated due to the possibility of developing blood clots from immobility. Any travel, needs to include periods of ambulation of 10 minutes in duration every 2 hours.? The patient was instructed to discuss any plans for travel during this period with their bariatric surgeon. Print Language: Brazilian Discharge Date/Time: 02/27/25 10:14
[2025-02-26 13:08] LABS: Hematocrit 37.7 % (37.0-47.0); Hemoglobin 12.5 g/dl (12.0-16.0)
[2025-02-26 13:18] LABS: Anion Gap 15 (12-20); Blood Urea Nitrogen 12 mg/dL (9-16); Calcium 9.2 mg/dL (8.4-10.2); Carbon Dioxide 22 mmol/L (22-29); Chloride 106 mmol/L (96-108); Creatinine Clr Calc Pharmacy 101.2; Estimated Glomerular Filt Rate > 60; Glucose Random 133 mg/dL (60-115); Potassium 4.2 mmol/L (3.3-5.1); Sodium 139 mmol/L (135-145)
--- NOTE | 2025-02-26 14:57 | PHA.MEDREC ---
Addendum entered by Ton Avendaño PharmD 02/26/25 15:20: reviewed Original Note: Pharmacy Consult ? Medication Reconciliation Pharmacy reviewed med rec done by nursing. Spoke with pt and she confirmed her medications. Pt confirmed she is going to start the Ondansetron and Sucralfate oral solution when she gets home from our facility; I took them off the med rec.
[2025-02-26] MEDS: Metoclopramide HCl 10 MG/2 ML VIAL IVPUSH (15:28)
[2025-02-26] MEDS: Acetaminophen 1,000 MG/100 ML PIGGYBACK 16.7 MG IV ×2 (16:39→22:38)
[2025-02-26] MEDS: Famotidine/PF 20 MG/2 ML VIAL IVPUSH (21:01)
[2025-02-26] MEDS: 0.9 % Sodium Chloride Flush 3 ML SYRINGE IVFLUSH (21:07)
[2025-02-27] MEDS: Lactated Ringers 1,000 ML 100 ML IVCONT (00:19)
[2025-02-27 03:25] VITALS: BP 110/68; PULSE 69; RESP 16; TEMP 36; O2SAT 94
[2025-02-27] MEDS: ondansetron HCL 4 MG/2 ML VIAL IVPUSH (04:05)
[2025-02-27] MEDS: Acetaminophen 1,000 MG/100 ML PIGGYBACK 16.7 MG IV (04:42)
[2025-02-27 06:24] LABS: Basophils Percent Auto 0.2 % (0-2); Hematocrit 37.6 % (37.0-47.0); Hemoglobin 12.5 g/dl (12.0-16.0); Imm Gran Abs Auto 0.04 X10*3/uL (0.00-0.03); Imm Gran Pct Auto 0.4 % (0.0-0.4); Lymphocytes Absolute Auto 0.5 X10*3/uL (1.2-4.9); MANUAL DIFF FLAG SCAN; Mean Corpuscular HGB Conc 33.2 g/dl (31.0-35.0); Mean Corpuscular Hemoglobin 29.2 pg (27.0-33.0); Mean Corpuscular Volume 87.9 fL (80.0-98.0); Mean Platelet Volume 11.7 fL (9.4-12.3); Monocytes Absolute Auto 0.3 X10*3/uL (0.1-1.2); Neutrophils Absolute Auto 8.9 x10*3/uL (2.0-8.3); Neutrophils Percent Auto 91.4 % (45-73); Platelet Count 197 X10*3/uL (160-400); Red Blood Count 4.28 X10*6/uL (4.20-5.50); Red Cell Distribution Width 13.1 % (11.0-16.0); SCAN SMEAR FLAG 1; White Blood Count 9.8 X10*3/uL (4.8-10.8)
[2025-02-27 06:30] LABS: Anion Gap 15 (12-20); Blood Urea Nitrogen 11 mg/dL (9-16); Carbon Dioxide 20 mmol/L (22-29); Chloride 106 mmol/L (96-108); Creatinine Clr Calc Pharmacy 107.4; Estimated Glomerular Filt Rate > 60; Glucose Random 145 mg/dL (60-115); Potassium 4.1 mmol/L (3.3-5.1); Sodium 137 mmol/L (135-145)
[2025-02-27 06:48] LABS: SLIDE REVIEW VERIFIED
[2025-02-27 07:47] VITALS: BP 112/64; PULSE 75; RESP 18; TEMP 36.6; O2SAT 98
--- NOTE | 2025-02-27 08:30 | HO.POSTANES ---
Post Anesthesia Evaluation Post Anesthesia Evaluation Date of Service: 02/27/25 Vital Signs: Vital Signs Temp Pulse Resp BP Pulse Ox O2 Del Method 02/27/25 07:47 97.8 F 75 18 112/64 98 Room Air 02/27/25 03:25 96.8 F 69 16 110/68 94 Room Air 02/26/25 23:10 18 Anesthesia: General Endotracheal-GETA and General Mental Status: Awake Pain Control: Satisfactory Nausea/Vomiting: None Hydration: Adequate Anesthesia-Related Issues: No Anes. Related Issues
[2025-02-27] MEDS: Famotidine/PF 20 MG/2 ML VIAL IVPUSH (08:47)
[2025-02-27 08:56] VITALS: BP 106/59; PULSE 59; RESP 18; TEMP 36.1; O2SAT 96
--- NOTE | 2025-02-27 09:00 | MHC.CM.PN ---
pt dcd home self care
[2025-02-27] MEDS: Metoclopramide HCl 10 MG/2 ML VIAL IVPUSH (09:37)
== END 2025-02-27 10:14 | disposition home or self-care (01) ==
LOC: HO.SSS 12:40 → HO.S3 13:45
PROVIDERS: Physician Assistant Surgical; PCP Internal Medicine; Visit Provider Surgery
PROC: (CPT 43845; principal; 2025-02-26 10:20)
DX: E66.01 Morbid (severe) obesity due to excess calories (principal); Z68.41 Body mass index [BMI] 40.0-44.9, adult; C49.A2 Gastrointestinal stromal tumor of stomach; Q43.3 Congenital malformations of intestinal fixation; K21.9 Gastro-esophageal reflux disease without esophagitis; K76.0 Fatty (change of) liver, not elsewhere classified; K74.00 Hepatic fibrosis, unspecified; G47.33 Obstructive sleep apnea (adult) (pediatric); M19.90 Unspecified osteoarthritis, unspecified site; Z79.899 Other long term (current) drug therapy; Z88.5 Allergy status to narcotic agent
CPT/HCPCS: 43775; 43659; 49329; 36415; 80048; 80053; 80061; 82306; 82607; 82728; 82947; 83036; 83525; 83540; 84425; 84443; 84590; 84630; 85014; 85018; 85025; 85610; 85730; 86140; 86850; 86900; 86901; 88304; 88305; 88307; 88341; 88342; A4649; C9145; J0131; J0690; J1100; J1308; J1596; J2003; J2250; J2371; J2405; J2704; J2765; J2795; J3010; J7120

== ENCOUNTER → 2025-02-26 07:45 | Outpatient (BNV) | payer OTHER, SELFPAY | PROVIDERS: PCP Internal Medicine; Visit Provider Surgery | DX: E66.01 Morbid (severe) obesity due to excess calories (principal); Z68.38 Body mass index [BMI] 38.0-38.9, adult; Z98.84 Bariatric surgery status | CPT/HCPCS: 22902; 43659; 43775; 99024 ==

== ENCOUNTER 2025-03-06 08:48 | Outpatient (AMB) | payer OTHER, SELFPAY ==
--- NOTE | 2025-03-06 08:54 | MHC.OFFVISWM ---
VS Expanded 03/06/25 09:27 BP 131/72 Blood Pressure Location Rt brachial Blood Pressure Position Sitting Pulse 66 Pulse Source Pulse Oximeter Temp 97.1 F Temperature Source Temporal Artery Scan Pulse Oximetry 97 Oxygen Delivery Method Room Air Height 5 ft 4 in Weight 235 lb 9.6 oz BMI 40.4 Body Fat % 45.3 Body Fat Mass 106.8 Fat Free Mass 128.8 Visceral Fat Rating 15.0 Body Water % 38.8 Body Water Mass 91.2 Muscle Mass/Score 122.4 Basal Metabolic Rate/Score 1,796 Comment laying Bp 139/81 standing bp 115/68 Intake Visit Reasons: (OV) PO LSG 02/26/25 Allergies oxycodone (From Percocet) Adverse Reaction (Intermediate, Verified 03/06/25 09:30) Nausea and Vomiting propoxyphene (From Darvocet-N) Adverse Reaction (Intermediate, Verified 03/06/25 09:30) Nausea and Vomiting HPI Comments Details: Patient is a 64-year-old female who is approximately 8 days post sleeve gastrectomy performed on 02/26/2025. Tolerating three 8 oz portions of protein 2.0 and a total of 40 oz per day. She has complained of several episodes of lightheadedness with 1 episode of vomiting yesterday. She has had several loose stools. She also reports a positional vertigo when rolling onto her left side. [facility] Medical History (Updated 02/26/25 @ 12:34 by Maurice Coleman MD) GERD (gastroesophageal reflux disease) DJD (degenerative joint disease) Sleep apnea Morbid obesity Surgical History (Updated 03/06/25 @ 09:31 by Zari Evans CMA) S/P laparoscopic sleeve gastrectomy History of esophagogastroduodenoscopy (EGD) (02/04/25) H/O colonoscopy Hx of section Family History Paternal Grandmother Pancreatic cancer Maternal Grandfather Pancreatic cancer Sister Cervical cancer Sister Breast cancer Mother Breast cancer Social History (Updated 02/19/25 @ 11:46 by Lanie Hathaway RN) Household Members: None Household Members Other:: son at college Housing: House Are you a primary social worker palliative care to a significant other at home: No Do you presently have visiting nurse or other home services: No Alcohol intake: current Alcohol intake frequency: does not drink Patient Tobacco Use Status: Never used Tobacco Physical Exam Resp Effort & Inspection: normal respiratory effort Auscultation: clear to auscultation bilaterally Cardio Rate: regular rate Rhythm: regular rhythm GI Inspection: Yes incision (Clean, dry, intact.) Assessment & Plan Assessment & Plan (1) S/P laparoscopic sleeve gastrectomy: Code(s): Z98.84 - Bariatric surgery status Category: Surgical Plan: POD 8 s/p LSG on 02/26/[address] Coleman Weight loss prior to surgery was 28.2 pounds or 10.2 % TBWL. Original weight on 12/31/2024 was 275.4 pounds and op weight was 247.2 pounds. Be sure to text Dr Coleman exactly 1 week after surgery your weight from your home scale so he can adjust your meal plan. Continue meal plan until f/u denny Velasquez in 2 weeks May shower, no submersion in bath for another week Continue abdominal binder with activity and exercise for the next 2 weeks. Exercise prior to surgery was stationary bike and treadmill and may resume No abdominal exercises for 6 weeks post operatively Will be emailed link to post op video for review Reminded of the pace of drinking, 2 mL per minute, 1 oz/15 min. Given patient's complaints of lightheadedness, we will arrange for transfusion 2 L IV fluids. Check Chem 7 for possible hypokalemia. Give IV folic acid and thiamine and IM B12. Patient will be sent to the emergency room for these interventions. Report was given to attending physician.
[2025-03-06 09:27] VITALS: BP 131/72; PULSE 66; TEMP 36.2; O2SAT 97; BMI 40.4
== END 2025-03-06 10:13 | disposition home or self-care (01) ==
LOC: HO.HBS 08:48
PROVIDERS: PCP Internal Medicine; Visit Provider Physician Assistant Surgical
DX: Z98.84 Bariatric surgery status (principal)
CPT/HCPCS: 99024

== ENCOUNTER 2025-03-06 10:11 | Emergency (ER) | payer OTHER, SELFPAY ==
[2025-03-06 10:13] VITALS: BP 110/66; PULSE 66; RESP 16; TEMP 36.4; O2SAT 97; BMI 41.0
[2025-03-06 10:29] LABS: MANUAL DIFF FLAG NO
[2025-03-06 10:38] LABS: Basophils Percent Auto 0.3 % (0-2); Eosinophils Absolute Auto 0.1 X10*3/uL (0.0-0.4); Eosinophils Percent Auto 0.8 % (0-4); Hematocrit 37.7 % (37.0-47.0); Hemoglobin 13.4 g/dl (12.0-16.0); Imm Gran Abs Auto 0.04 X10*3/uL (0.00-0.03); Imm Gran Pct Auto 0.4 % (0.0-0.4); Lymphocytes Percent Auto 10.5 % (20-40); Mean Corpuscular HGB Conc 35.5 g/dl (31.0-35.0); Mean Corpuscular Hemoglobin 29.3 pg (27.0-33.0); Mean Corpuscular Volume 82.3 fL (80.0-98.0); Mean Platelet Volume 10.6 fL (9.4-12.3); Monocytes Absolute Auto 0.6 X10*3/uL (0.1-1.2); Monocytes Percent Auto 6.1 % (2-11); Neutrophils Percent Auto 81.9 % (45-73); Platelet Count 257 X10*3/uL (160-400); Red Blood Count 4.58 X10*6/uL (4.20-5.50); White Blood Count 9.8 X10*3/uL (4.8-10.8)
[2025-03-06 10:45] LABS: Alanine Aminotransferase 24 U/L (0-31); Albumin Level 4.4 g/dL (3.5-5.0); Alkaline Phosphatase 85 U/L (39-117); Anion Gap 16 (12-20); Aspartate Amino Transferase 21 U/L (5-31); Blood Urea Nitrogen 10 mg/dL (9-16); Calcium 9.6 mg/dL (8.4-10.2); Carbon Dioxide 23 mmol/L (22-29); Chloride 101 mmol/L (96-108); Creatinine Clr Calc Pharmacy 98.9; Estimated Glomerular Filt Rate > 60; Glucose Random 106 mg/dL (60-115); Potassium 3.4 mmol/L (3.3-5.1); Sodium 137 mmol/L (135-145); Total Protein 7.5 g/dL (6.5-8.0)
[2025-03-06 11:00] VITALS: BP 120/52; PULSE 65; RESP 12; O2SAT 98
--- NOTE | 2025-03-06 11:05 | PC.NURSE ---
Pt roomed changed and placed on full monitor- VSS NSR no ectopy on monitor. Denies palpitations states dizziness if turning in bed but not when ambulating N/V/D since Sunday.
--- NOTE | 2025-03-06 11:19 | ED.GENADULT ---
HPI - General Adult General Chief complaint: Nausea/Vomiting/Diarrhea Stated complaint: Dizziness, Weakness, Questionable Dehydration Time Seen by Provider: 03/06/25 11:00 Source: patient, RN notes reviewed and old records reviewed Mode of arrival: ambulatory Limitations: no limitations History of Present Illness ED Provider: Cecille HPI narrative: 64-year-old female presents for evaluation of nausea vomiting and intermittent diarrhea. The patient is day 8 status post gastric sleeve She was seen in the office by bariatric so this morning, Ron Duncan evaluated her and felt that she should come to the ER for IV fluids. The patient is able to tolerate small sips of water but vomited twice this morning She denies any abdominal pain, fevers, chills No other complaints or concerns at this time Related Data Home Medications ?Medication ?Instructions ?Recorded ?Confirmed cholecalciferol (vitamin D3) 50 50 mcg PO DAILY 12/22/24 02/19/25 mcg (2,000 unit) capsule Held on 02/27/25. Instructions: Resume on 03/13/25. fluticasone propionate 50 1 spray intranasal DAILY PRN 12/22/24 02/26/25 mcg/actuation nasal Allergy Symptoms spray,suspension magnesium 250 mg tablet 250 mg PO DAILY 12/22/24 02/19/25 Held on 02/27/25. Instructions: Resume on 03/13/25. pantoprazole 40 mg tablet,delayed 40 mg PO DAILY@0630 12/22/24 02/26/25 release ondansetron 4 mg disintegrating 4 mg PO Q6H PRN 03/06/25 tablet sucralfate 100 mg/mL oral 10 ml PO BID 03/06/25 suspension Allergies Allergy/AdvReac Type Severity Reaction Status Date / Time oxycodone (From Percocet) AdvReac Intermediate Nausea and Verified 03/06/25 10:21 Vomiting propoxyphene (From AdvReac Intermediate Nausea and Verified 03/06/25 10:21 Darvocet-N) Vomiting Review of Systems Constitutional: Constitutional: Denies body ache(s), Denies chills, Denies fever(s) and Denies headache(s) Eyes: Eyes: Denies blurry vision and Denies irritation ENT: Denies vertigo, Reports dizziness and Denies headache(s) Cardiovascular: Cardiovascular: Denies chest pain and Denies dyspnea on exertion Respiratory: Respiratory: Denies cough and Denies dyspnea on exertion Gastrointestinal: Gastrointestinal: Denies abdominal pain, Reports diarrhea, Reports loose stools, Reports nausea and Reports vomiting Musculoskeletal: Musculoskeletal: Denies back pain Neurologic: Denies vertigo, Reports dizziness and Denies headache(s) [facility] Past Medical History Medical History (Updated 03/06/25 @ 11:20 by Roberto Oden) GERD (gastroesophageal reflux disease) DJD (degenerative joint disease) Sleep apnea Morbid obesity Surgical History (Updated 03/06/25 @ 09:31 by Zari Evans CMA) S/P laparoscopic sleeve gastrectomy History of esophagogastroduodenoscopy (EGD) (02/04/25) H/O colonoscopy Hx of section Family History Family History Paternal Grandmother Pancreatic cancer Maternal Grandfather Pancreatic cancer Sister Cervical cancer Sister Breast cancer Mother Breast cancer Social History Social History Household Members: None Household Members Other:: son at college Housing: House Are you a primary group care worker to a significant other at home: No Do you presently have visiting nurse or other home services: No Alcohol intake: current Alcohol intake frequency: holidays/special occasions only Alcohol type: wine Patient Tobacco Use Status: Never used Tobacco Smoked in Last 30 Days: No Use of substances other than those prescribed or required for medical reasons: No Advance Directives: No Advance Directives Information Provided: Yes Physical Exam ED Vital Signs: Vital Signs - 24 hr 03/06/25 10:13 03/06/25 11:00 Temperature 97.6 F Pulse Rate 66 65 Respiratory Rate 16 12 Blood Pressure 110/66 120/52 L Pulse Oximetry 97 98 Oxygen Delivery Method Room Air Room Air BMI result Body Mass Index 41.0 Const General: healthy appearing, comfortable, no acute distress, alert and awake Nutritional Appearance: well nourished Orientation/consciousness: patient oriented x3 HENMT Head: Yes normocephalic and Yes atraumatic Throat: Yes posterior oropharynx normal Eyes Eyelids: Yes eyelids normal Conjunctivae: conjunctivae normal Sclerae: sclerae normal Corneas: corneas normal Pupils: Equal, round and reactive pupils present EOM: EOMs intact bilaterally Neck Neck: Yes full ROM Resp Effort & Inspection: normal respiratory effort, able to speak in complete sentences and not labored GI Inspection: No distended Palpation (GI): Soft to palpation, not firm, nontender, no guarding and not rigid Skin General skin exam: elasticity normal Neuro General: patient oriented x3 Cranial nerves: Yes Equal, round and reactive pupils present and Yes Bilaterally intact EOM present Cognition (Neuro): normal cognition Extrem Other: Moving all extremities well without any obvious deformities Medications Administered Generic Name Dose Route Start Last Admin Trade Name Freq PRN Reason Stop Dose Admin Lactated Ringer's 1,000 mls @ 999 mls/hr 03/06/25 11:15 03/06/25 11:25 Lr IV 03/06/25 13:15 999 mls/hr .Q1H1M AGUILA Administration Folic Acid 1 mg/ Sodium 50.2 mls @ 100.4 mls/hr 03/06/25 11:15 03/06/25 11:32 Chloride IV 03/06/25 11:44 100.4 mls/hr ONCE ONE Administration Discontinued Medications Generic Name Dose Route Start Last Admin Trade Name Freq PRN Reason Stop Dose Admin Cyanocobalamin 1,000 mcg 03/06/25 11:15 03/06/25 11:33 Cyanocobalamin (Vitamin B-12) 1,000 Mcg/Ml Vial IM 03/06/25 11:16 1,000 mcg ONCE ONE Administration Ondansetron HCl 4 mg 03/06/25 11:18 03/06/25 11:29 Ondansetron Hcl 4 Mg/2 Ml Vial IVPUSH 03/06/25 11:19 4 mg ONCE ONE Administration Medical Decision Making Medical Decision Making [facility] Narrative: 64-year-old female presents for evaluation of weakness, nausea vomiting and the patient is a. She is quite well appearing, vital signs are stable. Abdomen is nondistended, nontender. Less likely infectious process as she has no pain, no fever and no leukocytosis. I suspect her symptoms are a complication of a recent gastric sleeve. I did touch base with bariatric, Ron duncan who recommended treating the patient IV fluids, B12, folic acid and thiamine and the patient can be discharged. She is passing gas and having loose stools, less likely to be a bowel obstruction Differential Diagnosis Differential Diagnoses: The differential diagnosis associated with the presentation includes Dehydration Metabolic abnormality Orthostasis Dehydration Gastric sleeve complication Bowel obstructions Admission/Observation Consideration of admission/observation: Escalation of care including admission/observation considered Lab Data MDM Lab Attestation statement: I reviewed the patient's lab results. No leukocytosis or anemia. Normal platelet count no electrolyte abnormalities 03/06/25 10:24 03/06/25 10:24 Labs: Lab Results 03/06/25 Range/Units 10:24 WBC 9.8 (4.8-10.8) X10*3/uL RBC 4.58 (4.20-5.50) X10*6/uL Hgb 13.4 (12.0-16.0) g/dl Hct 37.7 (37.0-47.0) % MCV 82.3 (80.0-98.0) fL MCH 29.3 (27.0-33.0) pg MCHC 35.5 H (31.0-35.0) g/dl RDW 13.0 (11.0-16.0) % Plt Count 257 D (160-400) X10*3/uL MPV 10.6 (9.4-12.3) fL Immature Gran % (Auto) 0.4 (0.0-0.4) % Neut % (Auto) 81.9 H (45-73) % Lymph % (Auto) 10.5 L (20-40) % [place] % (Auto) 6.1 (2-11) % Eos % (Auto) 0.8 (0-4) % Baso % (Auto) 0.3 (0-2) % Lymph # (Auto) 1.0 L (1.2-4.9) X10*3/uL [place] # (Auto) 0.6 (0.1-1.2) X10*3/uL Eos # (Auto) 0.1 (0.0-0.4) X10*3/uL Baso # (Auto) 0.0 (0.0-0.2) X10*3/uL Abs Immat Gran (auto) 0.04 H (0.00-0.03) X10*3/uL Absolute Neuts (auto) 8.0 (2.0-8.3) x10*3/uL Absolute Nucleated RBC 0.000 (0.0-0.012) X10*3/uL Nucleated RBC % (auto) 0.0 (0.0-0.2) /100WBC Sodium 137 (135-145) mmol/L Potassium 3.4 (3.3-5.1) mmol/L Chloride 101 (96-108) mmol/L Carbon Dioxide 23 (22-29) mmol/L Anion Gap 16 (12-20) BUN 10 (9-16) mg/dL Creatinine 0.70 (0.5-1.4) mg/dL Estim Creat Clear Calc 98.9 Estimated GFR > 60 Random Glucose 106 (60-115) mg/dL Calcium 9.6 D (8.4-10.2) mg/dL Magnesium 2.0 (1.6-2.6) mg/dL Total Bilirubin 1.0 (0.0-1.0) mg/dL AST 21 (5-31) U/L ALT 24 (0-31) U/L Alkaline Phosphatase 85 (39-117) U/L Total Protein 7.5 (6.5-8.0) g/dL Albumin 4.4 (3.5-5.0) g/dL Discharge Plan Discharge Clinical Impression: Vomiting Patient Disposition: Home, Self-Care Instructions: Acute Nausea and Vomiting (ED) Additional Instructions: You were given IV fluids, vitamin B12, folic acid and thiamine. Follow-up with bariatric as planned. Return for new or worsening symptoms Prescriptions: No Action sucralfate 100 mg/mL suspension 10 ml PO BID ondansetron 4 mg tablet,disintegrating 4 mg PO Q6H PRN pantoprazole 40 mg tablet,delayed release (DR/EC) 40 mg PO DAILY@0630 magnesium 250 mg tablet 250 mg PO DAILY cholecalciferol (vitamin D3) 50 mcg (2,000 unit) capsule 50 mcg PO DAILY fluticasone propionate 50 mcg/actuation spray,suspension 1 spray intranasal DAILY PRN (Reason: Allergy Symptoms) Print Language: Libyan
[2025-03-06] MEDS: Lactated Ringers 1,000 ML 999 ML IV ×2 (11:25→13:05)
[2025-03-06] MEDS: ondansetron HCL 4 MG/2 ML VIAL IVPUSH (11:29)
[2025-03-06] MEDS: Folic Acid 1 MG in 0.9 % Sodium Chloride 50 ML 100.4 MG IV (11:32)
[2025-03-06] MEDS: Cyanocobalamin (Vitamin B-12) 1,000 MCG/ML VIAL 1000 MCG IM (11:33)
[2025-03-06] MEDS: Thiamine HCL 500 MG in 0.9 % Sodium Chloride 100 ML 210 MG IV (12:12)
[2025-03-06 13:08] VITALS: BP 126/73; PULSE 58; RESP 15; O2SAT 100
[2025-03-06 13:38] VITALS: BP 126/73; PULSE 58; RESP 15; TEMP 36.5; O2SAT 100
== END 2025-03-06 13:41 | disposition home or self-care (01) ==
PROVIDERS: Physician Assistant Medical; Emergency Provider Emergency Medicine; PCP Internal Medicine Hematology & Oncology
DX: R11.2 Nausea with vomiting, unspecified (principal); Z98.84 Bariatric surgery status
CPT/HCPCS: 36415; 80053; 83735; 85025; 96361; 96372; 96374; 96375; 99284; J1808; J2405; J3411; J3420; J7120

== ENCOUNTER 2025-03-27 11:31 | Outpatient (AMB) | payer OTHER, SELFPAY ==
--- NOTE | 2025-03-27 11:00 | A.OFFWM_ITS ---
Intake Intake Visit Reasons: TV PO LSG 02/26/25 Allergies oxycodone (From Percocet) Adverse Reaction (Intermediate, Verified 03/06/25 10:21) Nausea and Vomiting propoxyphene (From Darvocet-N) Adverse Reaction (Intermediate, Verified 03/06/25 10:21) Nausea and Vomiting PFSH Medical History (Updated 03/14/25 @ 00:01 by Background Daemon) GERD (gastroesophageal reflux disease) DJD (degenerative joint disease) Sleep apnea Morbid obesity Surgical History (Updated 03/14/25 @ 00:01 by Background Daemon) S/P laparoscopic sleeve gastrectomy History of esophagogastroduodenoscopy (EGD) (02/04/25) H/O colonoscopy Hx of section Family History Paternal Grandmother Pancreatic cancer Maternal Grandfather Pancreatic cancer Sister Cervical cancer Sister Breast cancer Mother Breast cancer Social History Household Members: None Household Members Other:: son at college Housing: House Are you a primary customer care coordinator to a significant other at home: No Do you presently have visiting nurse or other home services: No 75 years or older and lives alone: No Alcohol intake: current Alcohol intake frequency: holidays/special occasions only Alcohol type: wine Patient Tobacco Use Status: Never used Tobacco Behavioral Health Assessment Weight Management Therapy Therapy Notes Details Subjective: The patient underwent weight loss surgery on February 26, 2025. Initially, the recovery process was challenging during the first couple of weeks, but the patient is now experiencing improvement. The patient's mood is reported as good. She notes that her sons and work friends have been supportive throughout her recovery. Although she denies feeling hungry, she expresses a desire to experience the taste of food and has noticed an increase in food-related thoughts, especially when at work and surrounded by others who are eating. Objective: The patient presents for a behavioral health post-operative follow-up visit. A guided emotional check-in was conducted to assess her current functioning, recovery, mood, and emotional state. Psychoeducation was provided on the emotional and psychological adjustments commonly experienced after bariatric surgery. We also focused on distinguishing between hunger and cravings or food thoughts, exploring possible reasons for these experiences, and strategies to work on her mindset. Emphasis was placed on becoming mindful of her physical and mental needs during these times while staying on track. The PHQ-9 was administered to screen for symptoms of depression. The importance of adhering to the Weight Management Program (WMP) providers' instructions was emphasized, including the pace of drinking and following the meal and exercise plan. Tips and recommendations for long-term success were also discussed. Assessment/Response: * Mental status: WNL * Risk reported/identified: None Food/Weight/Diet Expectations of change PT started the program on 12/31/2024 at 275Lbs, and she would like to at least reach 180Lbs. Weight as of 01/22/2025: 264 lbs Weight as of 02/10/2025: 253Lbs Day of surgery 02/26/2025: PO weight 03/26/2025: 226Lbs PT is implementing the following: Current meal plan: protein, water, and 1 bar. Exercise plan: stationary bike. Daily. Scale: yes. Communication with provider: . Questionnaires PHQ-9 Over the last 2 weeks, how often have you been bothered by any of the following problems? 1. Little interest or pleasure in doing things: not at all 2. Feeling down, depressed, or hopeless: not at all 3. Trouble falling or staying asleep, or sleeping too much: not at all 4. Feeling tired or having little energy: not at all 5. Poor appetite or overeating: not at all 6. Feeling bad about yourself - or that you are a failure or have let yourself or your family down: not at all 7. Trouble concentrating on things, such as reading the newspaper or watching television: not at all 8. Moving or speaking so slowly that other people could have noticed. Or the opposite - being so fidgety or restless that you have been moving around a lot more than usual: not at all 9. Thoughts that you would be better off or of hurting yourself in some way: not at all Total score: 0 Depression Screening Interpretation: Negative Depression Screening Done: Yes 39808 - PHQ-9 Billing: Yes Source: Developed by Drs. Aníbal Loza, Roxie Lomeli, Wei Huizar and colleagues, with an educational perla from [employer]. Assessment & Plan Assessment & Plan (1) Adjustment disorder: Code(s): F43.20 - Adjustment disorder, unspecified (2) S/P laparoscopic sleeve gastrectomy: Code(s): Z98.84 - Bariatric surgery status Plan No safety concerns or issues were identified that would necessitate behavioral health monitoring. The patient declined further visits but is aware of the available behavioral health support if needed in the future. Telehealth Telehealth Telehealth Platform: Telephone Location of provider rendering services: practice address Location of patient: other ([place]. [place]) Patient Identification confirmed using: Name, : Yes Telehealth method: voice only Patient verbally consented to treatment: Yes Patient verbally consented to billing insurance company: Yes Patient informed of any privacy concerns related to visit: Yes Minutes spent on Phone/Video with Pt.: 25 Coding Level of Care Code Established Pt Tele Psytx 30 mins (92194) Patient Type Established Diagnoses Adjustment disorder F43.20 S/P laparoscopic sleeve gastrectomy Z98.84 Additional Codes PHQ-9 - 40448 - PHQ-9 Billing: Yes ([id number]) Time Spent (min) 25
--- OUTSIDE RECORDS SUMMARY | 2025-03-27 11:56 | XMS_ITS | Clinical Summary ---
[facility] Address [address] [place] [address] Phone Care Team Providers Care Sales Advisory Manager Name Role Phone Jose Rafael George MD Primary Care Provider [phone] Allergies Active Allergy Reactions Criticality Noted Date Comments Oxycodone Nausea Only 10/23/2024 Medications fluticasone propionate (FLONASE) 50 mcg/actuation nasal spray Administer 1 spray into each nostril 1 (one) time each day. 2 Sprays by Each Nare route daily for 360 days. - Each Nare 15.8 mL 5 Active pantoprazole (PROTONIX) 40 mg EC tablet TAKE 1 TABLET BY MOUTH EVERY DAY 90 tablet 1 5 Active Active Problems Problem Noted Date Diagnosed Date Nausea and vomiting 10/23/2024 Current moderate episode of major depressive disorder ([facility] V24, [facility] V28) 08/10/2023 GERD (gastroesophageal reflux disease) 2 Hypertension 07/07/2022 Obesity 07/07/2022 Osteoarthritis 07/07/2022 Encounters Date Type Department Care Team Description 01/13/2025 3:30 PM EDT Office Visit Internal Medicine - [address] [phone] Jose Rafael George MD Class 3 severe obesity due to excess calories without serious comorbidity with body mass index (BMI) of 45.0 to 49.9 in adult ([facility] V24, [facility] V28) (Primary Dx); Gastroesophageal reflux disease without [...] care for your loved ones. For example, children's author or elderly care for an older adult? [...] 01/13/2025 3:39 PM EDT Plan of Treatment Health Maintenance Due Date Last Done Comments Breast Cancer Screening 1960 Pneumococcal Vaccine: 50+ Years (1 of 1 - PCV) 2011 Zoster Vaccines (1 of 2) 2011 RSV Immunization Adult Patients (1 - Risk 60-74 years 1-dose series) 2021 HIV Screening 08/20/2022 COVID-19 Vaccine ( - season) 2024 09/08/2021, 01/20/2021, 12/23/2020 Influenza Vaccine (#1) 2025 , 06/28/2023, 06/11/2023, Additional history exists Hypertension/CHF/CAD Annual BMP Blood Test 10/24/2025 10/24/2024, 10/23/2024, 03/21/2024, Additional history exists Cervical Cancer Screening: Pap Smear 11/22/2025 11/22/2022 Depression Screening 01/12/2026 01/12/2025 Social Influencers of Health Screening 01/12/2026 01/12/2025 Cholesterol Screening (Lipid Panel) 10/24/2029 10/24/2024, 03/21/2024, 03/21/2024 DTaP,Tdap,and Td Vaccines (2 - Td or Tdap) 11/16/2029 11/17/2019 Colorectal Cancer Screening: Colonoscopy 10/26/2031 10/26/2021 Hepatitis C Screening Completed 04/19/2023 HIB Vaccines Aged Out No longer eligi [...] DIRECT LDL Add-On 10/24/2024 6:53 AM EST HM HEPATITIS C SCREENING Routine 04/19/2023 PAP SMEAR [...] mg/dL LAB CHEMISTRY METHOD 10/24/2024 7:56 AM [facility] Triglycerides 69 0 - 150 mg/dL LAB CHEMISTRY METHOD 10/24/2024 7:56 AM [facility] HDL 69 >=40 mg/dL LAB CHEMISTRY METHOD 10/24/2024 7:56 AM [facility] LDL Calculated 75 0 - 100 mg/dL LAB CHEMISTRY METHOD 10/24/2024 7:56 AM [facility] VLDL Cholesterol Antolin 13.8 mg/dL LAB CHEMISTRY METHOD 10/24/2024 7:56 AM [facility] Non HDL Chol. (LDL+VLDL) 89 <145 mg/dL LAB CHEMISTRY METHOD 10/24/2024 7:56 AM [facility] Chol/HDL Ratio 2.3 0.0 - 4.4 LAB CHEMISTRY METHOD 10/24/2024 7:56 AM [facility] Blood Venous blood specimen / Unknown Venipuncture / Unknown 10/24/2024 6:53 AM EST 10/24/2024 7:17 AM EST us Julius Crespo MD LAB BLOOD ORDERABLES Final Res ult [facility] [address] [place] [address], [place] [phone] * (ABNORMAL) Basic metabolic panel (10/24/2024 6:53 AM EST) Sodium 141 133 - 145 mmol/L LAB CHEMISTRY METHOD 10/24/2024 7:56 AM EST [facility] Potassium 3.7 3.5 - 5.5 mmol/L LAB CHEMISTRY METHOD 10/24/2024 7:56 AM [facility] Chloride 111(H) 96 - 110 mmol/L LAB CHEMISTRY METHOD 10/24/2024 7:56 AM [facility] CO2 26 21 - 32 mmol/L LAB CHEMISTRY METHOD 10/24/2024 7:56 AM [facility] Anion Gap 4 3 - 11 LAB CHEMISTRY METHOD 10/24/2024 7:56 AM [facility] Glucose 104(H) 70 - 100 mg/dL LAB CHEMISTRY METHOD 10/24/2024 7:56 AM [facility] BUN 10 5 - 25 mg/dL LAB CHEMISTRY METHOD 10/24/2024 7:56 AM [facility] Creatinine 0.71 0.50 - 1.10 mg/dL LAB CHEMISTRY METHOD 10/24/2024 7:56 AM [facility] eGFR 96 >=60 mL/min/1. 73m2 LAB CHEMISTRY METHOD 10/24/2024 7:56 AM [facility] Comment:Calculation based on the Chronic Kidney Disease Epidemiology Collaboration (CKD-EPI) equation refit without adjustment for race. BUN/Creatinine Ratio 14.1 LAB CHEMISTRY METHOD 10/24/2024 7:56 AM [facility] Calcium 9.3 8.5 - 10.5 mg/dL LAB CHEMISTRY METHOD 10/24/2024 7:56 AM EST [facility] Blood Venous blood specimen / Unknown Venipuncture / Unknown 10/24/2024 6:53 AM EST 10/24/2024 7:17 AM EST Julius Crespo MD LAB BLOOD ORDERABLES Final Res ult [facility] [address] [place] [address], * Hepatitis C Screening (04/19/2023) Hepatitis C Screening abstracted Historical Provider HEALTH MAINTENANCE Final Result * Pap Smear (11/22/2022) Pap smear normal,abs tracted Historical Provider HEALTH MAINTENANCE Final Result * Colonoscopy (10/26/2021) Colonoscopy normal,abs tracted Anatomical Region Laterality Modality Other Historical Provider HEALTH MAINTENANCE Final Result from Last 3 Months or Most Recently Relevant to Health Maintenance Insurance [facility] Advance Directives * Full Code - Default [...] currently active code status orders. Care Teams Sales Advisory Manager Relationship Specialty Start Date End Date Jose Rafael George MD [address] [place] [address] PCP - General Internal Medicine 10/23/24
--- OUTSIDE RECORDS SUMMARY | 2025-03-27 11:56 | XMS_ITS | Clinical Summary ---
Author Organization [facility] Address [address] [place] [phone] Phone Care Team Providers Care Grease Packer Name Role Phone Helene Santa NOC TECHNICIAN Primary Care Provider + Allergies Active Allergy Reactions Criticality Noted Date Comments Propoxyphene N-Acetaminophen Nausea and/or Vomiting 01/20/2022 Oxycodone-Acetaminophen Nausea and/or Vomiting 01/20/2022 Medications famotidine (PEPCID) 20 MG tablet Take 20 mg by mouth daily. 2 Active hydroCHLOROthia zide (MICROZIDE) 12.5 mg capsule Take 12.5 mg by mouth every morning. 2 Active levocetirizine (XYZAL) 5 MG tablet Take 5 mg by mouth daily. 2 Active metFORMIN (GLUCOPHAGE) 1000 MG tablet Take 1,000 mg by mouth 2 (two) times a day. 2 Active nystatin cream APPLY TOPICALLY TO AFFECTED AREAS TWICE DAILY FOR 14 DAYS 2 Active cholecalciferol (VITAMIN D3) 25 MCG (1,000 unit) tablet Take 1,000 Units by mouth daily. Active Active Problems No known active problems Social History Tobacco Use Types Packs/Day Years Used Date Smoking Tobacco: Never Smokeless Tobacco: Never Alcohol Use Standard Drinks/Week Comments Yes 0 (1 standard drink = 0.6 oz pur e alcohol) once every 3 months Education Answer Date Recorded Are you interested in more education? Not on dary e 01/06/2023 Are you concerned about learning? Not on file 01/06/2023 No 01/06/2023 No 01/06/2023 Digital Access Answer Date Recorded No 02/04/2023 No 02/04/2023 No 02/04/2023 Reliable internet access at home? Not on file 02/04/2023 Device with a working camera? Not on file Comments Unknown Sex and Gender Information Value Date Recorded Sex Assigned at Not on file Legal Sex Female 2:34 PM EST Gender Identity Not on file Sexual Orientation Not on file Last Filed Vital Signs Vital Sign Reading Time Taken Comments Blood Pressure 94/69 01/23/2022 9:10 AM EDT Pulse 76 01/23/2022 9:10 AM EDT Temperature 36.1 C (97 F) 01/23/2022 8:55 AM EDT Respiratory Rate 16 01/23/2022 9:10 AM EDT Oxygen Saturation 95% 01/23/2022 9:10 AM EDT Inhaled Oxygen Concentration - - Weight 117.9 kg (260 lb) 01/23/2022 8:05 AM EDT Height 162.6 cm (5' 4.02 ) 01/23/2022 8:05 AM ED T Body Mass Index 44.61 01/23/2022 8:05 AM EDT Plan of Treatment Health Maintenance Due Date Last Done Comments CREATININE LEVEL 1961 LIPID PANEL 1961 POTASSIUM LEVEL 1961 DEPRESSION SCREENING 1973 HEPATITIS C SCREENING 1979 HIV ONE-TIME SCREENING (18-6 5 YEARS) 1979 PAP SMEAR 1982 MAMMOGRAM 2001 COLOGUARD 2006 FIT TEST 2006 FOBT 2006 SIGMOIDOSCOPY 2006 VIRTUAL COLONOSCOPY 2006 PNEUMOCOCCAL VACCINES (50+ years) (1 of 1 - PCV) 2011 ZOSTER VACCINES (1 of 2) 2011 COVID-19 VACCINE (4 - 2023-2 5 season) 2024 09/08/2021, 01/20/2021, 12/23/2020 Adult Td,Tdap Booster 11/16/2029 11/17/2019 COLONOSCOPY 01/24/2032 01/23/2022 COLORECTAL CANCER SCREENING 01/24/2032 RSV VACCINE (1 - 1-dose 75+ series) 2036 SMOKING STATUS SCREENING (On ce After 26 Yrs) Completed 01/23/2022 HEPATITIS A VACCINES Aged Out No long er eligible based on patient's age to complete this topic HIB VACCINES Aged Out No longer eligi ble based on patient's age to complete this topic MENINGOCOCCAL VACCINES (ACWY) Aged Out No longer eligible based on patient's age to complete this topic MENINGOCOCCAL VACCINES (B) Aged Out N o longer eligible based on patient's age to complete this topic Medical Devices Not on file Procedures Procedure Name Priority Date/Time Associated Diagnosis Comments ENDOSCOPY, COLON 01/23/2022 8:22 AM EDT from Last 3 Months or Most Recently Relevant to Health Maintenance Results * ENDOSCOPY, COLON (01/23/2022 8:22 AM EDT) Narrative Transcriptions David Machado MD - 01/23/2022 8:22 AM EDT Patient Name: Atiya Stephen Attending MD:: DAVID MACHADO MD, Procedure Date: 01/23/2022 8:22 AM Date of : 1960 Age: 61 Admit Type: Outpatient Gender: Female Room: [place] [address] Referring MD: Helene Santa Exam Type: Colonoscopy Indications: Screening for colorectal malignant neoplasm Medications: Monitored Anesthesia Care Procedure: Informed consent was obtained from the patientafter discussion of the indications, limitations, alternatives, benefits, and risks of the procedure. Risks specifically discussed include but are not limited to medication reactions, missed lesions, bleeding, perforation, or the need for emergent surgery. Throughout the procedure, the patient's blood pressure, pulse, end-tidal CO2, and oxygensaturations were monitored continuously. The Olympus adult variable colonoscope [id number] #4 was introduced through the anus and advanced to the cecum, identified by appendiceal orifice andileocecal valve. The colonoscopy was performed without difficulty. The patient tolerated the procedurewell. The quality of the bowel preparation was excellent. The quality of the bowel preparation was evaluated using the BBPS ([place] Bowel Preparation Scale)with scores of: Right Colon = 3, Transverse Colon = 3and Left Colon = 3 (entire mucosa seen well with no residual staining, small fragments of stool oropaque liquid). The total BBPS score equals 9. Anatomical landmarks were photographed. Complications: No immediate complications. Estimated blood loss:None. Findings: The perianal and digital rectal examinations were normal. Internal hemorrhoids were found duringretroflexion. The hemorrhoids were mild. The exam was otherwise normal throughout theexamined colon. Impression: - No specimens collected. - Hemorrhoids. Recommendation: - Discharge patient to home. - Repeat colonoscopy in 10 years for screening purposes. DAVID MACHADO MD, 01/23/2022 8:55:10 AM This report has been signed electronically. Number of Addenda: 0 Note Initiated On: 01/23/2022 8:22 AM Procedure Code(s): --- Professional --- 19490, Colonoscopy, flexible; diagnostic, including collection of specimen(s) by brushing or washing, when performed (separateprocedure) --- Technical --- 26482, Colonoscopy, flexible; diagnostic, including collection of specimen(s) by brushing or washing, when performed (separateprocedure) Diagnosis Code(s): --- Professional --- Z12.11, Encounter for screening for malignantneoplasm of colon K64.9, Unspecified hemorrhoids --- Technical --- Z12.11, Encounter for screening for malignantneoplasm of colon K64.9, Unspecified hemorrhoids CPT copyright 2020 [employer]. All rights reserved. The codes documented in this report are preliminary and upon top waddy reviewmay be revised to meet current compliance requirements. Procedure Date: 01/23/2022 8:22:39 AM [address] [place] [address] Helene Santa NOC TECHNICIAN GI PROCEDURE ORDERABLES Final Result from Last 3 Months or Most Recently Relevant to Health Maintenance Insurance O O O O O O Care Teams Grease Packer Relationship Specialty Start Date End Date Helene Santa NP [address] [place] [id number] PCP - General Family Medicine 01/23/22 Additional Source Comments The information contained in this document represents components of the legal health record. It is not the complete legal health record.[facility]
--- OUTSIDE RECORDS SUMMARY | 2025-03-27 11:56 | XMS_ITS | Continuity of Care Document ---
Author Organization [facility] Address [address] [facility] [address] [place] [address] Insurance Providers Payer Plan Claims Address Claims Phone Policy Number Group Number Relation Employer Guarantor Name Guarantor Guarantor Address Guarantor Phone JEN Clement [facility] [address] [facility] [address] [address] [id number] 1 Self Atiya Mitchell [address] [place] [phone] [place] [id number] Self Atiya Mitchell [address] [place] [phone] Problems Condition ICD9 code ICD10 code SNOMED code Start Date End Date S tatus Encounter for screening for other metabolic disorders Z13.228 Results No Results Allergies, adverse reactions, alerts No known allergies and adverse reactions Medications No administered medications reported Vital Signs No vital signs reported Social History No smoking Hx information available
== END 2025-03-27 11:34 | disposition home or self-care (01) ==
LOC: HO.HBST 11:31
PROVIDERS: PCP Internal Medicine Hematology & Oncology; Visit Provider Counselor Mental Health
DX: F43.20 Adjustment disorder, unspecified (principal); Z98.84 Bariatric surgery status
CPT/HCPCS: 90832

== ENCOUNTER 2025-03-27 14:17 | Outpatient (AMB) | payer OTHER, SELFPAY ==
--- NOTE | 2025-03-27 14:31 | MHC.OFFVISWM ---
VS Expanded 03/27/25 15:06 BP 114/68 Blood Pressure Location Rt brachial Blood Pressure Position Sitting Pulse 73 Pulse Source Pulse Oximeter Temp 97.8 F Temperature Source Temporal Artery Scan Pulse Oximetry 96 Oxygen Delivery Method Room Air Height 5 ft 4 in Weight 225 lb 9.6 oz BMI 38.7 Body Fat % 41.7 Body Fat Mass 94.2 Fat Free Mass 131.4 Visceral Fat Rating 14.0 Body Water % 41.3 Body Water Mass 93.0 Muscle Mass/Score 124.8 Basal Metabolic Rate/Score 295 Intake Visit Reasons: (OV) PO LSG 02/26/25 Reconnaissance Crewmember Required: No Allergies oxycodone (From Percocet) Adverse Reaction (Intermediate, Verified 03/06/25 10:21) Nausea and Vomiting propoxyphene (From Darvocet-N) Adverse Reaction (Intermediate, Verified 03/06/25 10:21) Nausea and Vomiting Medication List - Last Reconciled 03/27/25 by DELL Rios cholecalciferol (vitamin D3) 50 mcg PO DAILY Held on 02/27/25. Instructions: Resume on 03/13/25. fluticasone propionate 50 mcg/actuation 1 spray intranasal DAILY PRN magnesium 250 mg PO DAILY Held on 02/27/25. Instructions: Resume on 03/13/25. pantoprazole 40 mg PO DAILY@0630 sucralfate 10 mL PO BID HPI Comments Details: This?a?65?yo female who is s/p LSG without hiatal hernia repair on?02/26/2025. Presents for 1 month post op visit. Weight today is 225.6 pounds, with a BMI of 38.7. There has been a 49.8 pound weight loss,(initial weight 275.4 pounds) since starting the program on 12/31/2024 reflecting a 18% total body weight loss and a weight loss of 21.6 pounds since surgery (operative weight 247.2 pounds) reflecting a 8.7% TBWL since surgery. No complaints of nausea, emesis, abdominal pain or reflux. Reports infrequent but normal bowel movements every 2-3 days and uses stool softeners regularly. taking celebrate mvi At her last visit, 03/06/2025, she had been having significant loose stools and appeared dehydrated. She was sent to the emergency room for evaluation. She received IV fluids, antiemetic, B12, folate, thiamine. She was able to be discharged home that day. Since then, she reports that she feels fantastic. Present meal plan includes: Protein 2.0 water 7-10 another one 11-2 another one 3-5 fit crunch bar 6-9 Drinking 64 oz water ? Exercise routine includes: stationary bike at home daily 2 x per day, 200 mehran total per day has treadmill at home as well but hasn't used rrecently [facility] Medical History GERD (gastroesophageal reflux disease) DJD (degenerative joint disease) Sleep apnea Morbid obesity Surgical History S/P laparoscopic sleeve gastrectomy History of esophagogastroduodenoscopy (EGD) (02/04/25) H/O colonoscopy Hx of section Family History Paternal Grandmother Pancreatic cancer Maternal Grandfather Pancreatic cancer Sister Cervical cancer Sister Breast cancer Mother Breast cancer Social History Household Members: None Household Members Other:: son at college Housing: House Are you a primary home care administrator to a significant other at home: No Do you presently have visiting nurse or other home services: No 75 years or older and lives alone: No Alcohol intake: current Alcohol intake frequency: holidays/special occasions only Alcohol type: wine Patient Tobacco Use Status: Never used Tobacco Physical Exam Const General: healthy appearing and no acute distress Resp Effort & Inspection: normal respiratory effort Auscultation: clear to auscultation bilaterally Cardio Rate: regular rate Rhythm: regular rhythm GI Auscultation: normal bowel sounds Extrem General: Yes normal to inspection Assessment & Plan Assessment & Plan (1) S/P laparoscopic sleeve gastrectomy: Code(s): Z98.84 - Bariatric surgery status Category: Surgical Plan: Patient is doing well and making progress. She feels significantly better since approximately 3 weeks ago when she had to go to the emergency room. She now states she feels fantastic. She is following the meal plan although is drinking a lot in general, she will discuss with Dr. Coleman, possibly changing the plan to include an additional bar and remove 1 of the protein Holly. With regard to her exercise, discussed strategies to improve outcomes using her stationary bike. She will maintain a speed of 8 or 9, increasing resistance every 3 minutes Topamax then decreasing back to 0 and increasing again until she is able to reach 150 calories per session, twice per day. She may also try her treadmill that she has at home. We additionally discussed going to the [facility] as another option to utilize their pool. She will return to the office in a proximally 1 month.
[2025-03-27 15:06] VITALS: BP 114/68; PULSE 73; TEMP 36.6; O2SAT 96; BMI 38.7
== END 2025-03-27 15:04 | disposition home or self-care (01) ==
LOC: HO.HBS 14:18
PROVIDERS: PCP Internal Medicine; Visit Provider Physician Assistant Surgical
DX: Z98.84 Bariatric surgery status (principal)
CPT/HCPCS: 99024

== ENCOUNTER 2025-05-01 11:33 | Outpatient (AMB) | payer OTHER, SELFPAY ==
[2025-05-01 08:17] VITALS: BMI 36.6
--- NOTE | 2025-05-01 08:17 | A.OFFVIS_ITS ---
VS Expanded 05/01/25 08:17 Height 5 ft 4 in Weight 213 lb 8 oz BMI 36.6 Body Fat % 49.6 Body Fat Mass 106 Fat Free Mass 107.8 Visceral Fat Rating 18 Body Water % 34.6 Body Water Mass 74 Muscle Mass/Score 101.4 Basal Metabolic Rate/Score 1,427 Intake Visit Reasons: (TV) PO LSG 02/26/25 Mold Clamper Required: No Allergies oxycodone (From Percocet) Adverse Reaction (Intermediate, Verified 03/06/25 10:21) Nausea and Vomiting propoxyphene (From Darvocet-N) Adverse Reaction (Intermediate, Verified 03/06/25 10:21) Nausea and Vomiting Medication List - Last Reconciled 05/01/25 by DELL Rios cholecalciferol (vitamin D3) 50 mcg PO DAILY Held on 02/27/25. Instructions: Resume on 03/13/25. fluticasone propionate 50 mcg/actuation 1 spray intranasal DAILY PRN magnesium 250 mg PO DAILY Held on 02/27/25. Instructions: Resume on 03/13/25. pantoprazole 40 mg PO DAILY@0630 sucralfate 10 mL PO BID HPI Comments Details: This?a?65?yo female who is s/p LSG without hiatal hernia repair on?02/26/2025. Presents for 2 month post op visit. Weight today is 213.8 pounds, with a BMI of 36.6. There has been a 61.6 pound weight loss,(initial weight 275.4 pounds) since starting the program on 12/31/2024 reflecting a 22.3% total body weight loss and a weight loss of 33.4 pounds since surgery (operative weight 247.2 pounds) reflecting a 13.5% TBWL since surgery. No complaints of nausea, emesis, abdominal pain or reflux. Reports infrequent but normal bowel movements every 2- 3 days and uses stool softeners regularly. taking celebrate mvi Present meal plan includes: Protein 2.0 water 7-10 fit crunch bar 11-2 another water 3-5 fit crunch bar 6-9 Drinking 64 oz water ? Exercise routine includes: stationary bike at home daily 2 x per day, 260-270 mehran total per day has treadmill at home as well but hasn't used recently COUNT INCLUDES THE [facility] Medical History GERD (gastroesophageal reflux disease) DJD (degenerative joint disease) Sleep apnea Morbid obesity Surgical History S/P laparoscopic sleeve gastrectomy History of esophagogastroduodenoscopy (EGD) (02/04/25) H/O colonoscopy Hx of section Family History Paternal Grandmother Pancreatic cancer Maternal Grandfather Pancreatic cancer Sister Cervical cancer Sister Breast cancer Mother Breast cancer Social History Household Members: None Household Members Other:: son at college Housing: House Are you a primary memory care program director to a significant other at home: No Do you presently have visiting nurse or other home services: No 75 years or older and lives alone: No Alcohol intake: current Alcohol intake frequency: holidays/special occasions only Alcohol type: wine Patient Tobacco Use Status: Never used Tobacco Telehealth Telehealth Telehealth Platform: Telephone Location of provider rendering services: practice address Location of patient: address on file Patient Identification confirmed using: Name, : Yes Telehealth method: voice only Patient verbally consented to treatment: Yes Patient verbally consented to billing insurance company: Yes Patient informed of any privacy concerns related to visit: Yes Minutes spent on Phone/Video with Pt.: 15 Assessment & Plan Assessment & Plan (1) S/P laparoscopic sleeve gastrectomy: Code(s): Z98.84 - Bariatric surgery status Category: Surgical Plan: She inquired about adding food and I suggested that she discuss this with Dr. Coleman who has been managing her meal plan. Additionally, with regard to her exercise, recommend maintaining a speed of 12 increasing her resistance by 2 every 3 minutes to max while maintaining speed then reduced by 2 and increase again until she reaches 150 calories twice daily. We will have her return to the office for follow-up. Encouraged to continue to text with any questions or concerns.
--- OUTSIDE RECORDS SUMMARY | 2025-05-01 11:36 | XMS_ITS | Clinical Summary ---
Author Organization [facility] Address [address] [place] [id number] Phone Care Team Providers Care Hoop Coiler Name Role Phone Helene Santa WET MIX OPERATOR Primary Care Provider + Allergies Active Allergy [...] 60 Admit Type: Outpatient Gender: Female Room: [place] [address] Referring MD: Helene Santa Exam Type: Colonoscopy [...] monitored continuously. The Olympus adult variable colonoscope [id number] #4 was introduced through the anus and advanced to the cecum, identified by appendiceal orifice andileocecal valve. The colonoscopy was performed without difficulty. The patient tolerated the procedurewell. The quality of the bowel preparation was excellent. The quality of the bowel preparation was evaluated using the BBPS ([place] Bowel Preparation Scale)with scores of: Right [...] 8:22 AM Procedure Code(s): --- Professional --- 32185, Colonoscopy, flexible; diagnostic, including collection of specimen(s) by brushing or washing, when performed (separateprocedure) --- Technical --- 92227, Colonoscopy, flexible; diagnostic, including collection of specimen(s) by brushing or washing, when performed (separateprocedure) Diagnosis Code(s): --- Professional --- Z12.11, Encounter for screening for malignantneoplasm of colon K64.9, Unspecified hemorrhoids --- Technical --- Z12.11, Encounter for screening for malignantneoplasm of colon K64.9, Unspecified hemorrhoids CPT copyright 2020 [employer]. All rights reserved. The codes documented in this report are preliminary and upon air export agent reviewmay be revised to meet current compliance requirements. Procedure Date: 01/23/2022 8:22:39 AM [address] [place] [address] Helene Santa WET MIX OPERATOR GI PROCEDURE ORDERABLES Final Result from Last 3 Months or Most Recently Relevant to Health Maintenance Insurance O O O O O O Care Teams Hoop Coiler Relationship Specialty Start Date End Date Helene Santa NP [address] [place] [id number] PCP - General Family Medicine 01/23/22 Additional Source Comments The information contained in this document represents components of the legal health record. It is not the complete legal health record.[facility]
--- OUTSIDE RECORDS SUMMARY | 2025-05-01 11:36 | XMS_ITS | Clinical Summary ---
Author Organization [place] [address] [address]leg[address] [facility] Building Address [facility] [place] Phone Care Team Providers Care First Grade Teacher Name Role Phone Jose Rafael George MD Primary Care Provider [phone] Allergies Active Allergy Reactions Criticality Noted Date [...] Current moderate episode of major depressive disorder ([facility] V24, [facility] V28) 08/10/2023 GERD (gastroesophageal reflux disease) 2 Hypertension 07/07/2022 Obesity 07/07/2022 Osteoarthritis 07/07/2022 Immunizations Name Administration Dates Next Due Influenza, [...] Cervical Cancer Screening: Pap Smear 11/22/2025 11/22/2022 Social Influencers of Health Screening 01/12/2026 01/12/2025 Cholesterol Screening (Lipid Panel) 10/24/2029 10/24/2024, 03/21/2024, 03/21/2024 DTaP,Tdap,and Td Vaccines (2 - Td or Tdap) 11/16/2029 11/17/2019 Colorectal Cancer Screening: Colonoscopy 10/26/2031 10/26/2021 Hepatitis C Screening Completed 04/19/2023 Depression Screening Completed 01/12/2025 HIB Vaccines Aged Out No longer eligi [...] Procedure Name Priority Date/Time Associated Diagnosis Comments BASIC METABOLIC PANEL Routine 10/24/2024 6:53 AM EST LIPID PANEL WITH REFLEX TO DIRECT LDL Add-On 10/24/2024 6:53 AM EST HEPATITIS C SCREENING Routine 04/19/2023 PAP SMEAR Routine 11/22/2022 COLONOSCOPY Routine 10/26/2021 from Last 3 Months or Most Recently Relevant to Health Maintenance Results * Lipid panel with reflex to direct LDL (10/24/2024 6:53 AM EST) Cholesterol 158 0 - 200 mg/dL LAB CHEMISTRY METHOD 10/24/2024 7:56 AM EST [facility] Triglycerides 69 0 - 150 mg/dL LAB CHEMISTRY METHOD 10/24/2024 7:56 AM EST [facility] HDL 69 >=40 mg/dL LAB CHEMISTRY METHOD 10/24/2024 7:56 AM EST [facility] LDL Calculated 75 0 - 100 mg/dL LAB CHEMISTRY METHOD 10/24/2024 7:[address] [facility] VLDL Cholesterol Antolin 13.8 mg/dL LAB CHEMISTRY METHOD 10/24/2024 7:[address] [facility] Non HDL Chol. (LDL+VLDL) 89 <145 mg/dL LAB CHEMISTRY METHOD 10/24/2024 7:[address] [facility] Chol/HDL Ratio 2.3 0.0 - 4.4 LAB CHEMISTRY METHOD 10/24/2024 7:[address] [facility] Blood Venous blood specimen / Unknown Venipuncture / Unknown 10/24/2024 6:53 AM EST 10/24/2024 7:17 AM EST us Julius Crespo MD LAB BLOOD ORDERABLES Final Res ult [facility] [address] [place] [address], [place] [phone] * (ABNORMAL) Basic metabolic panel (10/24/2024 6:53 AM EST) Sodium 141 133 - 145 mmol/L LAB CHEMISTRY METHOD 10/24/2024 7:[address] [facility] Potassium 3.7 3.5 - 5.5 mmol/L LAB CHEMISTRY METHOD 10/24/2024 7:[address] [facility] Chloride 111(H) 96 - 110 mmol/L LAB CHEMISTRY METHOD 10/24/2024 7:[address] [facility] CO2 26 21 - 32 mmol/L LAB CHEMISTRY METHOD 10/24/2024 7:[address] [facility] Anion Gap 4 3 - 11 LAB CHEMISTRY METHOD 10/24/2024 7:[address] [facility] Glucose 104(H) 70 - 100 mg/dL LAB CHEMISTRY METHOD 10/24/2024 7:56 AM EST [facility] BUN 10 5 - 25 mg/dL LAB CHEMISTRY METHOD 10/24/2024 7:[address] [facility] Creatinine 0.71 0.50 - 1.10 mg/dL LAB CHEMISTRY METHOD 10/24/2024 7:[address] [facility] eGFR 96 >=60 mL/min/1. 73m2 LAB CHEMISTRY METHOD 10/24/2024 7:[address] [facility] Comment:Calculation based on the Chronic Kidney Disease Epidemiology Collaboration (CKD-EPI) equation refit without adjustment for race. BUN/Creatinine Ratio 14.1 LAB CHEMISTRY METHOD 10/24/2024 7:[address] [facility] Calcium 9.3 8.5 - 10.5 mg/dL LAB CHEMISTRY METHOD 10/24/2024 7:[address] [facility] Blood Venous blood specimen / Unknown Venipuncture / Unknown 10/24/2024 6:53 AM EST 10/24/2024 7:17 AM EST Julius Crespo MD LAB BLOOD ORDERABLES Final Res ult [facility] [address] [place] [address], * Hepatitis C Screening (04/19/2023) Hepatitis C Screening abstracted Historical Provider HEALTH MAINTENANCE Final Result * Pap Smear (11/22/2022) Pap smear normal,abs tracted Historical Provider HEALTH MAINTENANCE Final Result * Colonoscopy (10/26/2021) Colonoscopy normal,abs tracted Anatomical Region Laterality Modality Other Historical Denny RILEY HEALTH MAINTENANCE Final Result from Last 3 Months or Most Recently Relevant to Health [place] [address] [facility] [place] [phone] Advance Directives * Full Code - Default [...] currently active code status orders. Care Teams First Grade Teacher Relationship Specialty Start Date End Date Jose Rafael George MD [address] [place] [place] [address] [place] [address] PCP - General Internal Medicine 10/23/24
--- OUTSIDE RECORDS SUMMARY | 2025-05-01 11:36 | XMS_ITS ---
Author Name [facility] Organization Unknown Care Team Organization Name Specialty Phone Email Start Date End Da te [facility] Roxann Mariscal Primary Care 08/22/20232023 [facility] Jose Rafael George Primary Care 07/18/20222023
== END 2025-05-01 11:41 | disposition home or self-care (01) ==
LOC: HO.HBS 11:33
PROVIDERS: PCP Internal Medicine Hematology & Oncology; Visit Provider Physician Assistant Surgical
DX: Z98.84 Bariatric surgery status (principal)
CPT/HCPCS: 99024

== ENCOUNTER 2025-07-20 10:39 | Outpatient (AMB) | payer OTHER, SELFPAY ==
--- NOTE | 2025-07-20 10:35 | MHC.OFFVISWM ---
VS Expanded 07/20/25 10:38 Height 5 ft 4 in Weight 185 lb 8 oz BMI 31.8 Intake Visit Reasons: (TV) PO LSG 02/26/25 Allergies oxycodone (From Percocet) Adverse Reaction (Intermediate, Verified 03/06/25 10:21) Nausea and Vomiting propoxyphene (From Darvocet-N) Adverse Reaction (Intermediate, Verified 03/06/25 10:21) Nausea and Vomiting Medication List - Last Reconciled 07/20/25 by DELL Wilson cholecalciferol (vitamin D3) 50 mcg PO DAILY Held on 02/27/25. Instructions: Resume on 03/13/25. fluticasone propionate 50 mcg/actuation 1 spray intranasal DAILY PRN magnesium 250 mg PO DAILY Held on 02/27/25. Instructions: Resume on 03/13/25. pantoprazole 40 mg PO DAILY@0630 HPI Comments Details: This a 65 yo female who is s/p LSG without hiatal hernia repair on 02/26/2025. Presents for 5 month post op visit. Weightloss of 28lb since last OV in April. Initial weight 275.4 pounds starting the program on 12/31/2024 and operative weight 247.2 pounds. No complaints of nausea, emesis, abdominal pain or reflux. Reports infrequent but normal bowel movements every 2-3 days and uses stool softeners regularly. Taking celebrate mvi. Pt feels wonderful, lot of energy . Started taking biotin about a month ago. Gone from size 20 to size 12. Her short term goal is to no longer be obese at a weight of 174lbs or less. Present meal plan includes: Protein 2.0 water 8oz x 2 fit crunch bar x 2 one meal with 3ff chicken or fish, 3ff broccoli or cauliflower Drinking 64 oz water Exercise routine includes: stationary bike at home daily 2 x per day, 260-270 mehran total per day has treadmill at home as well but hasn't used recently [facility] Medical History GERD (gastroesophageal reflux disease) DJD (degenerative joint disease) Sleep apnea Morbid obesity Surgical History S/P laparoscopic sleeve gastrectomy History of esophagogastroduodenoscopy (EGD) (02/04/25) H/O colonoscopy Hx of section Family History Paternal Grandmother Pancreatic cancer Maternal Grandfather Pancreatic cancer Sister Cervical cancer Sister Breast cancer Mother Breast cancer Social History Household Members: None Household Members Other:: son at college Housing: House Are you a primary critical care clinical nurse specialist to a significant other at home: No Do you presently have visiting nurse or other home services: No 75 years or older and lives alone: No Alcohol intake: current Alcohol intake frequency: holidays/special occasions only Alcohol type: wine Patient Tobacco Use Status: Never used Tobacco Telehealth Telehealth Telehealth Platform: Telephone Location of provider rendering services: other Location of patient: address on file Patient Identification confirmed using: Name, : Yes Telehealth method: voice only Patient verbally consented to treatment: Yes Patient verbally consented to billing insurance company: Yes Patient informed of any privacy concerns related to visit: Yes Minutes spent on Phone/Video with Pt.: 16 Assessment & Plan Assessment & Plan (1) S/P laparoscopic sleeve gastrectomy: Code(s): Z98.84 - Bariatric surgery status Category: Surgical (2) Obesity: Code(s): E66.9 - Obesity, unspecified Category: Medical Plan We discussed getting to BMI < 30 and then expanding meal plan further to include things like salad. In the meantime she agreed to continue meal plan as above. She is taking biotin for hair loss and we discussed continuing to take MVI and get adequate protein. Continue communicating with Dr Bonilla weekly. Labs ordered for next month. RTC 3-4 months for 30min TV. Gave pt my cell # and encouraged her to text me with any questions. Orders: Orders Ferritin Today Z98.84 - Bariatric surgery status C Reactive Protein Today Z98.84 - Bariatric surgery status Vitamin A Today Z98.84 - Bariatric surgery status Zinc Today Z98.84 - Bariatric surgery status Complete Blood Count Auto Diff Today Z98.84 - Bariatric surgery status IRON PROFILE Today Z98.84 - Bariatric surgery status Vitamin D 25-OH Total Today Z98.84 - Bariatric surgery status TSH reflex Free T4 Today Z98.84 - Bariatric surgery status Vitamin B1 Today Z98.84 - Bariatric surgery status Vitamin B12 and Folate Today Z98.84 - Bariatric surgery status Comprehensive Met. Panel Today Z98.84 - Bariatric surgery status Lipid Panel Today Z98.84 - Bariatric surgery status Hemoglobin A1c Today Z98.84 - Bariatric surgery status Insulin Today Z98.84 - Bariatric surgery status
[2025-07-20 10:38] VITALS: BMI 31.8
--- OUTSIDE RECORDS SUMMARY | 2025-07-20 12:38 | XMS_ITS | Encounter Summary ---
Author Organization [facility] Address [address] [address] Phone Care Team Providers Care Human Intelligence Name Role Phone Helene Santa NP Primary Care Provider + Encounter Details Date Type Department Care Team (Late st Contact Info) Description 01/23/2022 Procedure Pass [facility] Endoscopy Admitting Dept Virtual Department [address] [place] [address] Social History Tobacco Use Types Packs/Day Years Used Date Smoking Tobacco: Never Smokeless Tobacco: Never Alcohol Use Standard Drinks/Week Comments Yes 0 (1 standard drink = 0.6 oz pur e alcohol) once every 3 months Comments Unknown Sex and Gender Information Value Date Recorded Sex Assigned at Not on file Legal Sex Female 2:34 PM EST Gender Identity Not on file Sexual Orientation Not on file documented as of this encounter Plan of Treatment Not on file documented as of this encounter Visit Diagnoses Not on filedocumented in this encounter Care Teams Human Intelligence Relationship Specialty Start Date End Date Helene Santa NP [address] [place] [id number] PCP - General Family Medicine 01/23/22 documented as of this encounter Additional Source Comments The information contained in this document represents components of the legal health record. It is not the complete legal health record[facility]
--- OUTSIDE RECORDS SUMMARY | 2025-07-20 12:38 | XMS_ITS | Clinical Summary ---
Author Organization [facility] Address [address] [place] [phone] Phone Care Team Providers Care Bench Assembler Name Role Phone Helene Santa APPLICATION SPEC Primary Care Provider + Allergies Active Allergy [...] HEPATITIS C SCREENING 1979 HIV ONE-TIME SCREENING (18-65 YEARS) 1979 PAP SMEAR 1982 MAMMOGRAM 2001 COLOGUARD 2006 FIT TEST 2006 FOBT 2006 SIGMOIDOSCOPY 2006 VIRTUAL COLONOSCOPY 2006 PNEUMOCOCCAL VACCINES (50+ years) (1 of 1 - PCV) 2011 ZOSTER VACCINES (1 of 2) 2011 INFLUENZA VACCINE (#1) 2025 , 06/27/2020, 08/06/2019, Additional history exists COVID-19 VACCINE ( season) 2025 09/08/2021, 01/20/2021, 12/23/2020 Adult Td,Tdap Booster 11/16/2029 11/17/2019 COLONOSCOPY 01/24/2032 01/23/2022 COLORECTAL CANCER SCREENING 01/24/2032 RSV VACCINE (1 - 1-dose 75+ series) 2036 SMOKING STATUS SCREENING (Once After 26 Yrs) Completed 01/23/2022 HEPATITIS A VACCINES Aged Out No long er eligible based on patient's age to complete this topic HIB VACCINES Aged Out No longer eligi ble based on patient's age to complete this topic IPV VACCINES Aged Out No longer eligi ble [...] 01/23/2022 8:22 AM EDT Patient Name: Atiya Mitchell Attending MD:: DAVID MACHADO MD, Procedure Date: 01/23/2022 8:22 AM Date of : 1960 Age: 61 Admit Type: Outpatient Gender: Female Room: [place] [address] Referring MD: Helene Santa Exam Type: Colonoscopy [...] monitored continuously. The Olympus adult variable colonoscope [id number] #4 was introduced through the anus and advanced to the cecum, identified by appendiceal orifice andileocecal valve. The colonoscopy was performed without difficulty. The patient tolerated the procedurewell. The quality of the bowel preparation was excellent. The quality of the bowel preparation was evaluated using the BBPS ([place] Bowel Preparation Scale)with scores of: Right Colon [...] 8:22 AM Procedure Code(s): --- Professional --- 22371, Colonoscopy, flexible; diagnostic, including collection of specimen(s) by brushing or washing, when performed (separateprocedure) --- Technical --- 26395, Colonoscopy, flexible; diagnostic, including collection of specimen(s) by brushing or washing, when performed (separateprocedure) Diagnosis Code(s): --- Professional --- Z12.11, Encounter for screening for malignantneoplasm of colon K64.9, Unspecified hemorrhoids --- Technical --- Z12.11, Encounter for screening for malignantneoplasm of colon K64.9, Unspecified hemorrhoids CPT copyright 2020 [employer]. All rights reserved. The codes documented in this report are preliminary and upon realty specialist reviewmay be revised to meet current compliance requirements. Procedure Date: 01/23/2022 8:22:39 AM [address] [place], [place] [id number] Helene Santa NP GI PROCEDURE ORDERABLES Final Result from Last 3 Months or Most Recently Relevant to Health Maintenance Insurance O O O O O O O O O Care Teams Bench Assembler Relationship Specialty Start Date End Date Helene Santa NP [address] [place] [id number] PCP - General Family Medicine 01/23/22 Additional Source Comments The information contained in this document represents components of the legal health record. It is not the complete legal health record.[facility]
--- OUTSIDE RECORDS SUMMARY | 2025-07-20 12:38 | XMS_ITS | Clinical Summary ---
Author Organization [place] [address] Hector villegas [facility] Building Address [facility] [place], [place] Phone Care Team Providers Care Skatesman Name Role Phone Jose Rafael George MD Primary Care Provider [phone] Allergies Active Allergy Reactions Criticality Noted Date [...] moderate episode of major depressive disorder ([facility] V24, [facility] V28) 08/10/2023 GERD (gastroesophageal reflux disease) 2 Hypertension 07/07/2022 Obesity 07/07/2022 Osteoarthritis 07/07/2022 Immunizations Immunization Administration Dates Next Due Influenza, Unspecified 06/11/2023,06/15/2022 [...] for your loved ones. For example, child care centre director or elderly care for an older adult? [...] Date Recorded What is your living situation? Unrecognized valu e 01/12/2025 Comments No Sex and Gender Information [...] Years (1 of 1 - PCV) 2011 RSV Immunization Adult Patients (1 - Risk 50-74 years 1-dose series) 2011 Zoster Vaccines (1 of 2) 2011 HIV Screening 08/20/2022 COVID-19 Vaccine ( season) 2025 09/08/2021, 01/20/2021, 12/23/2020 Influenza Vaccine (#1) 2025 [...] LAB CHEMISTRY METHOD 10/24/2024 7:56 AM EST [facility] Triglycerides 69 0 - 150 mg/dL LAB CHEMISTRY METHOD 10/24/2024 7:56 AM EST [facility] HDL 69 >=40 mg/dL LAB CHEMISTRY METHOD 10/24/2024 7:56 AM EST [facility] LDL Calculated 75 0 - 100 mg/dL LAB CHEMISTRY METHOD 10/24/2024 7:56 AM [facility] VLDL Cholesterol Antolin 13.8 mg/dL LAB CHEMISTRY METHOD 10/24/2024 7:56 AM [facility] Non HDL Chol. (LDL+VLDL) 89 <145 mg/dL LAB CHEMISTRY METHOD 10/24/2024 7:56 AM [facility] Chol/HDL Ratio 2.3 0.0 - 4.4 LAB CHEMISTRY METHOD 10/24/2024 7:56 AM [facility] Blood Venous blood specimen / Unknown Venipuncture / Unknown 10/24/2024 6:53 AM EST 10/24/2024 7:17 AM EST us Julius Crespo MD LAB BLOOD ORDERABLES Final Res ult [facility] [address] [place] [address], [place] [phone] * (ABNORMAL) Basic metabolic panel (10/24/2024 6:53 AM EST) Sodium 141 133 - 145 mmol/L LAB CHEMISTRY METHOD 10/24/2024 7:56 AM [facility] Potassium 3.7 3.5 - 5.5 mmol/L LAB CHEMISTRY METHOD 10/24/2024 7:56 AM [facility] Chloride 111(H) 96 - 110 mmol/L LAB CHEMISTRY METHOD 10/24/2024 7:56 AM [facility] CO2 26 21 - 32 mmol/L LAB CHEMISTRY METHOD 10/24/2024 7:56 AM [facility] Anion Gap 4 3 - 11 LAB CHEMISTRY METHOD 10/24/2024 7:56 AM [facility] Glucose 104(H) 70 - 100 mg/dL LAB CHEMISTRY METHOD 10/24/2024 7:56 AM EST [facility] BUN 10 5 - 25 mg/dL LAB CHEMISTRY METHOD 10/24/2024 7:56 AM [facility] Creatinine 0.71 0.50 - 1.10 mg/dL LAB CHEMISTRY METHOD 10/24/2024 7:56 AM [facility] eGFR 96 >=60 mL/min/1. 73m2 LAB CHEMISTRY METHOD 10/24/2024 7:56 AM EST [facility] Comment:Calculation based on the Chronic Kidney Disease Epidemiology Collaboration (CKD-EPI) equation refit without adjustment for race. BUN/Creatinine Ratio 14.1 LAB CHEMISTRY METHOD 10/24/2024 7:56 AM [facility] Calcium 9.3 8.5 - 10.5 mg/dL LAB CHEMISTRY METHOD 10/24/2024 7:56 AM [facility] Blood Venous blood specimen / Unknown Venipuncture / Unknown 10/24/2024 6:53 AM EST 10/24/2024 7:17 AM EST Julius Crespo MD LAB BLOOD ORDERABLES Final Res ult [facility] [address] [place] [address], * Hepatitis C Screening (04/19/2023) Hepatitis C Screening abstracted Historical D[facility] Final Result * Pap Smear (11/22/2022) Pap smear normal,abs tracted Iftikhar Baldwin MD HEALTH MAINTENANCE Final Result * Colonoscopy (10/26/2021) Colonoscopy normal,abs tracted Anatomical Region Laterality Modality Other Historical [facility] Final Result from Last 3 Months or Most Recently Relevant to [place] [address] [facility] [place] [phone] Advance Directives * Full Code - Default [...] currently active code status orders. Care Teams Skatesman Relationship Specialty Start Date End Date Jose Rafael George MD [address] [place], [place] [address] [place] [id number] PCP - General Internal Medicine 10/23/24
== END 2025-07-20 11:02 | disposition home or self-care (01) ==
LOC: HO.HBS 10:39
PROVIDERS: PCP Internal Medicine Hematology & Oncology; Visit Provider Physician Assistant Surgical
DX: E66.9 Obesity, unspecified (principal); Z68.31 Body mass index [BMI] 31.0-31.9, adult; Z90.3 Acquired absence of stomach [part of]; Z98.84 Bariatric surgery status
CPT/HCPCS: 98014

== ENCOUNTER 2025-07-21 08:55 | Outpatient (REF) | payer OTHER, SELFPAY ==
[2025-07-21 09:13] LABS: MANUAL DIFF FLAG NO
--- OUTSIDE RECORDS SUMMARY | 2025-07-21 09:21 | XMS_ITS | Clinical Summary ---
Author Organization [place] [address] Hector villegas [facility] Building Address [facility] [place] Phone Care Team Providers Care Gasoline Power Shovel Operator Name Role Phone Jose Rafael George MD [...] episode of major depressive disorder ([facility] V24, [facility] V28) 08/10/2023 GERD (gastroesophageal reflux disease) [...] your loved ones. For example, child care lead teacher or elderly care for an older [...] mg/dL LAB CHEMISTRY METHOD 10/24/2024 7:56 AM [facility] VLDL Cholesterol Antolin 13.8 mg/dL LAB CHEMISTRY METHOD 10/24/2024 7:56 AM [facility] Non HDL Chol. (LDL+VLDL) 89 <145 mg/dL LAB CHEMISTRY METHOD 10/24/2024 7:56 AM [facility] Chol/HDL Ratio 2.3 0.0 - 4.4 LAB CHEMISTRY METHOD 10/24/2024 7:56 AM [facility] Blood Venous blood specimen / Unknown Venipuncture / Unknown 10/24/2024 6:53 AM EST 10/24/2024 7:17 AM EST us Julius Crespo MD LAB BLOOD ORDERABLES Final Res ult [facility] [address] [place] [address], [place] [phone] * (ABNORMAL) Basic metabolic panel (10/24/2024 6:53 AM EST) Sodium 141 133 - 145 mmol/L LAB CHEMISTRY METHOD 10/24/2024 7:56 AM [facility] Potassium 3.7 3.5 - 5.5 mmol/L LAB CHEMISTRY METHOD 10/24/2024 7:56 AM [facility] Chloride 111(H) 96 - 110 mmol/L LAB CHEMISTRY METHOD 10/24/2024 7:56 AM [facility] CO2 26 21 - 32 mmol/L LAB CHEMISTRY METHOD 10/24/2024 7:56 AM [facility] Anion Gap 4 3 - 11 LAB CHEMISTRY METHOD 10/24/2024 7:56 AM [facility] Glucose 104(H) 70 - 100 mg/dL LAB CHEMISTRY METHOD 10/24/2024 7:56 AM EST [facility] BUN 10 5 - 25 mg/dL LAB CHEMISTRY METHOD 10/24/2024 7:56 AM [facility] Creatinine 0.71 0.50 - 1.10 mg/dL LAB CHEMISTRY METHOD 10/24/2024 7:56 AM [facility] eGFR 96 >=60 mL/min/1. 73m2 LAB CHEMISTRY METHOD 10/24/2024 7:56 AM EST [facility] Comment:Calculation based on the Chronic Kidney Disease Epidemiology Collaboration (CKD-EPI) equation refit without adjustment for race. BUN/Creatinine Ratio 14.1 LAB CHEMISTRY METHOD 10/24/2024 7:56 AM [facility] Calcium 9.3 8.5 - 10.5 mg/dL LAB CHEMISTRY METHOD 10/24/2024 7:56 AM [facility] Blood Venous blood specimen / Unknown Venipuncture / Unknown 10/24/2024 6:53 AM EST 10/24/2024 7:17 AM EST Julius Crespo MD LAB BLOOD ORDERABLES Final Res ult [facility] [address] [place] [address], * Hepatitis C Screening (04/19/2023) Hepatitis C Screening abstracted Historical [facility] Final Result * Pap Smear (11/22/2022) Pap smear normal,abs tracted Iftikhar Baldwin MD HEALTH MAINTENANCE Final Result * Colonoscopy (10/26/2021) Colonoscopy normal,abs tracted Anatomical Region Laterality Modality Other Historical [facility] Final Result from Last 3 Months or Most Recently Relevant to Health Maintenance [place] [address] [facility] [place] [phone] Advance Directives * Full Code - Default [...] currently active code status orders. Care Teams Gasoline Power Shovel Operator Relationship Specialty Start Date End Date Jose Rafael George MD [address] [place], [place] [address] [place] [phone] PCP - General Internal Medicine 10/23/24
--- OUTSIDE RECORDS SUMMARY | 2025-07-21 09:21 | XMS_ITS | Clinical Summary ---
Author Organization [facility] Address [address] [place] [phone] Phone Care Team Providers Care Home Coordinator Name Role Phone Helene Santa LIBRARY CATALOGING TECHNICIAN Primary Care Provider + Allergies Active [...] 61 Admit Type: Outpatient Gender: Female Room: [place] [address] Referring MD: Helene Santa Exam Type: Colonoscopy [...] monitored continuously. The Olympus adult variable colonoscope [id number] #4 was introduced through the anus and advanced to the cecum, identified by appendiceal orifice andileocecal valve. The colonoscopy was performed without difficulty. The patient tolerated the procedurewell. The quality of the bowel preparation was excellent. The quality of the bowel preparation was evaluated using the BBPS ([place] Bowel Preparation Scale)with scores of: Right Colon [...] 8:22 AM Procedure Code(s): --- Professional --- 68433, Colonoscopy, flexible; diagnostic, including collection of specimen(s) by brushing or washing, when performed (separateprocedure) --- Technical --- 80083, Colonoscopy, flexible; diagnostic, including collection of specimen(s) by brushing or washing, when performed (separateprocedure) Diagnosis Code(s): --- Professional --- Z12.11, Encounter for screening for malignantneoplasm of colon K64.9, Unspecified hemorrhoids --- Technical --- Z12.11, Encounter for screening for malignantneoplasm of colon K64.9, Unspecified hemorrhoids CPT copyright 2020 [employer]. All rights reserved. The codes documented in this report are preliminary and upon patient intake coordinator reviewmay be revised to meet current compliance requirements. Procedure Date: 01/23/2022 8:22:39 AM [address] [place], [place] [id number] Helene Santa NP GI PROCEDURE ORDERABLES Final Result from Last 3 Months or Most Recently Relevant to Health Maintenance Insurance O O O O O O O O O Care Teams Home Coordinator Relationship Specialty Start Date End Date Helene Santa NP [address] [place] [id number] PCP - General Family Medicine 01/23/22 Additional Source Comments The information contained in this document represents components of the legal health record. It is not the complete legal health record.[facility]
--- OUTSIDE RECORDS SUMMARY | 2025-07-21 09:22 | XMS_ITS | Encounter Summary ---
Author Organization [facility] Address [address] [address] Phone Care Team Providers Care Board Certified Music Therapist Name Role Phone Helene Santa NP Primary Care Provider + Encounter Details Date Type Department Care Team (Late st Contact Info) Description 01/23/2022 Procedure Pass [facility] Endoscopy Admitting Dept Virtual Department [address] [place] [address] Social History Tobacco Use Types Packs/Day Years [...] on filedocumented in this encounter Care Teams Board Certified Music Therapist Relationship Specialty Start Date End Date Helene Santa NP [address] [place] [phone] PCP - General Family Medicine 01/23/22 documented as of this encounter Additional Source Comments The information contained in this document represents components of the legal health record. It is not the complete legal health record.[facility]
[2025-07-21 09:41] LABS: Hematocrit 37.4 % (37.0-47.0); Hemoglobin 12.6 g/dl (12.0-16.0); Imm Gran Abs Auto 0.01 X10*3/uL (0.00-0.03); Imm Gran Pct Auto 0.2 % (0.0-0.4); Lymphocytes Absolute Auto 1.2 X10*3/uL (1.2-4.9); Mean Corpuscular HGB Conc 33.7 g/dl (31.0-35.0); Mean Corpuscular Hemoglobin 30.2 pg (27.0-33.0); Mean Corpuscular Volume 89.7 fL (80.0-98.0); NRBC Abs Auto 0.000 X10*3/uL (0.0-0.012); NRBC Pct Auto 0.0 /100WBC (0.0-0.2); Platelet Count 267 X10*3/uL (160-400); Red Blood Count 4.17 X10*6/uL (4.20-5.50); White Blood Count 5.2 X10*3/uL (4.8-10.8)
[2025-07-21 10:06] LABS: Alanine Aminotransferase 13 U/L (0-31); Albumin Level 4.4 g/dL (3.5-5.0); Alkaline Phosphatase 87 U/L (39-117); Anion Gap 13 (12-20); Aspartate Amino Transferase 15 U/L (5-31); Blood Urea Nitrogen 17 mg/dL (9-16); Calcium 9.7 mg/dL (8.4-10.2); Carbon Dioxide 22 mmol/L (22-29); Chloride 110 mmol/L (96-108); Cholesterol 228 mg/dL (<200); Estimated Glomerular Filt Rate > 60; HDL Cholesterol 46 mg/dL (>40); Iron 80 mcg/dL (30-160); Percent Iron Saturation 37 % (15-50); Potassium 3.3 mmol/L (3.3-5.1); Sodium 142 mmol/L (135-145); Total Iron Binding Capacity 219 mcg/dL (228-428); Total Protein 7.0 g/dL (6.5-8.0); Triglycerides 74 mg/dL (<150); Unsaturated Iron Binding 139 ug/dL
[2025-07-21 10:33] LABS: Ferritin 133 ng/mL (10-250)
[2025-07-21 10:38] LABS: Folate 15.1 ng/mL (> or = 4.0); Vitamin B12 782 pg/mL (200-900)
== END 2025-07-21 08:56 | disposition home or self-care (01) ==
LOC: HO.LAB 08:55
PROVIDERS: PCP Internal Medicine; Visit Provider Physician Assistant Surgical
DX: Z13.6 Encounter for screening for cardiovascular disorders (principal); Z13.1 Encounter for screening for diabetes mellitus; Z13.29 Encounter for screening for other suspected endocrine disorder; Z98.84 Bariatric surgery status
CPT/HCPCS: 36415; 80053; 80061; 82306; 82607; 82728; 82746; 83036; 83525; 83540; 84425; 84443; 84590; 84630; 85025; 86140

== ENCOUNTER 2025-07-27 08:03 | Outpatient (REF) | payer OTHER, SELFPAY ==
[2025-07-27 09:46] LABS: Cholesterol 231 mg/dL (<200); HDL Cholesterol 49 mg/dL (>40); Triglycerides 87 mg/dL (<150)
== END 2025-07-27 08:04 | disposition home or self-care (01) ==
LOC: HO.LAB 08:03
PROVIDERS: PCP Internal Medicine; Visit Provider Surgery
DX: E66.01 Morbid (severe) obesity due to excess calories (principal)
CPT/HCPCS: 36415; 80061